=== PATIENT | female | born 1960 | race Caucasian/White ===

== ENCOUNTER 2017-09-30 02:30 | Inpatient (IN) | payer OTHER ==
[2017-09-30] MEDS ORDERED: FAMOTIDINE IV 20 MG/12 ML VIAL IVPUSH ONE (03:05)
--- NOTE | 2017-09-30 03:05 | PDOC ---
History of Present Illness - General Chief Complaint: Chest Pain Stated Complaint: CHEST DISCOMFORT Time Seen by Provider: 09/30/17 02:47 History Source: Patient, Family Exam Limitations: Language Barrier - History of Present Illness Initial Comments: 09/30/17 02:59 57 y/o F with no significant PMH who presents to the ED c/o worsening chest pain over the past 10 hrs. As per pt, at 5PM she started to develop dull chest pressure in her mid-sternal area. Pt tried to sleep this evening and was woken up, as the pain became a 10/10, with sternal pressure at rest, radiating to the back. Her pain is worsened by movement, particularly by leaning forward, and is a/w SOB. Pain has no alleviating factors. She also endorses cold fingertips and nausea. Pt denies ORTIZ, fever, diaphoresis, cough, chills, V/D, recent illnesses, or changes in urinary or bowel function. She had the same pain a week ago, however it subsided on its own. 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 denies cigarette, alcohol, or recreational drug use. 09/30/17 05:45 Past History - Past Medical History Allergies/Adverse Reactions: Allergies Allergy/AdvReac Type Severity Reaction Status Date / Time No Known Allergies Allergy Verified 09/30/17 02:48 Home Medications: Ambulatory Orders NK [No Known Home Medication] 09/30/17 - Suicide/Smoking/Psychosocial Hx Smoking History: Smoker current status UNK Have you smoked in the past 12 months: No Information on smoking cessation initiated: No Hx Alcohol Use: No Drug/Substance Use Hx: No Review of Systems - Review of Systems Able to Perform ROS?: Yes Is the patient limited Romanian proficient: Yes Respiratory: Yes: Shortness of Breath, SOB at Rest Cardiac (ROS): Yes: Chest Pain All Other Systems: Reviewed and Negative *Physical Exam - Vital Signs Last Vital Signs Temp Pulse Resp BP Pulse Ox 98.1 F 78 22 134/79 99 09/30/17 02:46 09/30/17 02:46 09/30/17 02:46 09/30/17 02:46 09/30/17 02:46 - Physical Exam General Appearance: Yes: Nourished, Mild Distress HEENT: positive: EOMI, SULEIMAN Neck: positive: Supple Respiratory/Chest: positive: Chest Tender, Lungs Clear, Normal Breath Sounds Cardiovascular: positive: Regular Rhythm, Regular Rate, S1, S2 Vascular Pulses: Dorsalis-Pedis (R): 2+, Doralis-Pedis (L): 2+ Gastrointestinal/Abdominal: positive: Normal Bowel Sounds, Soft Musculoskeletal: positive: Normal Inspection Extremity: positive: Normal Range of Motion Neurologic: positive: fish smoker II-XII NML intact Heart Score/ECG Review - History History: Moderately suspicious - Electrocardiogram EKG: Normal - Age Age: 45-65 - Risk Factors Risk Factors Heart Score: Yes Hx Obesity Based on the list above the patient has:: 1-2 risk factors - Troponin Troponin: 1-3x normal limit - Score Heart Score - Total: 4 ED Treatment Course - LABORATORY CBC & Chemistry Diagram: 09/30/17 04:29 09/30/17 04:29 Medical Decision Making - Medical Decision Making 09/30/17 03:16 57 y/o F with no significant PMH who presents to the ED c/o worsening chest pain over the past 10 hrs. Current differentials include: gastritis, r/o ACS, prinzmetal's angina, PE (less likely), costochondritis. Pt with reproducible, pleuritic chest pain. Will order the following -Trops -CXR -EKG -20 mg pepcid, maalox -650mg Tylenol 09/30/17 03:57 Pt still c/o abdominal discomfort bedside US - with possible gallstones, will need RUQ sono to check CBD. r/o choledocholithiasis Will give morphine 2mg for pain, protonix 40mg IVP x 1 09/30/17 04:01 initial trop 0.11 will trend - next trop at 9:30AM will give aspirin 324 mg x 1 r/o ACS 09/30/17 04:23 EKG - WNL. normal sinus, normal axis, vent rate 75bpm, LA 152 ms, QRS 86ms, Qtc 433ms 09/30/17 04:52 14.7 leukocytosis -?GI source infection however afebrile , CMP pending ALP mildly elevated K 3.3 will supplement. 09/30/17 05:48 Microblog sent 09/30/17 06:10 Case discussed, will go to AM team- for now will put in for tele as pt with HEART 4, elevated trop Consult- Dr. Tabor 09/30/17 06:11 *DC/Admit/Observation/Transfer Diagnosis at time of Disposition: Chest pain Qualifiers: Chest pain type: unspecified Qualified Code(s): R07.9 - Chest pain, unspecified - Discharge Dispostion Condition at time of disposition: Fair Admit: Yes - Referrals Referrals: ON STAFF,NOT [Primary Care Provider] - - Patient Instructions - Post Discharge Activity
[2017-09-30] MEDS ORDERED: MAG HYDROX/AL HYDROX/SIMETH 355 ML ORAL.SUSP PO ONE (03:06)
[2017-09-30] MEDS ORDERED: ACETAMINOPHEN 325 MG TABLET (FP) PO ONE (03:07)
[2017-09-30] MEDS ORDERED: ONDANSETRON 4 MG/2 ML VIAL IVPUSH ONE (03:22)
[2017-09-30] MEDS ORDERED: MAG HYDROX/AL HYDROX/SIMETH 30 ML UNIT-DOSE CUP ONE (03:23)
[2017-09-30] MEDS ORDERED: ONDANSETRON 4 MG/2 ML VIAL ONE (03:24)
[2017-09-30] MEDS ORDERED: FAMOTIDINE 20 MG/50 ML IVPB 20 MG/50 ML MG IVPB ONE (03:24)
--- NOTE | 2017-09-30 03:48 | PDOC ---
Attending Attestation - Resident Resident Name: Anjali Cabrera - ED Attending Attestation I have performed the following: I have examined & evaluated the patient, The case was reviewed & discussed with the resident, I agree w/resident's findings & plan, Exceptions are as noted - HPI HPI: 09/30/17 03:47 57-year-old female no medical history presents with chest discomfort. The patient was fine yesterday, went to bed and then woke up with reproducible midsternal chest pain and epigastric discomfort. States radiating to her throat and makes her feel short of breath. Reports that the pain radiates to the back. Reports nausea but denies vomiting. Denies fevers or chills. Does not think any particular foods were causing the symptoms. - Physicial Exam PE: 09/30/17 03:47 GENERAL: Awake, alert, and fully oriented. Uncomfortable appearing HEAD: No signs of trauma EYES: PERRLA, EOMI, sclera anicteric, conjunctiva clear ENT: Auricles normal inspection, hearing grossly normal, nares patent NECK: Normal ROM, supple LUNGS: Breath sounds equal, clear to auscultation bilaterally. No wheezes, and no crackles HEART: Regular rate and rhythm, normal S1 and S2, no murmurs, rubs or gallops ABDOMEN: TTP epigastric. Briggs sign negative. Soft, No guarding, no rebound. No masses EXTREMITIES: Normal range of motion, no edema. No clubbing or cyanosis. No cords, erythema, or tenderness NEUROLOGICAL: Cranial nerves II through XII grossly intact. Normal speech, normal gait SKIN: Warm, Dry, normal turgor, no rashes or lesions noted. - Medical Decision Making 09/30/17 03:48 Vital Signs Temp Pulse Resp BP Pulse Ox 98.1 F 78 22 134/79 99 09/30/17 02:46 09/30/17 02:46 09/30/17 02:46 09/30/17 02:46 09/30/17 02:46 57-year-old female with no past medical history presents with atypical chest pain. We'll rule out acute coronary syndrome. I suspect this may be GI as well. such as gastritis. We'll do a bedside ultrasound to evaluate for RUQ. Treat symptoms and reassess. 09/30/17 04:05 09/30/17 04:22 09/30/17 05:26 CBC, BMP 09/30/17 04:29 09/30/17 04:29 CMP Sodium 139 mmol/L (136-145) 09/30/17 04:29 Potassium 3.3 mmol/L (3.5-5.1) L 09/30/17 04:29 Chloride 104 mmol/L (98-107) 09/30/17 04:29 Carbon Dioxide 23 mmol/L (21-32) 09/30/17 04:29 Anion Gap 12 (8-16) 09/30/17 04:29 BUN 12 mg/dL (7-18) 09/30/17 04:29 Creatinine 0.5 mg/dL (0.55-1.02) L 09/30/17 04:29 Creat Clearance w eGFR > 60 (>60) 09/30/17 04:29 Random Glucose 150 mg/dL (74-106) H 09/30/17 04:29 Calcium 8.3 mg/dL (8.5-10.1) L 09/30/17 04:29 Total Bilirubin 0.4 mg/dL (0.2-1.0) 09/30/17 04:29 AST 31 U/L (15-37) 09/30/17 04:29 ALT 51 U/L (12-78) 09/30/17 04:29 Alkaline Phosphatase 139 U/L (45-117) H 09/30/17 04:29 Creatine Kinase 93 IU/L (26-192) 09/30/17 03:23 Troponin I 0.11 ng/ml (0.00-0.05) H 09/30/17 03:23 Total Protein 7.5 g/dl (6.4-8.2) 09/30/17 04:29 Albumin 3.8 g/dl (3.4-5.0) 09/30/17 04:29 Labs reviewed. Ultrasound is still pending and needed to r/o acute wilver. However, with trop of 0.11, will need to consider as ACS. Aspirin and admit to the hospital on telemetry. Heart Score/ECG Review - History History: Moderately suspicious - Electrocardiogram EKG: Normal - Age Age: 45-65 - Risk Factors Risk Factors Heart Score: Yes Hx Obesity Based on the list above the patient has:: 1-2 risk factors - Troponin Troponin: 1-3x normal limit - Score Heart Score - Total: 4 #1 ECG reviewed & interpreted by me at: 04:20 09/30/17 04:22 NSR 75, no std/regulo, normal axis, normal intervals, QTC 433 msec
[2017-09-30] MEDS ORDERED: morphine CARPU-JECT 2 MG/1 ML DISP.SYRIN IVPUSH ONE (03:57)
[2017-09-30] MEDS ORDERED: PANTOPRAZOLE SODIUM 40 MG VIAL IVPUSH ONE (03:57)
[2017-09-30] MEDS ORDERED: ASPIRIN 81 MG CHEWABLE TABLETS PO ONE (04:05)
[2017-09-30] MEDS ORDERED: MORPHINE SULFATE 10 MG/1 ML *VIAL ONE (04:15)
[2017-09-30] MEDS ORDERED: PANTOPRAZOLE SODIUM 40 MG VIAL ONE (04:15)
[2017-09-30 04:39] LABS: BASO % 0.3 % (0-2.0); HEMATOCRIT 37.2 % (32.4-45.2); HEMOGLOBIN 12.5 GM/dL (10.7-15.3); LYMPH % 3.5 % (8-40); MCH 31.3 pg (25.7-33.7); MCHC 33.7 g/dl (32.0-36.0); MEAN CELL VOLUME 92.9 fl (80-96); MEAN PLT VOLUME 8.8 fl (7.5-11.1); NEUT % 92.2 % (42.8-82.8); PLATELET COUNT 264 K/MM3 (134-434); RDW 13.5 % (11.6-15.6); WHITE BLOOD COUNT 14.7 K/mm3 (4.0-10.0)
[2017-09-30 04:52] LABS: INR 1.1 (0.82-1.09); PROTHROMBIN TIME (PATIENT) 12.4 SEC (9.98-11.88)
[2017-09-30 04:55] LABS: ACTIVATED PTT 32.6 SECONDS (26.9-34.4)
[2017-09-30] MEDS ORDERED: ASPIRIN 81 MG CHEWABLE TABLETS ONE (04:57)
[2017-09-30 05:02] LABS: ALBUMIN 3.8 g/dl (3.4-5.0); ALK PHOS 139 U/L (45-117); ANION GAP 12 (8-16); BILIRUBIN,TOTAL 0.4 mg/dL (0.2-1.0); BLOOD UREA NITROGEN 12 mg/dL (7-18); CALCIUM 8.3 mg/dL (8.5-10.1); CHLORIDE 104 mmol/L (98-107); CO2 23 mmol/L (21-32); CREATININE 0.5 mg/dL (0.55-1.02); GLUCOSE,RANDOM 150 mg/dL (74-106); POTASSIUM 3.3 mmol/L (3.5-5.1); SGOT/AST 31 U/L (15-37); SGPT/ALT 51 U/L (12-78); SODIUM 139 mmol/L (136-145); TOT PROT 7.5 g/dl (6.4-8.2)
[2017-09-30] MEDS ORDERED: POTASSIUM CHLORIDE ORAL LIQUID 20 MEQ/15 ML PO ONE (05:05)
[2017-09-30] MEDS ORDERED: POTASSIUM CHLORIDE ORAL LIQUID 20 MEQ/15 ML ONE (05:53)
--- NOTE | 2017-09-30 08:57 | HP ---
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 Pain increases with breathing, and when she touch her lower part of sternum, pain also increases when she leans forward. Non radiating. No increase of pain with eating. Pain was not associated with diaphoresis, palpitations, dizziness, lightheadedness. Denies othopnea, paroxysmal dyspnea, denies swelling in legs, Denies trauma to chest, Denies heart burn, denies recent travel. Denies fever, cough, chills. Patient reports one episode of vomiting in hospital after her blood work was done. Pain got better after getting morphine in ED ER course was notable for: (1)cbc, cmp, ekg (2)cxr Recent Travel:no PAST MEDICAL HISTORY: no PAST SURGICAL HISTORY: no Social History: Smoking: no Alcohol: no Drugs: no Family History: No family h/o CAD Allergies No Known Allergies Allergy (Verified 09/30/17 02:48) HOME MEDICATIONS: Home Medications Medication Instructions Recorded NK [No Known Home Medication] 09/30/17 REVIEW OF SYSTEMS CONSTITUTIONAL: Absent: fever, chills, diaphoresis, generalized weakness, malaise, loss of appetite, weight change HEENT: Absent: rhinorrhea, nasal congestion, throat pain, throat swelling, difficulty swallowing, mouth swelling, ear pain, eye pain, visual changes CARDIOVASCULAR: Absent: , syncope, palpitations, irregular heart rate, lightheadedness, peripheral edema RESPIRATORY: Absent: cough, shortness of breath, dyspnea with exertion, orthopnea, wheezing, stridor, hemoptysis GASTROINTESTINAL: Absent: abdominal pain, abdominal distension, nausea, vomiting, diarrhea, constipation, melena, hematochezia GENITOURINARY: Absent: dysuria, frequency, urgency, hesitancy, hematuria, flank pain, genital pain MUSCULOSKELETAL: Absent: myalgia, arthralgia, joint swelling, back pain, neck pain NEUROLOGIC: Absent: headache, focal weakness or paresthesias, dizziness, PSYCHIATRIC: Absent: anxiety, depression, PHYSICAL EXAMINATION Vital Signs - 24 hr 09/30/17 09/30/17 02:46 08:10 Temperature 98.1 F 98 F Pulse Rate 78 Pulse Rate [ 69 Right Radial] Respiratory 22 16 Rate Blood Pressure 134/79 Blood Pressure 127/63 [Left Arm] O2 Sat by Pulse 99 100 Oximetry (%) GENERAL: Awake, alert, and fully oriented, in no acute distress. HEAD: Normal with no signs of trauma. EYES: Pupils equal, round and reactive to light, extraocular movements intact, sclera anicteric, conjunctiva clear. No lid lag. EARS, NOSE, THROAT: Ears normal, nares patent, oropharynx clear without exudates. Moist mucous membranes. NECK: Normal range of motion, supple without lymphadenopathy, JVD, or masses. LUNGS: Breath sounds equal, clear to auscultation bilaterally. No wheezes, and no crackles. No accessory muscle use. HEART: Regular rate and rhythm, normal S1 and S2 without murmur, rub or gallop. ABDOMEN: Soft, nontender, not distended, normoactive bowel sounds, no guarding, no rebound, no masses. No hepatomegaly or splenomegaly. MUSCULOSKELETAL: mild tenderness on lower costochondral juntions. UPPER EXTREMITIES: 2+ pulses, warm, well-perfused. LOWER EXTREMITIES: 2+ pulses, warm, well-perfused. No calf tenderness. No peripheral edema. NEUROLOGICAL: Cranial nerves II-XII intact. Normal speech. Normal gait. PSYCHIATRIC: Cooperative. Good eye contact. Appropriate mood and affect. SKIN: Warm, dry, normal turgor, no rashes or lesions noted, normal capillary refill. Laboratory Results - last 24 hr 09/30/17 09/30/17 09/30/17 03:23 04:29 04:29 WBC 14.7 H RBC 4.00 Hgb 12.5 Hct 37.2 MCV 92.9 MCH 31.3 MCHC 33.7 RDW 13.5 Plt Count 264 MPV 8.8 Neutrophils % 92.2 H Lymphocytes % 3.5 L Monocytes % 4.0 Eosinophils % 0.0 Basophils % 0.3 PT with INR INR PTT (Actin FS) Sodium 139 Potassium 3.3 L Chloride 104 Carbon Dioxide 23 Anion Gap 12 BUN 12 Creatinine 0.5 L Creat Clearance w eGFR > 60 Random Glucose 150 H Calcium 8.3 L Total Bilirubin 0.4 AST 31 ALT 51 Alkaline Phosphatase 139 H Creatine Kinase 93 Troponin I 0.11 H Total Protein 7.5 Albumin 3.8 09/30/17 04:29 WBC RBC Hgb Hct MCV MCH MCHC RDW Plt Count MPV Neutrophils % Lymphocytes % Monocytes % Eosinophils % Basophils % PT with INR 12.40 H INR 1.10 PTT (Actin FS) 32.6 Sodium Potassium Chloride Carbon Dioxide Anion Gap BUN Creatinine Creat Clearance w eGFR Random Glucose Calcium Total Bilirubin AST ALT Alkaline Phosphatase Creatine Kinase Troponin I Total Protein Albumin ASSESSMENT/PLAN: 57 y/o female with no significant past medical history came to hospital with complain of chest pain Chest pain: d/d costochondritis, symptomatic gall stone ds, CAD, cardiac exercise specialist Trend trop i: initial trop 0.11 monitor vitals Repeat ekg, cmp, mg, phos cardiology consult: DR curran ECHO lipid profile Ultrasound reviewed. surgery consult: for symptomatic gall stone ds. Leucocytosis: could be from gall stone ds or stress induced repeat cbc tomorrow. Fluid: NS 75ml/hr electrolyte: repeat sr k, got 20meq k in ed nutrition: NPO for now DVT pro: heparin Gi pro: pepcid dispo: admit tele Visit type - Emergency Visit Emergency Visit: Yes ED Registration Date: 09/30/17 Care time: The patient presented to the Emergency Department on the above date and was hospitalized for further evaluation of their emergent condition. - New Patient This patient is new to me today: Yes Date on this admission: 09/30/17 - Critical Care Critical Care patient: No Hospitalist Screening - Colonoscopy Questionnaire Colonoscopy Questionnaire: Colonoscopy Questionnaire - Patient: 50 - 75 years old and never had a screening colonoscopy: Unknown History of colon or rectal polyps, or CA: Unknown History of IBD, Crohn's disease or UC: Unknown History of abdominal radiation therapy as a child: Unknown - Relative: 1 with colon or rectal CA, or polyps at age 60 or younger: Unknown Colon or rectal CA diagnosed at age 45 or younger: Unknown Multiple relatives with colon or rectal CA: Unknown - Outcome: Screening Result: Negative Screen
[2017-09-30] MEDS ORDERED: MORPHINE SULFATE 10 MG/1 ML *VIAL IM PRN (09:14)
[2017-09-30] MEDS ORDERED: SODIUM CHLORIDE 1,000 ML IV SCH (09:15)
[2017-09-30 09:51] LABS: ALBUMIN 3.4 g/dl (3.4-5.0); ANION GAP 6 (8-16); BLOOD UREA NITROGEN 11 mg/dL (7-18); CALCIUM 8.1 mg/dL (8.5-10.1); CHLORIDE 108 mmol/L (98-107); CHOLESTEROL 155 mg/dL (50-200); CO2 26 mmol/L (21-32); CREATININE 0.6 mg/dL (0.55-1.02); GLUCOSE,RANDOM 109 mg/dL (74-106); MAGNESIUM 2.1 mg/dL (1.8-2.4); PHOSPHOROUS 3.5 mg/dL (2.5-4.9); POTASSIUM 4.3 mmol/L (3.5-5.1); SGOT/AST 27 U/L (15-37); SGPT/ALT 49 U/L (12-78); SODIUM 140 mmol/L (136-145)
[2017-09-30 09:54] LABS: ALK PHOS 126 U/L (45-117); BILIRUBIN,TOTAL 0.6 mg/dL (0.2-1.0); HDL CHOLESTEROL 62 mg/dL (40-60); LDL CHOLESTEROL (ONLY SJRH) 87 mg/dL (5-100); TOT PROT 6.8 g/dl (6.4-8.2); TRIGLYCERIDES 51 mg/dL (35-160)
[2017-09-30] MEDS ORDERED: FAMOTIDINE IV 20 MG/12 ML VIAL IVPUSH SCH (10:00)
[2017-09-30 10:26] LABS: URINE APPEARANCE CLEAR; URINE BILIRUBIN NEGATIVE (NEGATIVE); URINE BLOOD 2+ (NEGATIVE); URINE COLOR YELLOW; URINE GLUCOSE (UA) NEGATIVE (NEGATIVE); URINE KETONE NEGATIVE (NEGATIVE); URINE LEUK ESTERASE NEGATIVE (NEGATIVE); URINE NITRITE NEGATIVE (NEGATIVE); URINE PROTEIN NEGATIVE (NEGATIVE); URINE UROBILINOGEN NEGATIVE mg/dL (0.2-1.0)
[2017-09-30] MEDS: HEPARIN NA (PORCINE) 5,000 UNITS/ML 1ML VIAL SQ SCH ×3 (10:30→22:13)
[2017-09-30] MEDS: FAMOTIDINE 20 MG/50 ML IVPB 20 MG/50 ML MG IVPB SCH ×2 (10:30→22:13)
--- NOTE | 2017-09-30 10:30 | CONSULT ---
- Consultation REQUESTING PROVIDER: Jamar EL CONSULT REQUEST: We have been asked to surgically evaluate this patient for possible symptomatic gallbladder disease PCP:Taurus Alan MD HISTORY OF PRESENT ILLNESS: 57 y/o female presented to the ED w/ SSCP and SOB which is recurrent over the last 10 days; she denies n/v/ fatty food intoelerance; pain occurred w/o relation to eating and was originally described as "heartburn"; she denies abdominal pain per se and points to her sternum as to where the pressure like/burning pain is at this time; a dx. w/u is in progress PMHx: none PSHx: none Home Medications Medication Instructions Recorded NK [No Known Home Medication] 09/30/17 Allergies Allergy/AdvReac Type Severity Reaction Status Date / Time No Known Allergies Allergy Verified 09/30/17 02:48 PHYSICAL EXAM: GENERAL: Awake, alert, and fully oriented, in no acute distress. HEAD: Normal with no signs of trauma. EYES: PERRL, sclera anicteric, conjunctiva clear. NECK: Normal ROM, supple without lymphadenopathy, JVD, or masses. ABDOMEN: Soft, nontender, not distended, normoactive bowel sounds, no guarding, no rebound, no masses. No organomegaly. No scars; no hernias MUSCULOSKELETAL: Normal ROM at all joints. No bony deformities or tenderness. No CVA tenderness. UPPER EXTREMITIES: 2+ pulses, warm, well-perfused. No cyanosis. Cap refill <2 seconds. No peripheral edema. LOWER EXTREMITIES: 2+ pulses, warm, well-perfused. No calf tenderness. No peripheral edema. NEUROLOGICAL: Normal speech, gait not observed. PSYCH: Cooperative. Good eye contact. Appropriate mood and affect. SKIN: Warm, dry, normal turgor, no rashes or lesions noted. Vital Signs Temperature 98 F 09/30/17 08:10 Pulse Rate 69 09/30/17 08:10 Respiratory Rate 16 09/30/17 08:10 Blood Pressure 127/63 09/30/17 08:10 O2 Sat by Pulse Oximetry (%) 100 09/30/17 08:10 Lab Results WBC 14.7 K/mm3 (4.0-10.0) H 09/30/17 04:29 RBC 4.00 M/mm3 (3.60-5.2) 09/30/17 04:29 Hgb 12.5 GM/dL (10.7-15.3) 09/30/17 04:29 Hct 37.2 % (32.4-45.2) 09/30/17 04:29 MCV 92.9 fl (80-96) 09/30/17 04:29 MCHC 33.7 g/dl (32.0-36.0) 09/30/17 04:29 RDW 13.5 % (11.6-15.6) 09/30/17 04:29 Plt Count 264 K/MM3 (134-434) 09/30/17 04:29 Sodium 140 mmol/L (136-145) 09/30/17 09:05 Potassium 4.3 mmol/L (3.5-5.1) 09/30/17 09:05 Chloride 108 mmol/L (98-107) H 09/30/17 09:05 Carbon Dioxide 26 mmol/L (21-32) 09/30/17 09:05 Anion Gap 6 (8-16) L 09/30/17 09:05 BUN 11 mg/dL (7-18) 09/30/17 09:05 Creatinine 0.6 mg/dL (0.55-1.02) 09/30/17 09:05 Random Glucose 109 mg/dL (74-106) H 09/30/17 09:05 Calcium 8.1 mg/dL (8.5-10.1) L 09/30/17 09:05 INR 1.10 (0.82-1.09) 09/30/17 04:29 US reviewed/labs reviewed. IMP:doubt symptomatic gallbladder disease given hx. and physical fndings; would continuw w/u for other causes including cardiac and if neg GI eval to r/o GERD / PUD PLAN: Would keep NPO/IVF/PPI's; will f/u. Anish Conte MD FACS Visit type - Case Type Case Type: ED Admission - Emergency Emergency Visit: Yes ED Registration Date: 09/30/17 Care time: The patient presented to the Emergency Department on the above date and was hospitalized for further evaluation of their emergent condition. - New patient This patient is new to me today: Yes Date on this admission: 09/30/17 - Critical Care Critical Care patient: No
--- NOTE | 2017-09-30 10:31 | PN ---
Teaching Attending Note Name of Resident: Silviano Monte ATTENDING PHYSICIAN STATEMENT Time of evaluation: 8:30 Am I saw and evaluated the patient. I reviewed the resident's note and discussed the case with the resident. I agree with the resident's findings and plan as documented. SUBJECTIVE: 57 yof with no significant pMHX comes with chest pain starting last night, reports substernal/epigastric dull, worsened with movements and sitting up, inability to catch full breath, initially radiation to back that markedly improved with morphine in the ED. Had an episode of vomiting in the ED, denies any fevers chills, otherwise abdominal pain, or changes in bowels. Similar milder episode sometime back with spontaneous resolution. Currently with minimal discomfort in lower sternal/epigastric region thats worse with touch, movements and deep breath sounds with focal tenderness in the area. 12 point ROS done, neg except above. OBJECTIVE: Vital Signs Period Temp Pulse Resp BP Sys/Rao Pulse Ox Last 24 Hr 98 F-98.1 F 69-78 16-22 127-134/63-79 99-100 Intake & Output 09/27/17 09/28/17 09/29/17 09/30/17 23:59 23:59 23:59 23:59 Intake Total 400 Balance 400 Weight 140 lb GENERAL: Awake, alert, and fully oriented, in no acute distress. HEAD: Normal with no signs of trauma. EYES: Pupils equal, round and reactive to light, extraocular movements intact, sclera anicteric, conjunctiva clear. No lid lag. EARS, NOSE, THROAT: Ears normal, nares patent, oropharynx clear without exudates. Moist mucous membranes. NECK: Normal range of motion, supple without lymphadenopathy, JVD, or masses. LUNGS: Breath sounds equal, clear to auscultation bilaterally. No wheezes, and no crackles. No accessory muscle use. tenderness in lower sternal region HEART: Regular rate and rhythm, normal S1 and S2 without murmur, rub or gallop. ABDOMEN: Soft, mild tenderness in epigastric region, neg Cecil sign(examined at bedside), not distended, normoactive bowel sounds, no guarding, no rebound, no masses. No hepatomegaly or splenomegaly. MUSCULOSKELETAL: Normal range of motion at all joints. No bony deformities or tenderness. No CVA tenderness. UPPER EXTREMITIES: 2+ pulses, warm, well-perfused. No cyanosis. No clubbing. No peripheral edema. LOWER EXTREMITIES: 2+ pulses, warm, well-perfused. No calf tenderness. No peripheral edema. NEUROLOGICAL: Cranial nerves II-XII intact. Normal speech. PSYCHIATRIC: Cooperative. Good eye contact. Appropriate mood and affect. SKIN: Warm, dry, normal turgor, no rashes or lesions noted, normal capillary refill. Home Medication List Medication Instructions Recorded Confirmed Type NK [No Known Home Medication] 09/30/17 09/30/17 History Active Medications Generic Name Dose Route Start Last Admin Trade Name Freq PRN Reason Stop Dose Admin Acetaminophen 650 mg 09/30/17 09:16 Tylenol - PO Q6H PRN PAIN LEVEL 1-5 Heparin Sodium (Porcine) 5,000 unit 09/30/17 10:00 09/30/17 10:30 Heparin - SQ 5,000 unit TID GWYN Administration Famotidine/Sodium Chloride 20 mg in 50 mls @ 100 mls/hr 09/30/17 10:00 10:30 Pepcid 20 Mg Premixed Ivpb - IVPB 100 mls/hr BID GWYN Administration CEFTRIAXONE 1 G/50 ML PREMIX 50 mls @ 100 mls/hr 09/30/17 11:00 Ceftriaxone 1 Gm-D5w Bag IVPB DAILY GWYN Metronidazole 500 mg in 100 mls @ 100 mls/hr 09/30/17 11:00 Flagyl 500mg Premixed Ivpb - IVPB Q8H-IV GWYN Dextrose/Sodium Chloride 1,000 mls @ 75 mls/hr 09/30/17 10:45 D5-Ns - IV ASDIR GWYN Morphine Sulfate 1 mg 09/30/17 09:14 Morphine Injection - IM Q6H PRN PAIN LEVEL 6-10 Promethazine HCl 12.5 mg 09/30/17 09:12 Phenergan Injection - IVPB Q6H PRN NAUSEA AND/OR VOMITING Laboratory Results - last 24 hr 09/30/17 09/30/17 09/30/17 03:23 04:29 04:29 WBC 14.7 H RBC 4.00 Hgb 12.5 Hct 37.2 MCV 92.9 MCH 31.3 MCHC 33.7 RDW 13.5 Plt Count 264 MPV 8.8 Neutrophils % 92.2 H Lymphocytes % 3.5 L Monocytes % 4.0 Eosinophils % 0.0 Basophils % 0.3 PT with INR INR PTT (Actin FS) D-Dimer Sodium 139 Potassium 3.3 L Chloride 104 Carbon Dioxide 23 Anion Gap 12 BUN 12 Creatinine 0.5 L Creat Clearance w eGFR > 60 Random Glucose 150 H Calcium 8.3 L Phosphorus Magnesium Total Bilirubin 0.4 AST 31 ALT 51 Alkaline Phosphatase 139 H Creatine Kinase 93 Troponin I 0.11 H Total Protein 7.5 Albumin 3.8 Triglycerides Cholesterol Total LDL Cholesterol HDL Cholesterol 09/30/17 09/30/17 09/30/17 04:29 09:05 09:05 WBC RBC Hgb Hct MCV MCH MCHC RDW Plt Count MPV Neutrophils % Lymphocytes % Monocytes % Eosinophils % Basophils % PT with INR 12.40 H INR 1.10 PTT (Actin FS) 32.6 D-Dimer 602 H Sodium 140 Potassium 4.3 Chloride 108 H Carbon Dioxide 26 Anion Gap 6 L BUN 11 Creatinine 0.6 Creat Clearance w eGFR > 60 Random Glucose 109 H Calcium 8.1 L Phosphorus 3.5 Magnesium 2.1 Total Bilirubin 0.6 D AST 27 ALT 49 Alkaline Phosphatase 126 H Creatine Kinase Troponin I Total Protein 6.8 Albumin 3.4 Triglycerides 51 Cholesterol 155 Total LDL Cholesterol 87 HDL Cholesterol 62 H 09/30/17 09:05 WBC RBC Hgb Hct MCV MCH MCHC RDW Plt Count MPV Neutrophils % Lymphocytes % Monocytes % Eosinophils % Basophils % PT with INR INR PTT (Actin FS) D-Dimer Sodium Potassium Chloride Carbon Dioxide Anion Gap BUN Creatinine Creat Clearance w eGFR Random Glucose Calcium Phosphorus Magnesium Total Bilirubin AST ALT Alkaline Phosphatase Creatine Kinase Troponin I 0.06 H Total Protein Albumin Triglycerides Cholesterol Total LDL Cholesterol HDL Cholesterol ASSESSMENT AND PLAN: 57 yof with no significant PMHX admitted with lower chest/epigastric pain, found with symptomatic gall bladder disease and cholelithiasis -Chest/Epigastric pain, earlier radiation to back, Symptomatic gall bladder disease +/- Mild acute gall stone pancreatitis -Atypical chest pain, low suspicion for ACS given presentation and above findings,unlikely PE given absence of tachycardia, hypoxia, risk factors, strong alternative explanation and tenderness on exam Plan: NPO, surgery consult with Dr. Conte. Check lipase/amylase. Ceftriaxone/flagyl, D5NS IVF. MRCP, GI input accordingly. Tn noted. Telemetry, check 2 D echo. Cardiology consulted in ED,low suspicion currently. Repeat EKG GI/DVTPPX dispo pending resolution of medical issues. Plan discussed with patient in detail, all questions answered.
[2017-09-30 10:39] LABS: EPI CELLS RARE /HPF (FEW); URINE MUCUS MANY
[2017-09-30] MEDS ORDERED: DEXTROSE 5%-NORMAL SALINE 1,000 ML IV SCH (10:45)
--- NOTE | 2017-09-30 11:38 | EKG ---
Test Reason : Blood Pressure : / mmHG Vent. Rate : 076 BPM Atrial Rate : 076 BPM P-R Int : 156 ms QRS Dur : 090 ms QT Int : 396 ms P-R-T Axes : 061 036 030 degrees QTc Int : 445 ms NORMAL SINUS RHYTHM WHEN COMPARED WITH ECG OF 30-SEP-2017 04:17, NO SIGNIFICANT CHANGE WAS FOUND Confirmed by MD KATELYN, PILAR ([id number]) on 09/30/2017 11:37:37 AM Referred By: Subha CHACON Confirmed By:PILAR ZEPEDA MD
--- NOTE | 2017-09-30 11:38 | EKG ---
Test Reason : Blood Pressure : / mmHG Vent. Rate : 075 BPM Atrial Rate : 075 BPM P-R Int : 152 ms QRS Dur : 086 ms QT Int : 388 ms P-R-T Axes : 048 032 024 degrees QTc Int : 433 ms POOR DATA QUALITY, INTERPRETATION MAY BE ADVERSELY AFFECTED NORMAL SINUS RHYTHM NORMAL ECG NO PREVIOUS ECGS AVAILABLE Confirmed by MD KATELYN, PILAR ([id number]) on 09/30/2017 11:38:17 AM Referred By: Confirmed By:PILAR ZEPEDA MD
[2017-09-30 13:04] VITALS: BMI 26.6
[2017-09-30] MEDS: CEFTRIAXONE 1 G/50 ML PREMIX 50 ML IVPB SCH (13:17)
--- NOTE | 2017-09-30 14:59 | CON.CARD ---
Consult Consult Specialty:: Cardiology Reason for Consultation:: chest pain - History of Present Illness History of Present Illness: 57 y/o female with no significant past medical history admitted with constant chest pain which started yesterday, constant, pressure type, with radiation to the shoulders. Pain increases with breathing, and when she touch her lower part of sternum, pain also increases when she leans forward. No diaphoresis, palpitations, dizziness, lightheadedness. Denies othopnea, paroxysmal dyspnea. ECG was normal. Pain got better after getting morphine in ED She has minimally elevated TP-I and elevated DDimer - History Source History Provided By: Patient, Medical Record Limitations to Obtaining History: No Limitations - Alcohol/Substance Use Hx Alcohol Use: No - Smoking History Smoking history: Never smoked Have you smoked in the past 12 months: No Home Medications - Allergies Allergies/Adverse Reactions: Allergies Allergy/AdvReac Type Severity Reaction Status Date / Time No Known Allergies Allergy Verified 09/30/17 02:48 - Home Medications Home Medications: Ambulatory Orders NK [No Known Home Medication] 09/30/17 Review of Systems - Review of Systems Constitutional: reports: No Symptoms Eyes: reports: No Symptoms HENT: reports: No Symptoms Neck: reports: No Symptoms Cardiovascular: reports: Chest Pain. denies: Edema, Palpitations, Shortness of Breath Respiratory: denies: Cough, Exercise Intolerance, Hemoptysis, Orthopnea, SOB Gastrointestinal: reports: Abdominal Pain Endocrine: reports: No Symptoms. denies: Excessive Sweating, Flushing, Increased Hunger, Increased Thirst, Intolerance to Cold Vital Signs: Vital Signs Temperature 99.0 F 09/30/17 14:11 Pulse Rate 80 09/30/17 14:11 Respiratory Rate 16 09/30/17 14:11 Blood Pressure 122/78 09/30/17 14:11 O2 Sat by Pulse Oximetry (%) 100 09/30/17 08:10 Constitutional: Yes: Well Nourished, No Distress, Calm Eyes: Yes: Conjunctiva Clear, EOM Intact HENT: Yes: Atraumatic, Normocephalic Neck: Yes: Supple, Trachea Midline Respiratory: Yes: Regular, CTA Bilaterally Gastrointestinal: Yes: Normal Bowel Sounds, Soft Cardiovascular: Yes: Regular Rate and Rhythm, Other (Moderate reproducible chest pain.). No: Pulse Irregular, Gallop, Rub, Varicosities JVD: No Carotid Bruit: No PMI: Non-Displaced Heart Sounds: Yes: S1, S2 Murmur: No: Systolic Murmur, Diastolic Murmur Edema: No - Other Data Labs, Other Data: CBC, BMP 09/30/17 04:29 09/30/17 09:05 INR, PTT INR 1.10 (0.82-1.09) 09/30/17 04:29 Troponin, BNP 09/30/17 09/30/17 03:23 09:05 Troponin I 0.11 H 0.06 H Troponin, BNP 09/30/17 09/30/17 03:23 09:05 Troponin I 0.11 H 0.06 H NSR no STT changes Imaging - Results Chest X-ray: Report Reviewed Problem List - Problems (1) Chest pain Code(s): R07.9 - CHEST PAIN, UNSPECIFIED Qualifiers: Chest pain type: unspecified Qualified Code(s): R07.9 - Chest pain, unspecified Assessment/Plan 57 F with reporducible CP now relieved with mildly elevated TP-I and Ddimer level, leukocytosis and normal ECG. Doubt acute ischemic injury. TP-i less sensitive adn CP atypical. Suggest nuclear stress test to exclude CAD and assess LV function.
[2017-09-30] MEDS ORDERED: FLU VACCINE QUAD 60 MCG/0.5 ML (MDV 17-18) IM ONE (15:00)
[2017-09-30] MEDS: DEXTROSE 5%-NORMAL SALINE 1,000 ML IV SCH (15:15)
[2017-09-30] MEDS: ACETAMINOPHEN 325 MG TABLET (FP) PO PRN (17:11)
[2017-09-30] MEDS: PROMETHAZINE HCL 25 MG/1 ML VIAL IVPB PRN (17:34)
[2017-10-01] MEDS: DEXTROSE 5%-NORMAL SALINE 1,000 ML IV SCH ×2 (01:10→15:17)
[2017-10-01] MEDS: HEPARIN NA (PORCINE) 5,000 UNITS/ML 1ML VIAL SQ SCH (06:08)
[2017-10-01] MEDS ORDERED: METOPROLOL TARTRATE 5 MG/5 ML VIAL IVPUSH ONE (07:26)
[2017-10-01] MEDS ORDERED: METOPROLOL TARTRATE 5 MG/5 ML VIAL ONE (07:29)
[2017-10-01 07:39] LABS: BASO % 0.1 % (0-2.0); EOS % 0.1 % (0-4.5); HEMOGLOBIN 11.4 GM/dL (10.7-15.3); MCH 31.9 pg (25.7-33.7); MCHC 34.4 g/dl (32.0-36.0); MEAN CELL VOLUME 92.6 fl (80-96); MEAN PLT VOLUME 9.1 fl (7.5-11.1); MONO % 9.6 % (3.8-10.2); NEUT % 77.2 % (42.8-82.8); PLATELET COUNT 223 K/MM3 (134-434); RBC 3.56 M/mm3 (3.60-5.2); RDW 13.8 % (11.6-15.6); WHITE BLOOD COUNT 9.8 K/mm3 (4.0-10.0)
[2017-10-01] MEDS ORDERED: dilTIAZem HCL 50 MG/10 ML - 10 ML VIAL IVPUSH ONE ×2 (07:57→09:14)
--- NOTE | 2017-10-01 07:57 | PN ---
Teaching Attending Note Name of Resident: Shani Roldan ATTENDING PHYSICIAN STATEMENT I saw and evaluated the patient. I reviewed the resident's note and discussed the case with the resident. I agree with the resident's findings and plan as documented. SUBJECTIVE: Called as patient tachycardic, rapid afib 150s-170s, patient seen , reports palpitations and dizziness. Also still with lower sternal epigastric pain, intermittent but better and worse with deep breaths. no nausea, vomiting, chest pressure or new complaints otherwise. OBJECTIVE: Vital Signs Period Temp Pulse Resp BP Sys/Rao Pulse Ox Last 24 Hr 98 F-100.8 F 64-158 16-18 122-154/63-99 94-100 Intake & Output 09/28/17 09/29/17 09/30/17 10/01/17 23:59 23:59 23:59 23:59 Intake Total 1070 Balance 1070 Weight 146 lb General: lying in bed in no acute distress Chest: CTAB, no rales or wheezing Abdomen: soft, minimal lower sternal/epigastric tenderness, no voluntary or involuntary guarding or rigidity, positive bowel sounds CVS;S1s2 irregular rapid extremities: no edema Home Medication List Medication Instructions Recorded Confirmed Type NK [No Known Home Medication] 09/30/17 09/30/17 History Active Medications Generic Name Dose Route Start Last Admin Trade Name Melissa PRN Reason Stop Dose Admin Acetaminophen 650 mg 09/30/17 09:16 09/30/17 17:11 Tylenol - PO 650 mg Q6H PRN Administration PAIN LEVEL 1-5 Diltiazem HCl 10 mg 10/01/17 07:57 Cardizem Injection - IVPUSH 10/01/17 07:58 ONCE ONE Diltiazem HCl 30 mg 10/01/17 12:00 Cardizem - PO Q6HPO GWYN Diltiazem HCl 30 mg 10/01/17 07:58 Cardizem - PO 10/01/17 07:59 ONCE ONE Heparin Sodium (Porcine) 5,000 unit 09/30/17 10:00 10/01/17 06:08 Heparin - SQ 5,000 unit TID GWYN Administration Famotidine/Sodium Chloride 20 mg in 50 mls @ 100 mls/hr 09/30/17 10:00 22:13 Pepcid 20 Mg Premixed Ivpb - IVPB 100 mls/hr BID GWYN Administration CEFTRIAXONE 1 G/50 ML PREMIX 50 mls @ 100 mls/hr 09/30/17 11:00 09/30/17 13: 17 Ceftriaxone 1 Gm-D5w Bag IVPB 100 mls/hr DAILY GWYN Administration Metronidazole 500 mg in 100 mls @ 100 mls/hr 09/30/17 11:00 10/01/17 01:09 Flagyl 500mg Premixed Ivpb - IVPB 100 mls/hr Q8H-IV WGYN Administration Dextrose/Sodium Chloride 1,000 mls @ 100 mls/hr 09/30/17 13:40 10/01/17 01:10 D5-Ns - IV 100 mls/hr ASDIR GWYN Administration Diltiazem HCl 125 mg/ Dextrose 125 mls @ 5 mls/hr 10/01/17 08:00 IVPB TITR GWYN Protocol 5 MG/HR Morphine Sulfate 1 mg 09/30/17 09:14 09/30/17 11:37 Morphine Injection - IM 1 mg Q6H PRN Administration PAIN LEVEL 6-10 Promethazine HCl 12.5 mg 09/30/17 09:12 09/30/17 17:34 Phenergan Injection - IVPB 12.5 mg Q6H PRN Administration NAUSEA AND/OR VOMITING Laboratory Results - last 24 hr 09/30/17 09/30/17 09/30/17 09:05 09:05 09:05 WBC RBC Hgb Hct MCV MCH MCHC RDW Plt Count MPV Neutrophils % Lymphocytes % Monocytes % Eosinophils % Basophils % D-Dimer 602 H Sodium 140 Potassium 4.3 Chloride 108 H Carbon Dioxide 26 Anion Gap 6 L BUN 11 Creatinine 0.6 Creat Clearance w eGFR > 60 Random Glucose 109 H Calcium 8.1 L Phosphorus 3.5 Magnesium 2.1 Total Bilirubin 0.6 D AST 27 ALT 49 Alkaline Phosphatase 126 H Troponin I 0.06 H Total Protein 6.8 Albumin 3.4 Triglycerides 51 Cholesterol 155 Total LDL Cholesterol 87 HDL Cholesterol 62 H Total Amylase 57 Lipase 72 L Urine Color Urine Appearance Urine pH Ur Specific [place] Urine Protein Urine Glucose (UA) Urine Ketones Urine Blood Urine Nitrite Urine Bilirubin Urine Urobilinogen Ur Leukocyte Esterase Urine WBC (Auto) Urine RBC (Auto) Ur Epithelial Cells Urine Mucus 09/30/17 10/01/17 09:30 06:20 WBC 9.8 D RBC 3.56 L Hgb 11.4 Hct 33.0 MCV 92.6 MCH 31.9 MCHC 34.4 RDW 13.8 Plt Count 223 MPV 9.1 Neutrophils % 77.2 Lymphocytes % 13.0 D Monocytes % 9.6 D Eosinophils % 0.1 D Basophils % 0.1 D-Dimer Sodium Potassium Chloride Carbon Dioxide Anion Gap BUN Creatinine Creat Clearance w eGFR Random Glucose Calcium Phosphorus Magnesium Total Bilirubin AST ALT Alkaline Phosphatase Troponin I Total Protein Albumin Triglycerides Cholesterol Total LDL Cholesterol HDL Cholesterol Total Amylase Lipase Urine Color Yellow Urine Appearance Clear Urine pH 6.0 Ur Specific [place] 1.017 Urine Protein Negative Urine Glucose (UA) Negative Urine Ketones Negative Urine Blood 2+ H Urine Nitrite Negative Urine Bilirubin Negative Urine Urobilinogen Negative Ur Leukocyte Esterase Negative Urine WBC (Auto) 8 Urine RBC (Auto) 12 Ur Epithelial Cells Rare Urine Mucus Many MRCP done, report pending (radiology called) EKG: afib with RVR 150s, T inversions in with < [address] depressions in V3-V6, T inversion in II repeat EKG (after metoprolol 5 mg IV and cardizem 10 mg IV) Afib 80s, otherwise unchanged ASSESSMENT AND PLAN: 57 yof admitted with chest/abdominal pain, now with rapid Afib with RVR. -New onset rapid Afib with RVR -Epigastric/Lower sternal pain, ?symptomatic gall bladder disease, vs atypical cardiac symptoms, r/o PE -SIRS (fevers, tachycardia and elevated WBC on admission) Plan: Rate improved with lopressor 5 mg IV and cardizem 10 mg IV, still Afib. Cardizem drip if recurrent tachycardia. Start cardizem PO 30 mg q6h. Check TSH, Troponin. Given tachycardia, with ?pleuritic chest pain and borderline d-dimer, CTA chest. Called placed out cardiology, Dr. Jhaveri covering, await call back. Start anti-coagulation pending above and FOBT. Radiology called to retrive MRI results, will follow up. COntinue NPO, ceftriaxone/flagyl day 2. Surgery input noted, continue to monitor. IV PPI, supportive treatment. [facility] as needs cardizem drip and closer monitoring. Plan discussed with patient and nursing. Total critical care time spent at bedside 35 min.
[2017-10-01] MEDS ORDERED: dilTIAZem HCL 30 MG TABLET (FP) PO ONE (07:58)
[2017-10-01] MEDS ORDERED: DILTIAZEM INJECTION 125 MG in DEXTROSE 5%-WATER - 100 ML IVPB SCH (08:00)
[2017-10-01 08:04] LABS: ANION GAP 9 (8-16); BLOOD UREA NITROGEN 8 mg/dL (7-18); CALCIUM 7.6 mg/dL (8.5-10.1); CHLORIDE 111 mmol/L (98-107); CO2 23 mmol/L (21-32); GLUCOSE,RANDOM 121 mg/dL (74-106); POTASSIUM 3.3 mmol/L (3.5-5.1); SGPT/ALT 38 U/L (12-78); SODIUM 143 mmol/L (136-145)
[2017-10-01 08:07] LABS: ALK PHOS 98 U/L (45-117); BILIRUBIN,TOTAL 0.5 mg/dL (0.2-1.0); CREATININE 0.5 mg/dL (0.55-1.02); SGOT/AST 16 U/L (15-37); TOT PROT 6.3 g/dl (6.4-8.2)
[2017-10-01] MEDS: CEFTRIAXONE 1 G/50 ML PREMIX 50 ML IVPB SCH (09:36)
[2017-10-01] MEDS: FAMOTIDINE 20 MG/50 ML IVPB 20 MG/50 ML MG IVPB SCH ×2 (09:36→21:20)
[2017-10-01] MEDS ORDERED: dilTIAZem HCL 30 MG TABLET (FP) PO SCH (12:00)
[2017-10-01] MEDS ORDERED: ATROPINE SO4 0.4 MG/1 ML VIAL IVPUSH PRN (12:09)
[2017-10-01] MEDS ORDERED: ENOXAPARIN NA (PORCINE) 80 MG/0.8 ML DISP.SYRIN SQ SCH (12:30)
--- NOTE | 2017-10-01 14:21 | EKG ---
Test Reason : Blood Pressure : / mmHG Vent. Rate : 156 BPM Atrial Rate : 081 BPM P-R Int : 000 ms QRS Dur : 080 ms QT Int : 272 ms P-R-T Axes : 052 027 -02 degrees QTc Int : 438 ms POOR DATA QUALITY, INTERPRETATION MAY BE ADVERSELY AFFECTED ATRIAL FIBRILLATION WITH RAPID VENTRICULAR RESPONSE NONSPECIFIC ST AND T WAVE ABNORMALITY ABNORMAL ECG Confirmed by MD KATELYN, PILAR ([id number]) on 10/01/2017 2:20:31 PM Referred By: Confirmed By:PILAR ZEPEDA MD
--- NOTE | 2017-10-01 14:44 | PN ---
Progress Note, Physician Chief Complaint: Rapid Afib-fairly asymptomatic with mild dyspnea and dizziness. On diltiazem drip had pauses of 4 sec. She converted to NSR. Still has epigastric pain which improves when sitting up. History of Present Illness: 57 y/o female with no significant past medical history admitted with constant chest pain which started yesterday, constant, pressure type, with radiation to the shoulders. Pain increases with breathing, and when she touch her lower part of sternum, pain also increases when she leans forward. No diaphoresis, palpitations, dizziness, lightheadedness. Denies othopnea, paroxysmal dyspnea. ECG was normal. Pain got better after getting morphine in ED She has minimally elevated TP-I and elevated DDimer - Current Medication List Current Medications: Active Medications Acetaminophen (Tylenol -) 650 mg PO Q6H PRN PRN Reason: PAIN LEVEL 1-5 Last Admin: 09/30/17 17:11 Dose: 650 mg Atropine Sulfate (Atropine Injection -) 0.4 mg IVPUSH ONCE PRN PRN Reason: ASTHMA Enoxaparin Sodium (Lovenox -) 67 mg SQ ONCE [facility] Last Admin: 10/01/17 14:26 Dose: Not Given Famotidine/Sodium Chloride (Pepcid 20 Mg Premixed Ivpb -) 20 mg in 50 mls @ 100 mls/hr IVPB BID [facility] Last Admin: 10/01/17 09:36 Dose: 100 mls/hr CEFTRIAXONE 1 G/50 ML PREMIX (Ceftriaxone 1 Gm-D5w Bag) 50 mls @ 100 mls/hr IVPB DAILY [facility] Last Admin: 10/01/17 09:36 Dose: 100 mls/hr Metronidazole (Flagyl 500mg Premixed Ivpb -) 500 mg in 100 mls @ 100 mls/hr IVPB Q8H-IV GWYN Last Admin: 10/01/17 09:36 Dose: 100 mls/hr Dextrose/Sodium Chloride (D5-Ns -) 1,000 mls @ 100 mls/hr IV ASDIR [facility] Last Admin: 10/01/17 01:10 Dose: 100 mls/hr Diltiazem HCl 125 mg/ Dextrose 125 mls @ 5 mls/hr IVPB TITR GWYN; 5 MG/HR PRN Reason: Protocol Last Titration: 10/01/17 11:00 Dose: 15 mg/hr, 15 mls/hr Morphine Sulfate (Morphine Injection -) 1 mg IM Q6H PRN PRN Reason: PAIN LEVEL 6-10 Last Admin: 09/30/17 11:37 Dose: 1 mg Promethazine HCl (Phenergan Injection -) 12.5 mg IVPB Q6H PRN PRN Reason: NAUSEA AND/OR VOMITING Last Admin: 09/30/17 17:34 Dose: 12.5 mg - Objective Vital Signs: Vital Signs Temperature 98.9 F 10/01/17 06:00 Pulse Rate 170 H 10/01/17 11:00 Respiratory Rate 10/01/17 08:26 Blood Pressure 106/74 10/01/17 11:00 O2 Sat by Pulse Oximetry (%) 94 L 09/30/17 20:16 Constitutional: Yes: Well Nourished, No Distress, Calm Eyes: Yes: Conjunctiva Clear, EOM Intact HENT: Yes: Atraumatic, Normocephalic Neck: Yes: Supple, Trachea Midline Cardiovascular: Yes: Regular Rate and Rhythm Respiratory: Yes: Regular, CTA Bilaterally Gastrointestinal: Yes: Normal Bowel Sounds, Soft Edema: No Peripheral Pulses WNL: Yes Labs: CBC, BMP 10/01/17 06:20 10/01/17 06:20 INR, PTT INR 1.10 (0.82-1.09) 09/30/17 04:29 - ....Imaging Cat Scan: Report Reviewed Problem List - Problems (1) Chest pain Code(s): R07.9 - CHEST PAIN, UNSPECIFIED Qualifiers: Chest pain type: unspecified Qualified Code(s): R07.9 - Chest pain, unspecified (2) Afib Code(s): I48.91 - UNSPECIFIED ATRIAL FIBRILLATION Assessment/Plan 57 F with reporducible CP improved when sitting with mildly elevated TP-I and Ddimer level, leukocytosis. SHe had transient rapid afib with tachybrady and converted to NSR. CT chest shows pericardial effusion, possible PNA 1. Clinical picture consistent with pericarditis. -Check CRP and ESR -Correct hypokalemia -Add Colchecine 0.6 bid -Add Ibuprofen 600mg TID -Echocardiogram to better assess LV function and effusion -No need for stress test. Minimal TP-i elevation seen with pericardial inflammation. 2. Transient Afib with tachy-bethany now converted to NSR likely from infection/pericarditis -systemic AC is not needed and possibly contraindicated. Low CHADS-VAsc score and brief duration of AF also. -If AF recurs can consider Amiodarone -DVT prophylaxis with LMWH or UFH is OK
[2017-10-01] MEDS: IBUPROFEN 600 MG TABLET (FP) PO SCH ×2 (15:17→21:19)
[2017-10-01] MEDS: COLCHICINE 0.6 MG TABLET (FP) PO SCH (21:19)
[2017-10-02] MEDS: IBUPROFEN 600 MG TABLET (FP) PO SCH ×3 (05:48→22:59)
[2017-10-02] MEDS: ACETAMINOPHEN 325 MG TABLET (FP) PO PRN ×2 (06:54→20:43)
[2017-10-02 07:13] LABS: BASO % 0.4 % (0-2.0); EOS % 0.9 % (0-4.5); HEMATOCRIT 31.6 % (32.4-45.2); HEMOGLOBIN 10.7 GM/dL (10.7-15.3); LYMPH % 12.5 % (8-40); MCH 31.6 pg (25.7-33.7); MCHC 33.9 g/dl (32.0-36.0); MEAN PLT VOLUME 9.1 fl (7.5-11.1); MONO % 8.1 % (3.8-10.2); NEUT % 78.1 % (42.8-82.8); PLATELET COUNT 225 K/MM3 (134-434); RBC 3.39 M/mm3 (3.60-5.2); RDW 13.7 % (11.6-15.6); WHITE BLOOD COUNT 8.6 K/mm3 (4.0-10.0)
[2017-10-02 07:40] LABS: ALBUMIN 2.7 g/dl (3.4-5.0); ANION GAP 7 (8-16); BLOOD UREA NITROGEN 11 mg/dL (7-18); CALCIUM 7.6 mg/dL (8.5-10.1); CHLORIDE 111 mmol/L (98-107); CO2 24 mmol/L (21-32); GLUCOSE,RANDOM 124 mg/dL (74-106); MAGNESIUM 2.1 mg/dL (1.8-2.4); POTASSIUM 3.2 mmol/L (3.5-5.1); SODIUM 142 mmol/L (136-145)
[2017-10-02 07:45] LABS: ALK PHOS 88 U/L (45-117); BILIRUBIN,TOTAL 0.5 mg/dL (0.2-1.0); CREATININE 0.5 mg/dL (0.55-1.02); PHOSPHOROUS 1.7 mg/dL (2.5-4.9); SGOT/AST 11 U/L (15-37); SGPT/ALT 26 U/L (12-78); TOT PROT 5.8 g/dl (6.4-8.2)
--- NOTE | 2017-10-02 08:15 | PN ---
Teaching Attending Note Name of Resident: Brionna Hdz ATTENDING PHYSICIAN STATEMENT Time of evaluation: 10:05 AM I saw and evaluated the patient. I reviewed the resident's note and discussed the case with the resident. I agree with the resident's findings and plan as documented with exceptions below. SUBJECTIVE: Patient seen and examined. reported some nausea and headache earlier, no chest or abdominal pain, palpitations or dizziness. OBJECTIVE: Vital Signs Period Temp Pulse Resp BP Sys/Rao Pulse Ox Last 24 Hr 98.5 F-100.2 F 53-170 18-20 104-128/44-93 95-98 Intake & Output 09/29/17 09/30/17 10/01/17 10/02/17 23:59 23:59 23:59 23:59 Intake Total 1070 1290 1450 Balance 1070 1290 1450 Weight 146 lb 146 lb 3.2 oz general: sitting in bed in no acute distress CVS: S1S2 regular Chest: CTAB, no rales or wheezing, no sternal or epigastric tenderness today Abdomen: soft, NT, ND, positive bowel sounds, neg Briggs's sign, no voluntary or involuntary guarding or rigidity extremities: no edema Home Medication List Medication Instructions Recorded Confirmed Type NK [No Known Home Medication] 09/30/17 09/30/17 History Active Medications Generic Name Dose Route Start Last Admin Trade Name [id number] PRN Reason Stop Dose Admin Acetaminophen 650 mg 09/30/17 09:16 10/02/17 06:54 Tylenol - PO 650 mg Q6H PRN Administration PAIN LEVEL 1-5 Atropine Sulfate 0.4 mg 10/01/17 12:09 Atropine Injection - IVPUSH ONCE PRN ASTHMA Colchicine 0.6 mg 10/01/17 22:00 10/01/17 21:19 Colcrys - PO 0.6 mg BID GWYN Administration Enoxaparin Sodium 40 mg 10/02/17 10:00 Lovenox - SQ DAILY GWYN Famotidine/Sodium Chloride 20 mg in 50 mls @ 100 mls/hr 09/30/17 10:00 21:20 Pepcid 20 Mg Premixed Ivpb - IVPB 100 mls/hr BID GWYN Administration CEFTRIAXONE 1 G/50 ML PREMIX 50 mls @ 100 mls/hr 09/30/17 11:00 10/01/17 09: 36 Ceftriaxone 1 Gm-D5w Bag IVPB 100 mls/hr DAILY GWYN Administration Metronidazole 500 mg in 100 mls @ 100 mls/hr 09/30/17 11:00 10/02/17 02:55 Flagyl 500mg Premixed Ivpb - IVPB 100 mls/hr Q8H-IV GWYN Administration Dextrose/Sodium Chloride 1,000 mls @ 100 mls/hr 09/30/17 13:40 10/01/17 15:17 D5-Ns - IV 100 mls/hr ASDIR GWYN Administration Potassium Chloride 10 meq/ 105 mls @ 100 mls/hr 10/02/17 09:00 Sodium Chloride IVPB 10/02/17 10:59 Q60M GWYN Sodium Phosphate 30 mm/ Sodium 260 mls @ 62.5 mls/hr 10/02/17 08:13 Chloride IVPB 10/02/17 12:22 ONCE ONE Ibuprofen 600 mg 10/01/17 14:45 10/02/17 05:48 Motrin - PO 600 mg TID GWYN Administration Promethazine HCl 12.5 mg 09/30/17 09:12 09/30/17 17:34 Phenergan Injection - IVPB 12.5 mg Q6H PRN Administration NAUSEA AND/OR VOMITING Laboratory Results - last 24 hr 10/01/17 10/01/17 10/01/17 06:20 08:25 15:21 Sodium 143 Potassium 3.3 L Chloride 111 H Carbon Dioxide 23 Anion Gap 9 BUN 8 Creatinine 0.5 L Creat Clearance w eGFR > 60 Random Glucose 121 H Calcium 7.6 L Phosphorus Magnesium Total Bilirubin 0.5 AST 16 ALT 38 Alkaline Phosphatase 98 Troponin I 0.02 Cancelled C-Reactive Protein 12.8 H Total Protein 6.3 L Albumin 3.0 L TSH 0.67 Cancelled 10/02/17 06:45 Sodium 142 Potassium 3.2 L Chloride 111 H Carbon Dioxide 24 Anion Gap 7 L BUN 11 Creatinine 0.5 L Creat Clearance w eGFR > 60 Random Glucose 124 H Calcium 7.6 L Phosphorus 1.7 L Magnesium 2.1 Total Bilirubin 0.5 AST 11 L ALT 26 Alkaline Phosphatase 88 Troponin I C-Reactive Protein Total Protein 5.8 L Albumin 2.7 L TSH Microbiology 09/30/17 21:00 Blood - Peripheral Venous Blood Culture - Preliminary NO GROWTH OBTAINED AFTER 24 HOURS, INCUBATION TO CONTINUE FOR 4 DAYS. 09/30/17 20:40 Blood - Peripheral Venous Blood Culture - Preliminary NO GROWTH OBTAINED AFTER 24 HOURS, INCUBATION TO CONTINUE FOR 4 DAYS. ASSESSMENT AND PLAN: 57 yof admitted with chest/abdominal pain, now with rapid Afib with RVR. -New onset rapid Afib with RVR with pauses -Epigastric/Lower sternal pain, ?acute pericarditis/Pericardial effusion, vs symptomatic GB disease (less likely), PE ruled out -SIRS (fevers, tachycardia and elevated WBC on admission), resolved. Plan: reverted to NSR on 10/01. Cardiology input appreciated. Follow up 2D echo, hold off on anti-coagulation for now. ACS ruled out, TSH normal. CT PE neg. Showing Pericardial effusion, ?presenting symptoms from Acute pericarditis. Started on colchicine/Indomethacin, will monitor. Abdominal US noted, Surgery input appreciated. MRCP results noted, patient with nausea and vague abdominal symptoms.GI consult with Dr. Butler. D/c IV antibiotics and fluids. PO as tolerated. IV PPI, supportive treatment. Dispo planning pending 2D echo, GI and cardiology input. PLan discussed with patient and all questions answered.
[2017-10-02] MEDS ORDERED: REGADENOSON 0.4 MG/5 ML PRE-FILLED SYRINGE IVPUSH ONE (09:15)
[2017-10-02] MEDS ORDERED: SODIUM PHOSPHATE - 30 MM in SODIUM CHLORIDE 500 ML IVPB ONE (09:30)
[2017-10-02] MEDS: FAMOTIDINE 20 MG/50 ML IVPB 20 MG/50 ML MG IVPB SCH ×2 (10:09→21:59)
[2017-10-02] MEDS: CEFTRIAXONE 1 G/50 ML PREMIX 50 ML IVPB SCH (10:09)
[2017-10-02] MEDS: ENOXAPARIN NA (PORCINE) 40 MG/0.4 ML DISP.SYRIN SQ SCH (10:09)
[2017-10-02] MEDS: COLCHICINE 0.6 MG TABLET (FP) PO SCH ×2 (10:10→11:07)
[2017-10-02] MEDS ORDERED: NAPH,MB-DB/K PH,MBDB POWDER PACKET PO SCH (10:15)
[2017-10-02] MEDS ORDERED: DEXTROSE 5%-NORMAL SALINE 1,000 ML IV SCH (10:25)
--- NOTE | 2017-10-02 10:46 | EKG ---
Test Reason : Blood Pressure : / mmHG Vent. Rate : 072 BPM Atrial Rate : 227 BPM P-R Int : 000 ms QRS Dur : 084 ms QT Int : 346 ms P-R-T Axes : 000 033 000 degrees QTc Int : 378 ms ATRIAL FIBRILLATION NONSPECIFIC ST AND T WAVE ABNORMALITY ABNORMAL ECG WHEN COMPARED WITH ECG OF 01-OCT-2017 07:54, VENT. RATE HAS DECREASED BY 52 BPM Confirmed by JEISON ANN MD ([id number]) on 10/02/2017 10:46:46 AM Referred By: Confirmed By:JEISON ANN MD
--- NOTE | 2017-10-02 10:47 | EKG ---
Test Reason : Blood Pressure : / mmHG Vent. Rate : 124 BPM Atrial Rate : 097 BPM P-R Int : 000 ms QRS Dur : 084 ms QT Int : 314 ms P-R-T Axes : 000 021 -15 degrees QTc Int : 451 ms ATRIAL FIBRILLATION WITH RAPID VENTRICULAR RESPONSE WITH PREMATURE VENTRICULAR OR ABERRANTLY CONDUCTED COMPLEXES ABNORMAL ECG WHEN COMPARED WITH ECG OF 01-OCT-2017 07:47, NO SIGNIFICANT CHANGE WAS FOUND Confirmed by JEISON ANN MD ([id number]) on 10/02/2017 10:46:54 AM Referred By: Confirmed By:JEISON ANN MD
--- NOTE | 2017-10-02 10:48 | EKG ---
Test Reason : Blood Pressure : / mmHG Vent. Rate : 138 BPM Atrial Rate : 077 BPM P-R Int : 000 ms QRS Dur : 086 ms QT Int : 322 ms P-R-T Axes : 000 032 003 degrees QTc Int : 487 ms ATRIAL FIBRILLATION WITH RAPID VENTRICULAR RESPONSE WITH PREMATURE VENTRICULAR OR ABERRANTLY CONDUCTED COMPLEXES NONSPECIFIC ST ABNORMALITY ABNORMAL ECG WHEN COMPARED WITH ECG OF 01-OCT-2017 07:47, ATRIAL FIBRILLATION HAS REPLACED SINUS RHYTHM VENT. RATE HAS INCREASED Confirmed by JEISON ANN MD ([id number]) on 10/02/2017 10:47:21 AM Referred By: Confirmed By:JEISON ANN MD
--- NOTE | 2017-10-02 10:48 | EKG ---
Test Reason : Blood Pressure : / mmHG Vent. Rate : 093 BPM Atrial Rate : 093 BPM P-R Int : 150 ms QRS Dur : 094 ms QT Int : 296 ms P-R-T Axes : 048 025 017 degrees QTc Int : 368 ms SINUS RHYTHM WITH FREQUENT PREMATURE VENTRICULAR COMPLEXES IN A PATTERN OF BIGEMINY NONSPECIFIC T WAVE ABNORMALITY ABNORMAL ECG WHEN COMPARED WITH ECG OF 01-OCT-2017 07:37, SINUS RHYTHM HAS REPLACED ATRIAL FIBRILLATION VENT. RATE HAS DECREASED BY 63 BPM PREMATURE VENTRICULAR COMPLEXES ARE SEEN Confirmed by JEISON ANN MD ([id number]) on 10/02/2017 10:47:59 AM Referred By: Confirmed By:JEISON ANN MD
[2017-10-02] MEDS ORDERED: POTASSIUM PHOSPHATE 30 MM in SODIUM CHLORIDE 500 ML IVPB ONE (11:00)
--- NOTE | 2017-10-02 12:33 | CON.GI ---
Consult Consult Specialty:: GI Reason for Consultation:: Abnrmal imaging of the liver, epigastric pain - History of Present Illness History of Present Illness: Chart reviewed. Events noted. The patient's significant other and her nurse were interpreting. Per ED intake: 57-year-old female no medical history presents with chest discomfort. The patient was fine yesterday, went to bed and then woke up with reproducible midsternal chest pain and epigastric discomfort. States radiating to her throat and makes her feel short of breath. Reports that the pain radiates to the back. Reports nausea but denies vomiting. Denies fevers or chills. Does not think any particular foods were causing the symptoms. Subsequently, the patient was found to have small pericardial effusion and cholelithiasis with normal transaminases, ALP and bili. She developed atrial fibrillation with RVR and long poses while on diltiazem. The patient reports no prior history of GI/liver issues s/a hepatitis, jaundice , ulcers, gastritis, reflux, melena, hematochezia, hematemesis. Reports no significant weight loss in the past 12 months. Has non-contributory family history at the time of this encounter pt reports feeling nauseous - History Source History Provided By: Patient, Significant Other, Medical Record, Caregiver Limitations to Obtaining History: No Limitations - Alcohol/Substance Use Hx Alcohol Use: No - Smoking History Smoking history: Never smoked Have you smoked in the past 12 months: No Home Medications - Allergies Allergies/Adverse Reactions: Allergies Allergy/AdvReac Type Severity Reaction Status Date / Time No Known Allergies Allergy Verified 09/30/17 02:48 - Home Medications Home Medications: Ambulatory Orders NK [No Known Home Medication] 09/30/17 Family Disease History - Family Disease History Family History: Unremarkable Review of Systems Findings/Remarks: as per PPI, H&P Physical Exam-GI Vital Signs: Vital Signs Temperature 98.9 F 10/02/17 06:00 Pulse Rate 58 L 10/02/17 06:00 Respiratory Rate 20 10/02/17 06:00 Blood Pressure 104/58 10/02/17 06:00 O2 Sat by Pulse Oximetry (%) 98 10/01/17 21:00 Constitutional: Yes: Well Nourished Cardiovascular: Yes: Tachycardia, Pulse Irregular Respiratory: Yes: Regular Gastrointestinal Inspection: No: Distention ...Palpate: Yes: Soft, Other (nausea). No: Firm/Rigid, Guarding Edema: No Neurological: Yes: Alert, Oriented Labs: CBC, BMP 10/02/17 06:45 10/02/17 06:45 INR, PTT INR 1.10 (0.82-1.09) 09/30/17 04:29 Laboratory Tests 09/30/17 09/30/17 09/30/17 03:23 04:29 04:29 WBC 14.7 H RBC 4.00 Hgb 12.5 Hct 37.2 MCV 92.9 MCH 31.3 MCHC 33.7 RDW 13.5 Plt Count 264 MPV 8.8 Neutrophils % 92.2 H Lymphocytes % 3.5 L Monocytes % 4.0 Eosinophils % 0.0 Basophils % 0.3 ESR PT with INR INR PTT (Actin FS) D-Dimer Sodium 139 Potassium 3.3 L Chloride 104 Carbon Dioxide 23 Anion Gap 12 BUN 12 Creatinine 0.5 L Creat Clearance w eGFR > 60 Random Glucose 150 H Calcium 8.3 L Phosphorus Magnesium Total Bilirubin 0.4 AST 31 ALT 51 Alkaline Phosphatase 139 H Creatine Kinase 93 Troponin I 0.11 H C-Reactive Protein Total Protein 7.5 Albumin 3.8 Triglycerides Cholesterol Total LDL Cholesterol HDL Cholesterol Total Amylase Lipase TSH Urine Color Urine Appearance Urine pH Ur Specific [place] Urine Protein Urine Glucose (UA) Urine Ketones Urine Blood Urine Nitrite Urine Bilirubin Urine Urobilinogen Ur Leukocyte Esterase Urine WBC (Auto) Urine RBC (Auto) Ur Epithelial Cells Urine Mucus 09/30/17 09/30/17 09/30/17 04:29 09:05 09:05 WBC RBC Hgb Hct MCV MCH MCHC RDW Plt Count MPV Neutrophils % Lymphocytes % Monocytes % Eosinophils % Basophils % ESR PT with INR 12.40 H INR 1.10 PTT (Actin FS) 32.6 D-Dimer 602 H Sodium 140 Potassium 4.3 Chloride 108 H Carbon Dioxide 26 Anion Gap 6 L BUN 11 Creatinine 0.6 Creat Clearance w eGFR > 60 Random Glucose 109 H Calcium 8.1 L Phosphorus 3.5 Magnesium 2.1 Total Bilirubin 0.6 D AST 27 ALT 49 Alkaline Phosphatase 126 H Creatine Kinase Troponin I C-Reactive Protein Total Protein 6.8 Albumin 3.4 Triglycerides 51 Cholesterol 155 Total LDL Cholesterol 87 HDL Cholesterol 62 H Total Amylase Lipase TSH Urine Color Urine Appearance Urine pH Ur Specific [place] Urine Protein Urine Glucose (UA) Urine Ketones Urine Blood Urine Nitrite Urine Bilirubin Urine Urobilinogen Ur Leukocyte Esterase Urine WBC (Auto) Urine RBC (Auto) Ur Epithelial Cells Urine Mucus 09/30/17 09/30/17 10/01/17 09:05 09:30 06:20 WBC 9.8 D RBC 3.56 L Hgb 11.4 Hct 33.0 MCV 92.6 MCH 31.9 MCHC 34.4 RDW 13.8 Plt Count 223 MPV 9.1 Neutrophils % 77.2 Lymphocytes % 13.0 D Monocytes % 9.6 D Eosinophils % 0.1 D Basophils % 0.1 ESR PT with INR INR PTT (Actin FS) D-Dimer Sodium Potassium Chloride Carbon Dioxide Anion Gap BUN Creatinine Creat Clearance w eGFR Random Glucose Calcium Phosphorus Magnesium Total Bilirubin AST ALT Alkaline Phosphatase Creatine Kinase Troponin I 0.06 H C-Reactive Protein Total Protein Albumin Triglycerides Cholesterol Total LDL Cholesterol HDL Cholesterol Total Amylase 57 Lipase 72 L TSH Urine Color Yellow Urine Appearance Clear Urine pH 6.0 Ur Specific [place] 1.017 Urine Protein Negative Urine Glucose (UA) Negative Urine Ketones Negative Urine Blood 2+ H Urine Nitrite Negative Urine Bilirubin Negative Urine Urobilinogen Negative Ur Leukocyte Esterase Negative Urine WBC (Auto) 8 Urine RBC (Auto) 12 Ur Epithelial Cells Rare Urine Mucus Many 10/01/17 10/01/17 10/01/17 06:20 08:25 15:21 WBC RBC Hgb Hct MCV MCH MCHC RDW Plt Count MPV Neutrophils % Lymphocytes % Monocytes % Eosinophils % Basophils % ESR PT with INR INR PTT (Actin FS) D-Dimer Sodium 143 Potassium 3.3 L Chloride 111 H Carbon Dioxide 23 Anion Gap 9 BUN 8 Creatinine 0.5 L Creat Clearance w eGFR > 60 Random Glucose 121 H Calcium 7.6 L Phosphorus Magnesium Total Bilirubin 0.5 AST 16 ALT 38 Alkaline Phosphatase 98 Creatine Kinase Troponin I 0.02 Cancelled C-Reactive Protein 12.8 H Total Protein 6.3 L Albumin 3.0 L Triglycerides Cholesterol Total LDL Cholesterol HDL Cholesterol Total Amylase Lipase TSH 0.67 Cancelled Urine Color Urine Appearance Urine pH Ur Specific [place] Urine Protein Urine Glucose (UA) Urine Ketones Urine Blood Urine Nitrite Urine Bilirubin Urine Urobilinogen Ur Leukocyte Esterase Urine WBC (Auto) Urine RBC (Auto) Ur Epithelial Cells Urine Mucus 10/02/17 10/02/17 10/02/17 06:45 06:45 06:45 WBC 8.6 RBC 3.39 L Hgb 10.7 Hct 31.6 L MCV 93.0 MCH 31.6 MCHC 33.9 RDW 13.7 Plt Count 225 MPV 9.1 Neutrophils % 78.1 Lymphocytes % 12.5 Monocytes % 8.1 Eosinophils % 0.9 D Basophils % 0.4 D ESR 51 H PT with INR INR PTT (Actin FS) D-Dimer Sodium 142 Potassium 3.2 L Chloride 111 H Carbon Dioxide 24 Anion Gap 7 L BUN 11 Creatinine 0.5 L Creat Clearance w eGFR > 60 Random Glucose 124 H Calcium 7.6 L Phosphorus 1.7 L Magnesium 2.1 Total Bilirubin 0.5 AST 11 L ALT 26 Alkaline Phosphatase 88 Creatine Kinase Troponin I C-Reactive Protein Total Protein 5.8 L Albumin 2.7 L Triglycerides Cholesterol Total LDL Cholesterol HDL Cholesterol Total Amylase Lipase TSH Urine Color Urine Appearance Urine pH Ur Specific [place] Urine Protein Urine Glucose (UA) Urine Ketones Urine Blood Urine Nitrite Urine Bilirubin Urine Urobilinogen Ur Leukocyte Esterase Urine WBC (Auto) Urine RBC (Auto) Ur Epithelial Cells Urine Mucus Imaging - Results Chest X-ray: Report Reviewed Cat Scan: Report Reviewed Ultrasound: Report Reviewed MRI: Report Reviewed Problem List - Problems (1) Pericardial effusion Code(s): I31.3 - PERICARDIAL EFFUSION (NONINFLAMMATORY) (2) Cholelithiasis Code(s): K80.20 - CALCULUS OF GALLBLADDER W/O CHOLECYSTITIS W/O OBSTRUCTION (3) Afib Code(s): I48.91 - UNSPECIFIED ATRIAL FIBRILLATION (4) Chest pain Code(s): R07.9 - CHEST PAIN, UNSPECIFIED Qualifiers: Chest pain type: unspecified Qualified Code(s): R07.9 - Chest pain, unspecified Assessment/Plan symptomatic A. fib with RVR and long pauses. Pericardial effusion ? etiology viral, autoimmune Sternal/epigastric pain is likely related to pericardial effusion/a. fib. Doubt GI/biliary etiology at this time. Cholelithiasis (seen by sx). Negative Briggs's/abdominal exam and normal CBD with normal transaminases, bili, ALP CRP, ESR, DANGELO, viral ab will follow
[2017-10-02] MEDS: PROMETHAZINE HCL 25 MG/1 ML VIAL IVPB PRN (12:50)
[2017-10-02] MEDS ORDERED: morphine SULFATE 4 MG/ML VIAL IVPUSH PRN (13:25)
[2017-10-02] MEDS: POTASSIUM CHLORIDE 10 MEQ in SODIUM CHLORIDE 100 ML IVPB SCH ×2 (13:44→18:28)
[2017-10-02] MEDS: DILTIAZEM INJECTION 125 MG in DEXTROSE 5%-WATER - 100 ML IVPB SCH ×2 (14:36→22:37)
--- NOTE | 2017-10-02 15:22 | PN ---
Progress Note, Physician Chief Complaint: Chest pain History of Present Illness: 57-year-old female, admitted with chest pains, rapid atrial fibrillation, likely pericarditis. - Current Medication List Current Medications: Active Medications Acetaminophen (Tylenol -) 650 mg PO Q6H PRN PRN Reason: PAIN LEVEL 1-5 Last Admin: 10/02/17 06:54 Dose: 650 mg Atropine Sulfate (Atropine Injection -) 0.4 mg IVPUSH ONCE PRN PRN Reason: ASTHMA Colchicine (Colcrys -) 0.[address] [facility] Last Admin: 10/02/17 11:07 Dose: Not Given Enoxaparin Sodium (Lovenox -) [address] [facility] Last Admin: 10/02/17 10:09 Dose: 40 mg Famotidine/Sodium Chloride (Pepcid 20 Mg Premixed Ivpb -) 20 mg in 50 mls @ 100 mls/hr IVPB BID [facility] Last Admin: 10/02/17 10:09 Dose: 100 mls/hr Sodium Phosphate 30 mm/ Sodium (Chloride) 510 mls @ 85 mls/hr IVPB ONCE ONE Stop: 10/02/17 15:29 Last Admin: 10/02/17 12:54 Dose: 85 mls/hr Diltiazem HCl 125 mg/ Dextrose 125 mls @ 5 mls/hr IVPB TITR [facility]; 5 MG/HR PRN Reason: Protocol Last Titration: 10/02/17 14:43 Dose: 10 mg/hr, 10 mls/hr Ibuprofen (Motrin -) [address] [facility] Last Admin: 10/02/17 13:54 Dose: 600 mg Morphine Sulfate (Morphine Sulfate) 1 mg IVPUSH Q4H PRN PRN Reason: PAIN LEVEL 6-10 Promethazine HCl (Phenergan Injection -) 12.5 mg IVPB Q6H PRN PRN Reason: NAUSEA AND/OR VOMITING Last Admin: 10/02/17 12:50 Dose: 12.5 mg - Objective Vital Signs: Vital Signs Temperature 98.9 F 10/02/17 06:00 Pulse Rate 163 H 10/02/17 14:43 Respiratory Rate 20 10/02/17 06:00 Blood Pressure 133/61 10/02/17 14:43 O2 Sat by Pulse Oximetry (%) 98 10/01/17 21:00 Constitutional: Yes: Well Nourished, No Distress, Calm Eyes: Yes: WNL, Conjunctiva Clear, EOM Intact HENT: Yes: WNL, Atraumatic, Normocephalic Neck: Yes: WNL, Supple, Trachea Midline Cardiovascular: Yes: Tachycardia, Pulse Irregular, S1, S2 Respiratory: Yes: WNL, Regular, CTA Bilaterally Gastrointestinal: Yes: WNL, Normal Bowel Sounds, Soft ...Rectal Exam: Yes: Deferred Musculoskeletal: Yes: WNL Extremities: Yes: WNL Edema: No Peripheral Pulses WNL: Yes Neurological: Yes: WNL, Alert, Oriented Labs: CBC, BMP 10/02/17 06:45 10/02/17 06:45 INR, PTT INR 1.10 (0.82-1.09) 09/30/17 04:29 Assessment/Plan 57-year-old female presenting with chest pains, noted to be in rapid atrial fibrillation. Most likely has pericarditis. Had a 5 second pause prior to converted to sinus rhythm. She is back in rapid atrial fibrillation. The echocardiogram showed that both ventricles are functioning normally. There is moderate mitral and tricuspid regurgitation and small pericardial effusion. Would not anticoagulate in the setting of acute pericarditis. Restart Cardizem drip. Up titrate the rate control. Acceptable ventricular rates up to 115, in this setting. Continue colchicine and current regimen. The patient is stable, and minimally symptomatic.
--- NOTE | 2017-10-02 16:45 | PN ---
Physical Exam: SUBJECTIVE: Patient seen and examined. Pt c/o headache and nausea. Pt denies abdominal pain, chest pain, sob, fever, chills. Pt went back into rapid afib this afternoon, was placed on Cardizem drip, and converted back to NSR. Pt asymptomatic during episode. Pt had some pauses in heartrate overnight on surveillance system monitor. OBJECTIVE: Vital Signs Period Temp Pulse Resp BP Sys/Rao Pulse Ox Last 24 Hr 98.6 F-99.0 F 53-175 20-20 104-133/44-84 96-98 GENERAL: The patient is awake, alert, and fully oriented, in no acute distress. LUNGS: Breath sounds equal, clear to auscultation bilaterally, no wheezes, no crackles, no accessory muscle use. HEART: irregularly irregular, +S1/S2, no murmur appreciated. ABDOMEN: Soft, nontender, nondistended, normoactive bowel sounds, no guarding. (-) Briggs's sign. EXTREMITIES: Warm, well-perfused, no edema. PSYCH: Normal mood, normal affect. SKIN: Warm, dry, normal turgor, no rashes or lesions noted Laboratory Results - last 24 hr 10/02/17 10/02/17 10/02/17 06:45 06:45 06:45 WBC 8.6 RBC 3.39 L Hgb 10.7 Hct 31.6 L MCV 93.0 MCH 31.6 MCHC 33.9 RDW 13.7 Plt Count 225 MPV 9.1 Neutrophils % 78.1 Lymphocytes % 12.5 Monocytes % 8.1 Eosinophils % 0.9 D Basophils % 0.4 D ESR 51 H Sodium 142 Potassium 3.2 L Chloride 111 H Carbon Dioxide 24 Anion Gap 7 L BUN 11 Creatinine 0.5 L Creat Clearance w eGFR > 60 Random Glucose 124 H Calcium 7.6 L Phosphorus 1.7 L Magnesium 2.1 Total Bilirubin 0.5 AST 11 L ALT 26 Alkaline Phosphatase 88 Total Protein 5.8 L Albumin 2.7 L Active Medications Generic Name Dose Route Start Last Admin Trade Name Freq PRN Reason Stop Dose Admin Acetaminophen 650 mg 09/30/17 09:16 10/02/17 06:54 Tylenol - PO 650 mg Q6H PRN Administration PAIN LEVEL 1-5 Atropine Sulfate 0.4 mg 10/01/17 12:09 Atropine Injection - IVPUSH ONCE PRN ASTHMA Colchicine 0.6 mg 10/02/17 10:30 10/02/17 11:07 Colcrys - PO Not Given DAILY [facility] Enoxaparin Sodium 40 mg 10/02/17 10:00 10/02/17 10:09 Lovenox - SQ 40 mg DAILY [facility] Administration Famotidine/Sodium Chloride 20 mg in 50 mls @ 100 mls/hr 09/30/17 10:00 10:09 Pepcid 20 Mg Premixed Ivpb - IVPB 100 mls/hr BID [facility] Administration Diltiazem HCl 125 mg/ Dextrose 125 mls @ 5 mls/hr 10/02/17 13:30 10/02/17 14: 43 IVPB 10 mg/hr TITR [facility] 10 mls/hr Protocol Titration 5 MG/HR Ibuprofen 600 mg 10/01/17 14:45 10/02/17 13:54 Motrin - PO 600 mg TID [facility] Administration Morphine Sulfate 1 mg 10/02/17 13:25 Morphine Sulfate IVPUSH Q4H PRN PAIN LEVEL 6-10 Promethazine HCl 12.5 mg 09/30/17 09:12 10/02/17 12:50 Phenergan Injection - IVPB 12.5 mg Q6H PRN Administration NAUSEA AND/OR VOMITING IMAGIN09/30/17 MRCP -> cholelithiasis sans evidence of cholecystitis. Nonspecific mild periportal edema 2/2 overhydration or early inflammatory process (likely cholecystitis or hepatitis). Significant bhavani basilar atelectatic changes, underlying infiltrate cannot be ruled out. Nonspecific area of subcutaneous edema in anterolateral Left abdomen, could be post-traumatic vs 2/2 underlying infection. 09/30/17 CXR -> basilar infiltrate may be present on Left. Some increased central markings. 09/30/17 Ab US -> mild fatty infiltrate of liver. Small gallstones in neck of gallbladder, with largest measuring 1.1cm, borderline thickening of gallbladder wall sans evidence of pericholecystic free fluid. (+) sono Briggs's sign. 09/30/17 CXR 8pm -> may be some mild atelectatic changes at bases. 10/01/17 CTA -> no PE. Mild bibasilar atelectatic changes and probably infiltrates with minimal bhavani pleural effusion. Pericardial effusion of 1.5cm width noted along Left inferior margin. 10/02/17 Echo -> LVEF 65-70%. Left ventricle normal in size and systolic function. Right ventricle systolic function normal. No regional wall motion abnormalities. Moderate MR/TR. Small pericardial effusion, < 1cm. ASSESSMENT/PLAN: 57F with no significant PMH, presents with chest pain, found to have new onset afib. # new onset afib with RVR - CHADSVASc Score = 1 (for gender), anticoagulation not necessary - Cardizem being tapered down as pt is now converted to NSR - Lopressor 25mg BID added # chest pain - likely 2/2 pericarditis - Cardiology (Dr. Ray) recs appreciated: continue Colchicine and Ibuprofen # ?epigastric/RUQ pain - GI (Dr. Butler) recs appreciated: f/u bloodwork - antibiotics D/Sesar as cholecystitis unlikely based on MRCP read # electrolyte abnormalities - hypokalemia and hypophosphatemia repleted with potassium phosphate IVPB # FEN - Fluids: po - Electrolytes: continue to monitor - Nutrition: clear liquids # Prophylaxis - DVT ppx with Lovenox SQ - GI ppx with Famotidine Visit type - Emergency Visit Emergency Visit: Yes ED Registration Date: 09/30/17 Care time: The patient presented to the Emergency Department on the above date and was hospitalized for further evaluation of their emergent condition. - New Patient This patient is new to me today: Yes Date on this admission: 10/02/17 - Critical Care Critical Care patient: No
[2017-10-02] MEDS ORDERED: PT OWN MED DRAWER 7, Y5N ONE (17:12)
[2017-10-02] MEDS: NAPH,MB-DB/K PH,MBDB POWDER PACKET PO SCH (18:28)
[2017-10-02] MEDS: METOPROLOL TARTRATE 25 MG TABLET (FP) PO SCH (21:59)
[2017-10-03] MEDS: DILTIAZEM INJECTION 125 MG in DEXTROSE 5%-WATER - 100 ML IVPB SCH (04:00)
[2017-10-03] MEDS: NAPH,MB-DB/K PH,MBDB POWDER PACKET PO SCH (05:30)
[2017-10-03] MEDS: IBUPROFEN 600 MG TABLET (FP) PO SCH ×2 (05:31→14:02)
[2017-10-03 07:03] LABS: HEMATOCRIT 35.5 % (32.4-45.2); HEMOGLOBIN 12.3 GM/dL (10.7-15.3); MCH 32.1 pg (25.7-33.7); MCHC 34.7 g/dl (32.0-36.0); MEAN CELL VOLUME 92.3 fl (80-96); MEAN PLT VOLUME 9.1 fl (7.5-11.1); PLATELET COUNT 295 K/MM3 (134-434); RBC 3.84 M/mm3 (3.60-5.2); RDW 13.7 % (11.6-15.6); WHITE BLOOD COUNT 7.3 K/mm3 (4.0-10.0)
[2017-10-03 07:36] LABS: ALBUMIN 2.9 g/dl (3.4-5.0); ANION GAP 11 (8-16); BLOOD UREA NITROGEN 11 mg/dL (7-18); CALCIUM 8.6 mg/dL (8.5-10.1); CHLORIDE 111 mmol/L (98-107); CO2 22 mmol/L (21-32); MAGNESIUM 2.2 mg/dL (1.8-2.4); POTASSIUM 3.4 mmol/L (3.5-5.1); SODIUM 144 mmol/L (136-145)
[2017-10-03 07:42] LABS: ALK PHOS 93 U/L (45-117); BILIRUBIN,DIRECT < 0.2 mg/dL (0.0-0.2); BILIRUBIN,TOTAL 0.4 mg/dL (0.2-1.0); CREATININE 0.6 mg/dL (0.55-1.02); GLUCOSE,RANDOM 100 mg/dL (74-106); PHOSPHOROUS 3.2 mg/dL (2.5-4.9); SGOT/AST 13 U/L (15-37); SGPT/ALT 27 U/L (12-78); TOT PROT 6.7 g/dl (6.4-8.2)
[2017-10-03] MEDS ORDERED: POTASSIUM CHLORIDE ORAL LIQUID 20 MEQ/15 ML PO ONE (08:45)
--- NOTE | 2017-10-03 08:49 | PN ---
Physical Exam: SUBJECTIVE: Patient seen and examined. Pt back in afib last night ~9:30pm after walking to the bathroom, than broke ~10:40pm. Pt remained in sinus rhythm for the rest of the night. Pt had a couple 3 second pauses between 8pm and 11pm. Though pt endorses mild tenderness to palpation in epigastric region , pt reports feeling better. Pt tolerating clear liquid diet. Pt denies nausea , headache, chest pain, sob, fever, chills. OBJECTIVE: Vital Signs Period Temp Pulse Resp BP Sys/Rao Pulse Ox Last 24 Hr 98.1 F-99.5 F 56-179 18-20 98-133/54-91 96-96 GENERAL: The patient is awake, alert, and fully oriented, in no acute distress. LUNGS: Breath sounds equal, clear to auscultation bilaterally, no wheezes, no crackles, no accessory muscle use. HEART: RRR, +S1/S2, no murmur appreciated. ABDOMEN: mild tenderness to epigastric region. Soft, nondistended, normoactive bowel sounds, no guarding. EXTREMITIES: Warm, well-perfused, no edema. PSYCH: Normal mood, normal affect. SKIN: Warm, dry, normal turgor, no rashes or lesions noted Laboratory Results - last 24 hr 10/02/17 10/02/17 10/03/17 06:45 06:45 06:30 WBC 8.6 RBC 3.39 L Hgb 10.7 Hct 31.6 L MCV 93.0 MCH 31.6 MCHC 33.9 RDW 13.7 Plt Count 225 MPV 9.1 Neutrophils % 78.1 Lymphocytes % 12.5 Monocytes % 8.1 Eosinophils % 0.9 D Basophils % 0.4 D ESR 51 H Sodium 144 Potassium 3.4 L Chloride 111 H Carbon Dioxide 22 Anion Gap 11 BUN 11 Creatinine 0.6 Creat Clearance w eGFR > 60 Random Glucose 100 Calcium 8.6 Phosphorus 3.2 Magnesium 2.2 Total Bilirubin 0.4 Direct Bilirubin < 0.2 AST 13 L ALT 27 Alkaline Phosphatase 93 C-Reactive Protein 9.5 H Total Protein 6.7 Albumin 2.9 L 10/03/17 06:30 WBC 7.3 RBC 3.84 Hgb 12.3 D Hct 35.5 MCV 92.3 MCH 32.1 MCHC 34.7 RDW 13.7 Plt Count 295 D MPV 9.1 Neutrophils % Lymphocytes % Monocytes % Eosinophils % Basophils % ESR Sodium Potassium Chloride Carbon Dioxide Anion Gap BUN Creatinine Creat Clearance w eGFR Random Glucose Calcium Phosphorus Magnesium Total Bilirubin Direct Bilirubin AST ALT Alkaline Phosphatase C-Reactive Protein Total Protein Albumin Active Medications Generic Name Dose Route Start Last Admin Trade Name Freq PRN Reason Stop Dose Admin Acetaminophen 650 mg 09/30/17 09:16 10/02/17 20:43 Tylenol - PO 650 mg Q6H PRN Administration PAIN LEVEL 1-5 Atropine Sulfate 0.4 mg 10/01/17 12:09 Atropine Injection - IVPUSH ONCE PRN ASTHMA Colchicine 0.6 mg 10/02/17 10:30 10/02/17 11:07 Colcrys - PO Not Given DAILY COUNTS INCLUDE 234 BEDS AT THE [facility] Docusate Sodium 300 mg 10/03/17 08:34 Colace - PO 10/03/17 08:35 ONCE ONE Enoxaparin Sodium 40 mg 10/02/17 10:00 10/02/17 10:09 Lovenox - SQ 40 mg DAILY [facility] Administration Famotidine/Sodium Chloride 20 mg in 50 mls @ 100 mls/hr 09/30/17 10:00 21:59 Pepcid 20 Mg Premixed Ivpb - IVPB 100 mls/hr BID [facility] Administration Diltiazem HCl 125 mg/ Dextrose 125 mls @ 5 mls/hr 10/02/17 13:30 10/03/17 04: 00 IVPB 10 mg/hr TITR [facility] 10 mls/hr Protocol Administration 5 MG/HR Ibuprofen 600 mg 10/01/17 14:45 10/03/17 05:31 Motrin - PO 600 mg TID [facility] Administration Metoprolol Tartrate 25 mg 10/02/17 22:00 10/02/17 21:59 Lopressor - PO 25 mg BID [facility] Administration Morphine Sulfate 1 mg 10/02/17 13:25 Morphine Sulfate IVPUSH Q4H PRN PAIN LEVEL 6-10 Potassium Chloride 40 meq 10/03/17 08:45 Potassium Chloride Oral Liquid PO 10/03/17 08:46 ONCE ONE Promethazine HCl 12.5 mg 09/30/17 09:12 10/02/17 12:50 Phenergan Injection - IVPB 12.5 mg Q6H PRN Administration NAUSEA AND/OR VOMITING ASSESSMENT/PLAN: 57F with no significant PMH, presents with chest pain, found to have new onset afib. # new onset afib with RVR - CHADSVASc Score = 1 (for gender), anticoagulation not necessary - Cardizem being tapered down as pt is now converted to NSR - continue Lopressor - continue cardiac monitoring # chest pain - likely 2/2 pericarditis - Cardiology (Dr. Ray) recs appreciated: continue Colchicine and Ibuprofen # ?epigastric/RUQ pain - GI (Dr. Butler) recs appreciated: f/u bloodwork - CRP elevated - no other s/s of infection, pt afebrile, no leukocytosis - antibiotics D/Sesar yesterday as cholecystitis unlikely based on MRCP read # hypokalemia - repleted with K-dur 40meq liquid # FEN - Fluids: po - Electrolytes: continue to monitor - Nutrition: clear liquids # Prophylaxis - DVT ppx with Lovenox SQ - GI ppx with Famotidine Visit type - Emergency Visit Emergency Visit: Yes ED Registration Date: 09/30/17 Care time: The patient presented to the Emergency Department on the above date and was hospitalized for further evaluation of their emergent condition. - New Patient This patient is new to me today: No - Critical Care Critical Care patient: No
[2017-10-03] MEDS ORDERED: DOCUSATE SODIUM 100 MG CAPSULE (FP) PO ONE (09:00)
[2017-10-03] MEDS: ENOXAPARIN NA (PORCINE) 40 MG/0.4 ML DISP.SYRIN SQ SCH (09:25)
[2017-10-03] MEDS: FAMOTIDINE 20 MG/50 ML IVPB 20 MG/50 ML MG IVPB SCH (09:25)
[2017-10-03] MEDS: METOPROLOL TARTRATE 25 MG TABLET (FP) PO SCH (09:26)
[2017-10-03] MEDS: COLCHICINE 0.6 MG TABLET (FP) PO SCH (09:26)
--- NOTE | 2017-10-03 11:43 | PN ---
Progress Note, Physician Chief Complaint: Feeling better No sob or chest pain Tele: sinus rhythm 50-60s with no significant pauses. No afib since prior to midnight History of Present Illness: 57 y/o female with no significant past medical history admitted with constant chest pain which started yesterday, constant, pressure type, with radiation to the shoulders. Pain increases with breathing, and when she touch her lower part of sternum, pain also increases when she leans forward. No diaphoresis, palpitations, dizziness, lightheadedness. Denies othopnea, paroxysmal dyspnea. ECG was normal. Pain got better after getting morphine in ED She has minimally elevated TP-I and elevated DDimer Echocardiogram normal lv systolic function, mod MR/TR, small pericardial effusion - Current Medication List Current Medications: Active Medications Acetaminophen (Tylenol -) 650 mg PO Q6H PRN PRN Reason: PAIN LEVEL 1-5 Last Admin: 10/02/17 20:43 Dose: 650 mg Atropine Sulfate (Atropine Injection -) 0.4 mg IVPUSH ONCE PRN PRN Reason: ASTHMA Colchicine (Colcrys -) 0.6 mg PO DAILY [facility] Last Admin: 10/03/17 09:26 Dose: 0.6 mg Enoxaparin Sodium (Lovenox -) 40 mg SQ DAILY [facility] Last Admin: 10/03/17 09:25 Dose: 40 mg Famotidine/Sodium Chloride (Pepcid 20 Mg Premixed Ivpb -) 20 mg in 50 mls @ 100 mls/hr IVPB BID [facility] Last Admin: 10/03/17 09:25 Dose: 100 mls/hr Diltiazem HCl 125 mg/ Dextrose 125 mls @ 5 mls/hr IVPB TITR [facility]; 5 MG/HR PRN Reason: Protocol Last Admin: 10/03/17 04:00 Dose: 10 mg/hr, 10 mls/hr Ibuprofen (Motrin -) 600 mg PO TID [facility] Last Admin: 10/03/17 05:31 Dose: 600 mg Metoprolol Tartrate (Lopressor -) 25 mg PO BID [facility] Last Admin: 10/03/17 09:26 Dose: 25 mg Morphine Sulfate (Morphine Sulfate) 1 mg IVPUSH Q4H PRN PRN Reason: PAIN LEVEL 6-10 Promethazine HCl (Phenergan Injection -) 12.5 mg IVPB Q6H PRN PRN Reason: NAUSEA AND/OR VOMITING Last Admin: 10/02/17 12:50 Dose: 12.5 mg - Objective Vital Signs: Vital Signs Temperature 99.0 F 10/03/17 07:40 Pulse Rate 64 10/03/17 07:40 Respiratory Rate 18 10/03/17 07:46 Blood Pressure 100/55 10/03/17 07:40 O2 Sat by Pulse Oximetry (%) 96 10/03/17 07:46 Constitutional: Yes: No Distress Neck: Yes: WNL Cardiovascular: Yes: Regular Rate and Rhythm, S1, S2. No: JVD, Murmur Respiratory: Yes: CTA Bilaterally Gastrointestinal: Yes: Normal Bowel Sounds, Soft Edema: No Labs: CBC, BMP 10/03/17 06:30 10/03/17 06:30 INR, PTT INR 1.10 (0.82-1.09) 09/30/17 04:29 Problem List - Problems (1) Afib Code(s): I48.91 - UNSPECIFIED ATRIAL FIBRILLATION (2) Pericardial effusion Code(s): I31.3 - PERICARDIAL EFFUSION (NONINFLAMMATORY) Assessment/Plan 57 y/o female with no significant past medical history admitted with constant chest pain has minimally elevated TP-I and elevated DDimer Elevated CRP Small pericardial effusion Transient afib 1) Pericarditis Symptoms improved Would continue NSAIDs and colchicine regimen 2) Afib In sinus since last night Continue low dose metoprolol and hold diltiazem drip. No AC given transient afib likely in setting of pericarditis and with low CHADS VASC score and pericardial effusion present Replete K as needed
[2017-10-03] MEDS ORDERED: POLYETHYLENE GLYCOL 3350 119 GM BTL PO ONE (12:54)
[2017-10-03 14:30] VITALS: PULSE 55
--- NOTE | 2017-10-03 15:05 | PN ---
Teaching Attending Note Name of Resident: Brionna Hdz ATTENDING PHYSICIAN STATEMENT I saw and evaluated the patient. I reviewed the resident's note and discussed the case with the resident. I agree with the resident's findings and plan as documented. SUBJECTIVE:c/o epigastric pain. not related to eating or position. denies CP, SOB, fever, chills, N/V/C/D was being discharged in the evening and developed afib with RVR at 180 OBJECTIVE: Last Vital Signs Temp Pulse Resp BP Pulse Ox 97.4 F L 55 L 18 139/79 96 10/03/17 14:29 10/03/17 14:29 10/03/17 14:29 10/03/17 14:29 10/03/17 07:46 General NAD CV S1 S2 RRR no murmur/rub/gallop Lungs CTA B/L No wheezing/rales/rhonchi ASSESSMENT AND PLAN: 57F with no significant PMH, presents with chest pain, found to have new onset afib and have pericarditis with effusion 1. AFib with RVR- liekly induced from pericarditis. was converted to NSR last evening but then developed RVR and placed back on cardizem ggt. rate is now back in NSR. will turn off cardizem ggt and monitor. if needed will increase lopressor. [id number] 1. would benefit from ASA therapy however would hold in the setting of acute pericardiits 2. Acute pericarditis with pericardial effusion- symptoms improved. does not have any chest pain. no rub appreciated on exam. on IBU and colchicine. would continue for now. will need to repeat echo in the future to evaluate if effusion resolved. cardio on board 3. Epigastric pain- possible referred pain from pericarditis. u/s and MRCP done showing some gallstones but normal CBD. no transminitis suggestive of cholestasis. watchful waiting at this tie 4. hypophosphatemia- resolved 5. SIRS-liekly due to percarditis. no indication for abx at this time 6. DVT ppx- lovenox 7. d/c planning in the next 24H if HR remains controlled.
--- NOTE | 2017-10-03 16:53 | DS ---
Physical Exam: SUBJECTIVE: Patient seen and examined. Pt remained in sinus rhythm for the rest of the day. Cardizem drip D/Sesar at 1:30pm. Pt denies epigastric pain this afternoon. Pt feels ready to go home. Pt denies nausea, headache, chest pain, sob, fever, chills. OBJECTIVE: Vital Signs Period Temp Pulse Resp BP Sys/Rao Pulse Ox Last 24 Hr 97.4 F-99.5 F 55-179 18-20 98-139/54-80 96-96 PHYSICAL EXAM GENERAL: The patient is awake, alert, and fully oriented, in no acute distress. LUNGS: Breath sounds equal, clear to auscultation bilaterally, no wheezes, no crackles, no accessory muscle use. HEART: RRR, +S1/S2, no murmur appreciated. ABDOMEN: mild tenderness to epigastric region. Soft, nondistended, normoactive bowel sounds, no guarding. EXTREMITIES: Warm, well-perfused, no edema. PSYCH: Normal mood, normal affect. SKIN: Warm, dry, normal turgor, no rashes or lesions noted LABS Laboratory Results - last 24 hr 10/01/17 10/03/17 10/03/17 11:52 06:30 06:30 WBC RBC Hgb Hct MCV MCH MCHC RDW Plt Count MPV ESR 59 H Sodium 144 Potassium 3.4 L Chloride 111 H Carbon Dioxide 22 Anion Gap 11 BUN 11 Creatinine 0.6 Creat Clearance w eGFR > 60 Random Glucose 100 Calcium 8.6 Phosphorus 3.2 Magnesium 2.2 Total Bilirubin 0.4 Direct Bilirubin < 0.2 AST 13 L ALT 27 Alkaline Phosphatase 93 C-Reactive Protein 9.5 H Total Protein 6.7 Albumin 2.9 L Stool Occult Blood Negative 10/03/17 06:30 WBC 7.3 RBC 3.84 Hgb 12.3 D Hct 35.5 MCV 92.3 MCH 32.1 MCHC 34.7 RDW 13.7 Plt Count 295 D MPV 9.1 ESR Sodium Potassium Chloride Carbon Dioxide Anion Gap BUN Creatinine Creat Clearance w eGFR Random Glucose Calcium Phosphorus Magnesium Total Bilirubin Direct Bilirubin AST ALT Alkaline Phosphatase C-Reactive Protein Total Protein Albumin Stool Occult Blood HOSPITAL COURSE: Date of Admission:09/30/17 Date of Discharge: 10/03/17 57F with no significant PMH, presents with chest pain, found to have new onset afib. Pt went in and out of rapid afib during this hospitalization. Pt was placed on Cardizem drip which was titrated as needed. Low dose Lopressor added to assist with rate control. Cardizem drip was D/Sesar at 1:30pm this afternoon and pt has remained in sinus rhythm since 10:40pm last night. CHADSVASc Score = 1 (for gender), anticoagulation is not indicated at this time. Chest pain likely 2/2 pericarditis related to small pericardial effusion and positional nature of original pain. Pt to continue Colchicine and Ibuprofen, taper per Cardiology (Dr. Grimes). Future repeat echo recommended to assess for resolution of pericardial effusion. Epigastric pain possibly 2/2 referred pericarditis pain, as MRCP revealed some gallstones but normal CBD. 09/30/17 MRCP -> cholelithiasis sans evidence of cholecystitis. Nonspecific mild periportal edema 2/2 overhydration or early inflammatory process (likely cholecystitis or hepatitis). Significant bhavani basilar atelectatic changes, underlying infiltrate cannot be ruled out. Nonspecific area of subcutaneous edema in anterolateral Left abdomen, could be post-traumatic vs 2/2 underlying infection. 09/30/17 CXR -> basilar infiltrate may be present on Left. Some increased central markings. 09/30/17 Ab US -> mild fatty infiltrate of liver. Small gallstones in neck of gallbladder, with largest measuring 1.1cm, borderline thickening of gallbladder wall sans evidence of pericholecystic free fluid. (+) sono Briggs's sign. 09/30/17 CXR 8pm -> may be some mild atelectatic changes at bases. 10/01/17 CTA -> no PE. Mild bibasilar atelectatic changes and probably infiltrates with minimal bhavani pleural effusion. Pericardial effusion of 1.5cm width noted along Left inferior margin. 10/02/17 Echo -> LVEF 65-70%. Left ventricle normal in size and systolic function. Right ventricle systolic function normal. No regional wall motion abnormalities. Moderate MR/TR. Small pericardial effusion, < 1cm. Microbiology 09/30/17 21:00 Blood - Peripheral Venous Blood Culture - Preliminary NO GROWTH OBTAINED AFTER 48 HOURS, INCUBATION TO CONTINUE FOR 3 DAYS. 09/30/17 20:40 Blood - Peripheral Venous Blood Culture - Preliminary NO GROWTH OBTAINED AFTER 48 HOURS, INCUBATION TO CONTINUE FOR 3 DAYS. Pt independent for ADLs. Pt stable for discharge home. Minutes to complete discharge: 40 Discharge Summary Reason For Visit: CHEST PAIN Current Active Problems Afib (Acute) Chest pain (Acute) Cholelithiasis (Acute) Pericardial effusion (Acute) Condition: Improved - Instructions Diet, Activity, Other Instructions: You were treated for chest pain (likely pericarditis related to a small amount of fluid around your heart) and you were found to have an arrhythmia of the heart called atrial fibrillation (afib). New Medications: - Take Colchicine daily for the pericarditis - Take Ibuprofen 3 times a day (every 8 hours) for the pericarditis. Taper down the Colchicine and Ibuprofen with your Account Developer. - Take Lopressor twice daily for your heart arrhythmia Increase physical activity as tolerated. Follow-ups: - schedule an appointment with a Primary Care Physician (contact information for our [facility]ident [facility] is attached under Dr. Moreland's name) in 1 week - schedule an appointment with your Account Developer (Dr. Jhaveri) in 1 week to taper pericarditis medications, and to schedule a follow-up Echocardiography test (to check that the small amount of fluid around your heart has resolved). Please return to the hospital immediately if you experience persistent or increased palpitations, dizziness, lightheadedness, chest pain, abdominal pain, difficulty breathing, or for any medical emergency. Referrals: Robinson Moreland MD [Staff Physician] - 1 Week William Jhaveri MD [Staff Physician] - 1 Week Disposition: HOME - Home Medications Comprehensive Discharge Medication List: Ambulatory Orders NK [No Known Home Medication] 09/30/17 This patient is new to me today: No Emergency Visit: Yes ED Registration Date: 09/30/17 Care time: The patient presented to the Emergency Department on the above date and was hospitalized for further evaluation of their emergent condition. Critical Care patient: No - Discharge Referral Referred to [facility] Med P.C.: No
[2017-10-03 19:00] VITALS: BP 130/83; TEMP 97.9
[2017-10-05 17:32] LABS: COXSACKIE A16 IGM Negative titer (Neg:<1:10); COXSACKIE A24 IGM Negative titer (Neg:<1:10); COXSACKIE A7 IGM Negative titer (Neg:<1:10); COXSACKIE A9 IGM Negative titer (Neg:<1:10)
== END 2017-10-03 20:20 | disposition home or self-care (01) | DRG 207 ==
LOC: SUPCPDRO 02:30 → JER 02:30 → JERBED 06:14 → UNDOADMIN 06:18 → J4S 08:18 → J4W 10-01 09:07
PROVIDERS: ADMIT Internal Medicine; ATTEND Internal Medicine
DX: I31.9 Disease of pericardium, unspecified (principal); I48.91 Unspecified atrial fibrillation; K80.50 Calculus of bile duct without cholangitis or cholecystitis without obstruction; R07.89 Other chest pain; D72.828 Other elevated white blood cell count; R50.9 Fever, unspecified; R00.0 Tachycardia, unspecified; I31.3 Pericardial effusion (noninflammatory); E87.6 Hypokalemia; E83.39 Other disorders of phosphorus metabolism; I08.1 Rheumatic disorders of both mitral and tricuspid valves; R65.10 Systemic inflammatory response syndrome (SIRS) of non-infectious origin without acute organ dysfunction
CPT/HCPCS: 36415; 71045-TC-FY; 71275-TC; 74181-TC; 76705-TC; 80048; 80053; 80061; 81003; 81015; 82150; 82248; 82272; 82550; 83690; 83721; 83735; 84100; 84443; 84484; 85025; 85027; 85379; 85610; 85651; 85730; 86038; 86140; 86658; 87040; 90688; 93005; 93010; 93306-TC; 99284-25; J1644

== ENCOUNTER 2017-10-12 09:40 | Inpatient (IN) | payer OTHER ==
--- NOTE | 2017-10-12 10:04 | PDOC ---
History of Present Illness - History of Present Illness Initial Comments: 10/12/17 10:03 57 yo F with h/o A-fib w/RvR ( not on anticoagulation) who reports epigastria abdominal pain. Pt. reports severe, sharp, unremitting, abdominal pain, with no identifiable triggers or alleviators, beginning 10/10/17. Asx. with multiple episodes of non bloody, biliary emesis. Denies back pain, or postprandial pain. Normal appetite and last bowel movement yesterday, with normal stools. Denies F/ C, CP,cough, diaphoresis, jaw/neck/shoulder pain, SOB, diarrhea, constipation, urinary complaints, sensory disturbance, weakness, lightheadedness. Pain not improved with omeprazole 40 mg PO QD. Denies NSAID use. Denies h/o endoscopy, GI pathology, or follow with GI. Denies h/o CAD/ND, abnormal stress test, stent placement, or CABG. Denies alcohol, tobacco, or illicit drug use. Recent [facility] admission ( 09/30-10/03/17) for pericarditis/A-fib <Alexander Simpson - Last Filed: 10/12/17 14:09> <Virgil Thorpe - Last Filed: 10/12/17 14:29> - General Chief Complaint: Pain Stated Complaint: REVISIT/ ABD PAIN Time Seen by Provider: 10/12/17 09:56 Past History - Past Medical History Anemia: No Cardiac Disorders: No COPD: No HTN: No Hypercholesterolemia: No - Suicide/Smoking/Psychosocial Hx Smoking History: Never smoked Have you smoked in the past 12 months: No Information on smoking cessation initiated: No Hx Alcohol Use: No Drug/Substance Use Hx: No Substance Use Type: None <Alexander Simpson - Last Filed: 10/12/17 14:09> <Virgil Thorpe - Last Filed: 10/12/17 14:29> - Past Medical History Allergies/Adverse Reactions: Allergies Allergy/AdvReac Type Severity Reaction Status Date / Time No Known Allergies Allergy Verified 10/12/17 09:45 Home Medications: Ambulatory Orders Colchicine [Colcrys -] 0.6 mg PO DAILY #30 tablet 10/03/17 Ibuprofen [Motrin -] 600 mg PO TID #60 tablet 10/03/17 Metoprolol Tartrate [Lopressor -] 25 mg PO BID #60 tablet 10/03/17 Omeprazole 40 mg PO DAILY 10/12/17 Review of Systems - Review of Systems Comments:: 10/12/17 10:04 GENERAL/CONSTITUTIONAL: No fever or chills. No weakness. HEAD, EYES, EARS, NOSE AND THROAT: No change in vision. No ear pain or discharge. No sore throat. CARDIOVASCULAR: No chest pain or shortness of breath RESPIRATORY: No cough, wheezing, or hemoptysis. GASTROINTESTINAL: + Abdominal pain and nausea and vomiting. No diarrhea or constipation. GENITOURINARY: No dysuria, frequency, or change in urination. MUSCULOSKELETAL: No joint or muscle swelling or pain. No neck or back pain. SKIN: No rash NEUROLOGIC: No headache, vertigo, loss of consciousness, or change in strength/ sensation. ENDOCRINE: No increased thirst. No abnormal weight change HEMATOLOGIC/LYMPHATIC: No anemia, easy bleeding, or history of blood clots. ALLERGIC/IMMUNOLOGIC: No hives or skin allergy. <Alexander Simposn - Last Filed: 10/12/17 14:09> *Physical Exam - Vital Signs Last Vital Signs Temp Pulse Resp BP Pulse Ox 97.9 F 79 19 119/70 100 10/12/17 09:42 10/12/17 09:42 10/12/17 09:42 10/12/17 09:42 10/12/17 09:42 - Physical Exam Comments: 10/12/17 10:04 GENERAL: Awake, alert, and fully oriented, in no acute distress HEAD: No signs of trauma, normocephalic, atraumatic EYES: PERRLA, EOMI, sclera anicteric, conjunctiva clear ENT: Hearing grossly normal, nares patent, oropharynx clear without exudates. Moist mucosa NECK: Normal ROM, supple, no lymphadenopathy, JVD, or masses LUNGS: No distress, speaks full sentences, clear to auscultation bilaterally HEART: Regular rate and rhythm, normal S1 and S2, no murmurs, rubs or gallops, peripheral pulses normal and equal bilaterally. ABDOMEN: RUQ ttp. Neg noriega sign. Neg [place] ttp. NBS, NDS. No guarding, no rigidity, no rebound. No masses. Neg suprapubic. Neg CVA ttp. EXTREMITIES : Normal inspection, Normal range of motion, no edema. No clubbing or cyanosis. SKIN: Warm, Dry, normal turgor, no rashes or lesions noted <Alexander Simpson - Last Filed: 10/12/17 14:09> - Vital Signs Last Vital Signs Temp Pulse Resp BP Pulse Ox 97.9 F 79 19 119/70 100 10/12/17 09:42 10/12/17 09:42 10/12/17 09:42 10/12/17 09:42 10/12/17 09:42 <Virgil Thorpe - Last Filed: 10/12/17 14:29> ED Treatment Course - LABORATORY CBC & Chemistry Diagram: 10/12/17 10:53 10/12/17 10:53 <Alexander Simpson - Last Filed: 10/12/17 14:09> - LABORATORY CBC & Chemistry Diagram: 10/12/17 10:53 10/12/17 10:53 - ADDITIONAL ORDERS Additional order review: Laboratory Results 10/12/17 10:53 Sodium 140 Potassium 4.4 Chloride 105 Carbon Dioxide 25 Anion Gap 10 BUN 12 Creatinine 0.7 Creat Clearance w eGFR > 60 Random Glucose 107 H Calcium 8.1 L Total Bilirubin 0.2 D AST 26 ALT 77 Alkaline Phosphatase 233 H Troponin I < 0.02 Total Protein 7.1 Albumin 3.2 L Lipase 51 L 10/12/17 10:53 RBC 3.46 L MCV 93.0 MCHC 34.1 RDW 14.0 MPV 8.5 Neutrophils % 80.9 Lymphocytes % 11.6 Monocytes % 6.8 Eosinophils % 0.3 Basophils % 0.4 - RADIOLOGY Radiology Studies Ordered: Category Date Time Status CXRPORT [CHEST X-RAY PORTABLE*] [RAD] Stat Radiology 10/12/17 10:07 Completed ABDOMEN US -LIMITED [US] Stat Ultrasound 10/12/17 10:44 Completed - Medications Given in the ED: ED Medications Discontinued Medications Generic Name Dose Route Start Last Admin Trade Name Freq PRN Reason Stop Dose Admin Al Hydroxide/Mg Hydroxide 30 ml 10/12/17 10:19 10/12/17 10:57 Mylanta Oral Suspension - PO 10/12/17 10:20 30 ml ONCE ONE Administration Sodium Chloride 1,000 mls @ 1,000 mls/hr 10/12/17 10:19 10/12/17 10:57 Normal Saline - IV 03/15/18 11:18 1,000 mls/hr ASDIR STA Administration Ranitidine HCl 150 mg 10/12/17 10:19 10/12/17 11:00 Zantac - PO 10/12/17 10:20 150 mg ONCE ONE Administration Sucralfate 2 gm 10/12/17 10:19 10/12/17 10:57 Carafate - PO 10/12/17 10:20 2 gm ONCE ONE Administration <Virgil Thorpe - Last Filed: 10/12/17 14:29> Medical Decision Making - Medical Decision Making 10/12/17 10:27 57 yo F with h/o A-fib w/RvR ( not on anticoagulation) who r reports severe, sharp, unremitting, abdominal pain, with no identifiable triggers or alleviators , beginning 10/10/17. Asx. with multiple episodes of non bloody, biliary emesis. No identifiable triggers or alleviators. Denies F/C, CP,cough, diaphoresis, jaw/neck/shoulder pain, SOB, diarrhea, constipation, urinary complaints, sensory disturbance, weakness, lightheadedness. Pain not improved with omeprazole 40 mg PO QD. Denies NSAID use. Denies GI or cardiac history. HDS. Physical exam with epigastria and RUQ ttp. Pain and N/V most likely 2/2 gastritis vs esophagitis. Will also consider cholelithiasis, choleycsytitis, pancreatitiis, colitis. ED Course: CBC, CMP, Lipase, Cardiac Pr EKG, CXR, RUQ U/S UA Maloox, Carafate, Pepcid, NS 10/12/17 12:28 Bedside Echo with moderate sized pleural effusion, and no evidence of tamponade. 10/12/17 12:29 Will consult cardiology. 10/12/17 12:54 top: Neg EKG: Low voltage QRS waves with absent NSR, absent GRACIE, or STD. Frequent PVC's and normal interval , and axis. 10/12/17 14:09 Pt. admitted to med/surg tele. 10/12/17 14:10 trop: neg Labs unremarkable <Alexander Simpson - Last Filed: 10/12/17 14:09> *DC/Admit/Observation/Transfer - Discharge Dispostion Admit: Yes - Attestations Physician Attestion: 10/12/17 10:04 I attest to the information provided in this note. <CalvinAlexander - Last Filed: 10/12/17 14:09> - Discharge Dispostion Admit: Yes <Virgil Thorpe - Last Filed: 10/12/17 14:29> Diagnosis at time of Disposition: Epigastric abdominal pain, Pericardial effusion - Referrals Referrals: Marito Caruso MD [Staff Physician] - - Patient Instructions Printed Discharge Instructions: DI for Epigastric Pain Additional Instructions: Please return to the emergency department with any new or worsening symptoms or concerns. Please return to ED if you experience crushing sternal chest pain, blood in stools, blood in vomit, or other alarming symptoms. Please follow up with your primary care physician within 72 hours. Please follow up with gastroenterology within one week, but preferably within 72 hours.
[2017-10-12] MEDS ORDERED: SUCRALFATE 1 GM TABLET (FP) PO ONE (10:19)
[2017-10-12] MEDS ORDERED: RANITIDINE HCL 150 MG TABLET (FP) PO ONE (10:19)
[2017-10-12] MEDS ORDERED: SODIUM CHLORIDE 1,000 ML IV STA (10:19)
[2017-10-12] MEDS ORDERED: MAG HYDROX/AL HYDROX/SIMETH 30 ML UNIT-DOSE CUP PO ONE (10:19)
--- NOTE | 2017-10-12 10:37 | PDOC ---
Attending Attestation - HPI HPI: 10/12/17 10:40 The patient is a 57 year old female with a significant PMH of A-fib with RvR ( not on anticoagulants), pericarditis, and pericardial effusion who presents to the emergency department with epigastric pain that began approximately 2 days ago. The patient describes the pain as severe, sharp, not associated with food intake, and no alleviating factors. The patient states the epigastric pain has not improved with omeprazole 40mg. The patient endorses mild SOB at night and multiple episodes of non-bloody, non-bilious emesis. The patient reports last bowel movement was yesterday. Denies any history of GI pathologies in the past. The patient denies changes in appetite, chest pain, back pain, headache and dizziness. Denies fever, chills, nausea, diarrhea and constipation. Denies dysuria, frequency, urgency and hematuria. Allergies: NKA Past surgical history: None reported. Social history: No reported alcohol, drug, or cigarette use. - Physicial Exam PE: 10/12/17 10:40 Vitals: Triage vital signs reviewed General Appearance: No acute distress, well nourished, well developed Head: Atraumatic Eyes: Pupils equal reactive round, extraocular movement intact Cardiac: Regular rate and rhythm, no murmurs, no rubs, no gallops Lungs: Clear to auscultation bilateral, good air movement bilaterally Abdomen: (+) Reproducible epigastric pain. Soft, nondistended, normal bowel sounds. Extremities: Full range of motion to all extremities, no cyanosis, clubbing, or edema Skin: Warm and dry, no rashes or lesions, no rash, no petechiae Neuro: AOX3; Cranial Nerves 2-12 grossly intact, Strength intact to all extremities, Sensation intact to all extremities, gait normal Psych: Normal mood, normal affect <Rina Hernandez - Last Filed: 10/12/17 11:00> - Resident Resident Name: Alexander Simpson - ED Attending Attestation I have performed the following: I have examined & evaluated the patient, The case was reviewed & discussed with the resident, I agree w/resident's findings & plan, Exceptions are as noted - Medical Decision Making 10/12/17 16:58 57 years old past medical history significant for recently diagnosed A. fib with RVR pericarditis with small pericardial effusion seen by cardiology in discharge patient presents with worsening epigastric pain. During her last admission they thought her epigastric discomfort was secondary to her pericarditis. Hemodynamically patient is stable her symptoms are persistent constant sharp there are no alleviating factors We'll perform a bedside echo labs EKG troponin observe and reassess Reevaluation moderate side pericardial effusion on bedside echo We'll observe overnight for cardiology consultation official echo and further management. <Virgil Thorpe - Last Filed: 10/12/17 17:41> Heart Score/ECG Review - ECG Impressions Comment:: 10/12/17 17:41 Low-voltage EKG no ST elevations or T-wave inversions. Sinus rhythm Interpreted by me. <Virgil Thorpe - Last Filed: 10/12/17 17:41>
[2017-10-12] MEDS ORDERED: SUCRALFATE 1 GM TABLET (FP) ONE (10:39)
[2017-10-12] MEDS ORDERED: FAMOTIDINE 20 MG/50 ML IVPB 20 MG/50 ML MG IVPB ONE (10:40)
[2017-10-12] MEDS ORDERED: MAG HYDROX/AL HYDROX/SIMETH 30 ML UNIT-DOSE CUP ONE (10:40)
[2017-10-12] MEDS ORDERED: RANITIDINE HCL 150 MG TABLET (FP) ONE (10:58)
[2017-10-12 11:06] LABS: BASO % 0.4 % (0-2.0); EOS % 0.3 % (0-4.5); HEMATOCRIT 32.2 % (32.4-45.2); LYMPH % 11.6 % (8-40); MCH 31.7 pg (25.7-33.7); MCHC 34.1 g/dl (32.0-36.0); MEAN PLT VOLUME 8.5 fl (7.5-11.1); MONO % 6.8 % (3.8-10.2); NEUT % 80.9 % (42.8-82.8); PLATELET COUNT 364 K/MM3 (134-434); RBC 3.46 M/mm3 (3.60-5.2); WHITE BLOOD COUNT 9.5 K/mm3 (4.0-10.0)
[2017-10-12 11:33] LABS: ALBUMIN 3.2 g/dl (3.4-5.0); ANION GAP 10 (8-16); BLOOD UREA NITROGEN 12 mg/dL (7-18); CALCIUM 8.1 mg/dL (8.5-10.1); CHLORIDE 105 mmol/L (98-107); CO2 25 mmol/L (21-32); GLUCOSE,RANDOM 107 mg/dL (74-106); POTASSIUM 4.4 mmol/L (3.5-5.1); SODIUM 140 mmol/L (136-145)
[2017-10-12 11:40] LABS: ALK PHOS 233 U/L (45-117); BILIRUBIN,TOTAL 0.2 mg/dL (0.2-1.0); CREATININE 0.7 mg/dL (0.55-1.02); LIPASE 51 U/L (73-393); SGOT/AST 26 U/L (15-37); SGPT/ALT 77 U/L (12-78); TOT PROT 7.1 g/dl (6.4-8.2)
--- NOTE | 2017-10-12 12:34 | EKG ---
Test Reason : Blood Pressure : / mmHG Vent. Rate : 072 BPM Atrial Rate : 072 BPM P-R Int : 146 ms QRS Dur : 080 ms QT Int : 342 ms P-R-T Axes : 033 024 031 degrees QTc Int : 374 ms SINUS RHYTHM WITH FREQUENT PREMATURE VENTRICULAR COMPLEXES LOW VOLTAGE QRS NONSPECIFIC T WAVE ABNORMALITY ABNORMAL ECG WHEN COMPARED WITH ECG OF 01-OCT-2017 07:55, SINUS RHYTHM HAS REPLACED ATRIAL FIBRILLATION ST NO LONGER ELEVATED IN LATERAL LEADS NONSPECIFIC T WAVE ABNORMALITY HAS REPLACED INVERTED T WAVES IN INFERIOR LEADS Confirmed by CARLOS ALBERTO CLARK MD ([id number]) on 10/12/2017 12:34:25 PM Referred By: Confirmed By:CARLOS ALBERTO CLARK MD
--- NOTE | 2017-10-12 16:17 | HP ---
CHIEF COMPLAINT: epigastric pain, nausea PCP: HISTORY OF PRESENT ILLNESS: Patient is a 57 year old woman with a significant past medical history of Atrial fib with RvR (not on anticoagulants), pericarditis, and pericardial effusion She presents to the ED today with epigastric pain and nausea. She states the epigastric pain is constant, pressure type with 10/10 in intensity. She is unable to eat, experiencing nausea. Epigastric pain does not radiate but worsens with eating and is not associated with diaphoresis, chest pain or palpitations. She denies lightheadedness. Denies fever, cough, chills. Patient reports one episode of vomiting in hospital after her blood work was done. Patient was recently here between 09/30/2017 and 10/03/2017 for chest pain and was found to have new onset afib. Patient was placed on a Cardizem drip and discharged on Lopressor for rate control She was not anticoagulated as her CHADSVASC score was low. Her chest pain was thought to be likely secondary to her pericarditis related to small pericardial effusion. Patient was discharged with colchicine and ibuprofen taper per cardiology. ER course was notable for: (1) abd u/s cholelithiasis with thick walled gallbladder, acute cholecystitis cannot be exclulded (2) ekg, NSR replaces afib on previous ekg (3) Recent Travel: PAST MEDICAL HISTORY: PAST SURGICAL HISTORY: Social History: Smoking: na Alcohol:na Drugs: na Family History: Allergies No Known Allergies Allergy (Verified 10/12/17 09:45) HOME MEDICATIONS: Home Medications Medication Instructions Recorded Colchicine [Colcrys -] 0.6 mg PO DAILY #30 tablet 10/03/17 Ibuprofen [Motrin -] 600 mg PO TID #60 tablet 10/03/17 Metoprolol Tartrate [Lopressor -] 25 mg PO BID #60 tablet 10/03/17 Omeprazole 40 mg PO DAILY 10/12/17 PHYSICAL EXAMINATION Vital Signs - 24 hr 10/12/17 10/12/17 09:42 16:09 Temperature 97.9 F 98.3 F Pulse Rate 79 Pulse Rate [ 69 Apical] Respiratory 19 20 Rate Blood Pressure 119/70 Blood Pressure 120/90 [Left Arm] O2 Sat by Pulse 100 98 Oximetry (%) GENERAL: Awake, alert, and fully oriented, in no acute distress. HEAD: Normal with no signs of trauma. EYES: Pupils equal, round and reactive to light, extraocular movements intact, sclera anicteric, conjunctiva clear. No lid lag. EARS, NOSE, THROAT: Ears normal, nares patent, oropharynx clear without exudates. Moist mucous membranes. NECK: Normal range of motion, supple without lymphadenopathy, JVD, or masses. LUNGS: Breath sounds equal, clear to auscultation bilaterally. No wheezes, and no crackles. No accessory muscle use. HEART: Regular rate and rhythm, normal S1 and S2 without murmur, rub or gallop. ABDOMEN: Soft, epigastric pain MUSCULOSKELETAL: Normal range of motion at all joints. No bony deformities or tenderness. No CVA tenderness. Laboratory Results - last 24 hr 10/12/17 10/12/17 10:53 10:53 WBC 9.5 D RBC 3.46 L Hgb 11.0 D Hct 32.2 L MCV 93.0 MCH 31.7 MCHC 34.1 RDW 14.0 Plt Count 364 D MPV 8.5 Neutrophils % 80.9 Lymphocytes % 11.6 Monocytes % 6.8 Eosinophils % 0.3 Basophils % 0.4 Sodium 140 Potassium 4.4 Chloride 105 Carbon Dioxide 25 Anion Gap 10 BUN 12 Creatinine 0.7 Creat Clearance w eGFR > 60 Random Glucose 107 H Calcium 8.1 L Total Bilirubin 0.2 D AST 26 ALT 77 Alkaline Phosphatase 233 H Troponin I < 0.02 Total Protein 7.1 Albumin 3.2 L Lipase 51 L ASSESSMENT/PLAN: Patient is a 57 year old woman with a significant past medical history of hypertension. She presents to the ED today with epigastric pain and nausea. She states the epigastric pain is constant, pressure type with 10/10 in intensity. She is unable to eat, experiencing nausea. Epigastric pain does not radiate but worsens with eating and is not associated with diaphoresis, chest pain or palpitations. She denies lightheadedness. Denies fever, cough, chills. Patient reports one episode of vomiting in hospital after her blood work was done. Patient was recently here between 09/30/2017 and 10/03/2017 for chest pain and was found to have new onset afib. Patient was placed on a Cardizem drip and discharged on Lopressor for rate control She was not anticoagulated as her CHADSVASC score was low. Her chest pain was thought to be likely secondary to her pericarditis related to small pericardial effusion. Patient was discharged with colchicine and ibuprofen taper per cardiology. Imagn09/30/17 MRCP - cholelithiasis, no evidence of cholecystitis. N 10/01/17 CTA - no PE. Mild bibasilar atelectatic changes and probably infiltrates with minimal bhavani pleural effusion. Pericardial effusion of 1.5cm width noted along Left inferior margin 10/02/17 Echo -LVEF 65-70%. Left ventricle normal in size and systolic function. Right ventricle systolic function normal. No regional wall motion abnormalities. Moderate MR/TR. Small pericardial effusion, < 1cm. 10/12/2017: abd u/s cholelithiasis with thick walled gallbladder, acute cholecystitis cannot be excluded 10/12/2017: Echo: larger pericardial effusion compared to last visit GI: Abdominal pain Ultrasound noted above NPO Hydration Protonix Monitor labs, vitals Cardiac monitoring Surgery and GI evaluation Cardiology: Chest pain/epigastric pain EKG show NSR Monitor on tele Metoprolol IV Trend trops Cardiology to see Prox. afib Not on any anticoags CTA on 10/01, negative for PE Pericardial effusion seen Echo as noted above Pericardial effusion Echo 10/12 shows increase in pericardial effusion F.E.N. Fluids: NS @ 100 Electrolytes: monitor Nutrition: NPO DVT: heparin GI: Protonix full code Hospitalist Screening - Colonoscopy Questionnaire Colonoscopy Questionnaire: Colonoscopy Questionnaire
[2017-10-12] MEDS ORDERED: PANTOPRAZOLE SODIUM 40 MG VIAL IVPUSH ONE (16:18)
[2017-10-12] MEDS ORDERED: SODIUM CHLORIDE 1,000 ML IV SCH (16:30)
[2017-10-12] MEDS ORDERED: PANTOPRAZOLE SODIUM 40 MG VIAL ONE (16:35)
[2017-10-12] MEDS ORDERED: METOPROLOL TARTRATE 5 MG/5 ML VIAL IVPUSH PRN (19:04)
[2017-10-12] MEDS ORDERED: PANTOPRAZOLE 40 MG TABLET (FP) PO SCH (19:15)
[2017-10-12 21:08] VITALS: BMI 27.9
[2017-10-12] MEDS ORDERED: METOPROLOL TARTRATE 25 MG TABLET (FP) PO SCH (22:00)
[2017-10-12] MEDS: MORPHINE SULFATE 10 MG/1 ML *VIAL IVPUSH PRN (22:59)
--- NOTE | 2017-10-13 08:11 | PN ---
Physical Exam: SUBJECTIVE: Patient seen and examined at the bedside. Still having epigastric pain and tenderness No nausea or vomiting overnight Pain relieved with Morphine OBJECTIVE: Patient sees Sofiya espinosa for cardiology, he has been consulted IVF decreased to NS @50cc/hr Incentive spirometer Vital Signs Period Temp Pulse Resp BP Sys/Rao Pulse Ox Last 24 Hr 97.9 F-99.8 F 69-79 19-20 119-140/70-90 96-100 GENERAL: Awake, alert, and fully oriented, in no acute distress. HEAD: Normal with no signs of trauma. EYES: Pupils equal, round and reactive to light, extraocular movements intact, sclera anicteric, conjunctiva clear. No lid lag. EARS, NOSE, THROAT: Ears normal, nares patent, oropharynx clear without exudates. Moist mucous membranes. NECK: Normal range of motion, supple without lymphadenopathy, JVD, or masses. LUNGS: Breath sounds equal, clear to auscultation bilaterally. No wheezes, and no crackles. No accessory muscle use. HEART: Regular rate and rhythm, normal S1 and S2 without murmur, rub or gallop. ABDOMEN: Soft, epigastric pain MUSCULOSKELETAL: Normal range of motion at all joints. No bony deformities or tenderness. No CVA tenderness. Laboratory Results - last 24 hr 10/12/17 10/12/17 10/12/17 10:53 10:53 22:00 WBC 9.5 D RBC 3.46 L Hgb 11.0 D Hct 32.2 L MCV 93.0 MCH 31.7 MCHC 34.1 RDW 14.0 Plt Count 364 D MPV 8.5 Neutrophils % 80.9 Lymphocytes % 11.6 Monocytes % 6.8 Eosinophils % 0.3 Basophils % 0.4 Sodium 140 Potassium 4.4 Chloride 105 Carbon Dioxide 25 Anion Gap 10 BUN 12 Creatinine 0.7 Creat Clearance w eGFR > 60 Random Glucose 107 H Calcium 8.1 L Total Bilirubin 0.2 D AST 26 ALT 77 Alkaline Phosphatase 233 H Troponin I < 0.02 < 0.02 Total Protein 7.1 Albumin 3.2 L Lipase 51 L Active Medications Generic Name Dose Route Start Last Admin Trade Name Freq PRN Reason Stop Dose Admin Heparin Sodium (Porcine) 5,000 unit 10/13/17 14:00 Heparin - SQ TID GWYN Sodium Chloride 1,000 mls @ 50 mls/hr 10/13/17 08:10 Normal Saline - IV ASDIR GWYN Metoprolol Tartrate 5 mg 10/12/17 19:04 Lopressor Injection - IVPUSH Q4H PRN HYPERTENSION Morphine Sulfate 2 mg 10/12/17 19:03 10/12/17 22:59 Morphine Injection - IVPUSH 2 mg Q4H PRN Administration PAIN LEVEL 7 - 10 Ondansetron HCl 4 mg 10/12/17 18:22 Zofran Injection IVPUSH Q6H PRN NAUSEA AND/OR VOMITING ASSESSMENT/PLAN: Patient is a 57 year old woman with a significant past medical history of hypertension. She presents to the ED today with epigastric pain and nausea. She states the epigastric pain is constant, pressure type with 10/10 in intensity. She is unable to eat, experiencing nausea. Epigastric pain does not radiate but worsens with eating and is not associated with diaphoresis, chest pain or palpitations. She denies lightheadedness. Denies fever, cough, chills. Patient reports one episode of vomiting in hospital after her blood work was done. Patient was recently here between 09/30/2017 and 10/03/2017 for chest pain and was found to have new onset afib. Patient was placed on a Cardizem drip and discharged on Lopressor for rate control She was not anticoagulated as her CHADSVASC score was low. Her chest pain was thought to be likely secondary to her pericarditis related to small pericardial effusion. Patient was discharged with colchicine and ibuprofen taper per cardiology. Imagin09/30/17 MRCP - cholelithiasis, no evidence of cholecystitis. 10/01/17 CTA - no PE. Mild bibasilar atelectatic changes and probably infiltrates with minimal bhavani pleural effusion. Pericardial effusion of 1.5cm width noted along Left inferior margin 10/02/17 Echo -LVEF 65-70%. Left ventricle normal in size and systolic function. Right ventricle systolic function normal. No regional wall motion abnormalities. Moderate MR/TR. Small pericardial effusion, < 1cm. 10/12/2017: abd u/s cholelithiasis with thick walled gallbladder, acute cholecystitis cannot be excluded 10/12/2017: Echo: larger pericardial effusion compared to last visit Chest xray 10/12: large heart, left base/costrophrenic angle changes Cardiology: Prox. afib with rapid RVR Rapid afib this morning, metoprolol IV was ordered as prn and pt did not receive any doses overnight This a.m. was given Cardizem pushes, cardizem drip and lopessor 4mg q8 as well as dose of digoxin 0.25, pt converted to NSR but then reverted back to afib/ aflutter rvr 160s Start on an Amiodorone drip with initial loading dose Started on a heparin drip CTA on 10/01, negative for PE Pericardial effusion, Echo 10/12 shows increase in pericardial effusion Discussed with strategic procurement manager this morning GI: Abdominal pain/epigastric pain Ultrasound noted above NPO Hydration Protonix Monitor labs, vitals Cardiac monitoring Surgery and GI evaluation Cardiology consulted for surgical clearance once more stable F.E.N. Fluids: NS @ 50 Electrolytes: monitor Nutrition: NPO DVT: heparin drip GI: Protonix IV Incentive spirometer full code Visit type - Emergency Visit Emergency Visit: Yes ED Registration Date: 10/12/17 Care time: The patient presented to the Emergency Department on the above date and was hospitalized for further evaluation of their emergent condition. - New Patient This patient is new to me today: No - Critical Care Critical Care patient: No - Discharge Referral Referred to [facility] Med [facility] No
[2017-10-13] MEDS ORDERED: dilTIAZem HCL 50 MG/10 ML - 10 ML VIAL IVPUSH ONE (08:52)
[2017-10-13] MEDS ORDERED: DILTIAZEM INJECTION 125 MG in DEXTROSE 5%-WATER - 100 ML IVPB SCH (09:00)
[2017-10-13 09:05] LABS: INR 1.34 (0.82-1.09); PROTHROMBIN TIME (PATIENT) 15.1 SEC (9.98-11.88)
[2017-10-13] MEDS ORDERED: METOPROLOL TARTRATE 5 MG/5 ML VIAL ONE (09:07)
[2017-10-13] MEDS ORDERED: DIGOXIN 0.5 MG/2 ML AMPUL IVPUSH ONE (09:25)
[2017-10-13] MEDS: SODIUM CHLORIDE 1,000 ML IV SCH (09:27)
[2017-10-13] MEDS ORDERED: COLCHICINE 0.6 MG TABLET (FP) PO SCH (10:00)
[2017-10-13] MEDS ORDERED: METOPROLOL TARTRATE 5 MG/5 ML VIAL IVPUSH SCH ×2 (10:00)
--- NOTE | 2017-10-13 10:21 | CON.GI ---
Consult Consult Specialty:: GI Reason for Consultation:: epigastric pain - History of Present Illness History of Present Illness: Chart reviewed. The patient is known to GI service from recent admission for the same complaint , which was attributed to newly-diagnosed pericardial effusion and new onset of a.fib with RVR. She was noted to have choelithiais w/o cholesystitis on US. She had normal hepatic/pancreatic profile as well as negative noriega's. Endoscopic work up to investigate epigastric pain was deemed unnecessary at that time. As per initial intake: Patient is a 57 year old woman with a significant past medical history of Atrial fib with RvR (not on anticoagulants), pericarditis, and pericardial effusion She presents to the ED today with epigastric pain and nausea. She states the epigastric pain is constant, pressure type with 10/ 10 in intensity. She is unable to eat, experiencing nausea. Epigastric pain does not radiate but worsens with eating and is not associated with diaphoresis , chest pain or palpitations. She denies lightheadedness. Denies fever, cough , chills. Patient reports one episode of vomiting in hospital after her blood work was done. Patient was recently here between 09/30/2017 and 10/03/2017 for chest pain and was found to have new onset afib. Patient was placed on a Cardizem drip and discharged on Lopressor for rate control She was not anticoagulated as her CHADSVASC score was low. Her chest pain was thought to be likely secondary to her pericarditis related to small pericardial effusion. Patient was discharged with colchicine and ibuprofen taper per cardiology. Abd u/s cholelithiasis with thick walled gallbladder, acute cholecystitis cannot be exclulded. ECG, NSR replaces afib on previous ekg At the time of this encounter, the patient is in mild distress, c/o epigastirc, non-radiating pain w/o nausea, or vomiting. No fever, chills, jaundice, diarrhea , melena, hematochezia, or hematemesis. ECG tracing this am shows she has A.FIB with RVR, which she didn't have yesterday. - Past Medical History ...: No - Alcohol/Substance Use Hx Alcohol Use: No - Smoking History Smoking history: Never smoked Have you smoked in the past 12 months: No Home Medications - Allergies Allergies/Adverse Reactions: Allergies Allergy/AdvReac Type Severity Reaction Status Date / Time No Known Allergies Allergy Verified 10/12/17 09:45 - Home Medications Home Medications: Ambulatory Orders Colchicine [Colcrys -] 0.6 mg PO DAILY #30 tablet 10/03/17 Ibuprofen [Motrin -] 600 mg PO TID #60 tablet 10/03/17 Metoprolol Tartrate [Lopressor -] 25 mg PO BID #60 tablet 10/03/17 Omeprazole 40 mg PO DAILY 10/12/17 Physical Exam-GI Vital Signs: Vital Signs Temperature 99.1 F 10/13/17 05:55 Pulse Rate 141 H 10/13/17 09:38 Respiratory Rate 20 10/13/17 05:55 Blood Pressure 108/83 10/13/17 09:26 O2 Sat by Pulse Oximetry (%) 96 10/12/17 21:10 Constitutional: Yes: Mild Distress Eyes: Yes: Conjunctiva Clear HENT: Yes: Atraumatic Neck: Yes: Supple Cardiovascular: Yes: Tachycardia, Pulse Irregular Respiratory: Yes: Regular Gastrointestinal Inspection: No: Ascites, Distention ...Palpate: Yes: Guarding (epig/RUQ), Other (pos noriega's) Neurological: Yes: Alert, Oriented Labs: CBC, BMP 10/12/17 10:53 10/12/17 10:53 INR, PTT INR 1.34 (0.82-1.09) H 10/13/17 08:00 CBCD WBC 9.5 K/mm3 (4.0-10.0) 10/13/17 11:19 RBC 3.17 M/mm3 (3.60-5.2) L 10/13/17 11:19 Hgb 10.0 GM/dL (10.7-15.3) L 10/13/17 11:19 Hct 29.6 % (32.4-45.2) L 10/13/17 11:19 MCV 93.4 fl (80-96) 10/13/17 11:19 MCHC 33.8 g/dl (32.0-36.0) 10/13/17 11:19 RDW 13.6 % (11.6-15.6) 10/13/17 11:19 Plt Count 315 K/MM3 (134-434) 10/13/17 11:19 MPV 8.5 fl (7.5-11.1) 10/13/17 11:19 CMP Sodium 140 mmol/L (136-145) 10/12/17 10:53 Potassium 4.4 mmol/L (3.5-5.1) 10/12/17 10:53 Chloride 105 mmol/L (98-107) 10/12/17 10:53 Carbon Dioxide 25 mmol/L (21-32) 10/12/17 10:53 Anion Gap 10 (8-16) 10/12/17 10:53 BUN 12 mg/dL (7-18) 10/12/17 10:53 Creatinine 0.7 mg/dL (0.55-1.02) 10/12/17 10:53 Creat Clearance w eGFR > 60 (>60) 10/12/17 10:53 Calcium 8.1 mg/dL (8.5-10.1) L 10/12/17 10:53 Total Bilirubin 0.2 mg/dL (0.2-1.0) D 10/12/17 10:53 AST 26 U/L (15-37) 10/12/17 10:53 ALT 77 U/L (12-78) 10/12/17 10:53 Alkaline Phosphatase 233 U/L (45-117) H 10/12/17 10:53 Total Protein 7.1 g/dl (6.4-8.2) 10/12/17 10:53 Albumin 3.2 g/dl (3.4-5.0) L 10/12/17 10:53 Imaging - Results Ultrasound: Report Reviewed Problem List - Problems (1) Cholecystitis Code(s): K81.9 - CHOLECYSTITIS, UNSPECIFIED (2) Atrial fibrillation with rapid ventricular response Code(s): I48.91 - UNSPECIFIED ATRIAL FIBRILLATION (3) Epigastric abdominal pain Code(s): R10.13 - EPIGASTRIC PAIN (4) Afib Code(s): I48.91 - UNSPECIFIED ATRIAL FIBRILLATION (5) Cholelithiasis Code(s): K80.20 - CALCULUS OF GALLBLADDER W/O CHOLECYSTITIS W/O OBSTRUCTION Assessment/Plan A 57F with epigastric and RUQ pain/tenderness, cholelithiasis, elevated ALP and US suggestive of cholecytitis. Developed afib with RVR this morning. The patient will need cardiology re-evaluation, suspect a.fib may be triggered by sympathetic response to pain. Will also need surgical evaluation for possible cholecystetomy. Plan EGD when a.fib is under control. Agree with PPI. NPO until seen by surgery. Daily CBC, CMP, direct bili
--- NOTE | 2017-10-13 10:27 | EKG ---
Test Reason : Blood Pressure : / mmHG Vent. Rate : 122 BPM Atrial Rate : 138 BPM P-R Int : 000 ms QRS Dur : 078 ms QT Int : 330 ms P-R-T Axes : 000 035 -78 degrees QTc Int : 470 ms ATRIAL FIBRILLATION WITH RAPID VENTRICULAR RESPONSE WITH PREMATURE VENTRICULAR OR ABERRANTLY CONDUCTED COMPLEXES NONSPECIFIC ST AND T WAVE ABNORMALITY ABNORMAL ECG WHEN COMPARED WITH ECG OF 12-OCT-2017 10:51, ATRIAL FIBRILLATION HAS REPLACED SINUS RHYTHM VENT. RATE HAS INCREASED BY [address] NOW DEPRESSED IN ANTEROLATERAL LEADS NONSPECIFIC T WAVE ABNORMALITY, WORSE IN INFERIOR LEADS T WAVE INVERSION NOW EVIDENT IN ANTERIOR LEADS Confirmed by BARRON WARD MD ([id number]) on 10/13/2017 10:27:45 AM Referred By: Confirmed By:BARRON WARD MD
--- NOTE | 2017-10-13 11:28 | CONSULT ---
- Consultation REQUESTING PROVIDER: STANISLAV Joy CONSULT REQUEST: We have been asked to surgically evaluate this patient for possible symptomatic GB disease PCP:Evangelina Joy NP HISTORY OF PRESENT ILLNESS: Patient originally seen 09/30/17 w/asymptomatic GB disease; w/u revealed her c/o's were of a cardiac nature; she was txed and released; she returns again w/ similar c/o's; w/u reveals no evidence of acute cholecystitis and again seems to point to a cradiac nature of her c/o's; she denies nausea and or vomiting bu tc/o epigastric pain and substernal chest discomfort. PMHx: none PSHx: none Home Medications Medication Instructions Recorded Colchicine [Colcrys -] 0.6 mg PO DAILY #30 tablet 10/03/17 Ibuprofen [Motrin -] 600 mg PO TID #60 tablet 10/03/17 Metoprolol Tartrate [Lopressor -] 25 mg PO BID #60 tablet 10/03/17 Omeprazole 40 mg PO DAILY 10/12/17 Allergies Allergy/AdvReac Type Severity Reaction Status Date / Time No Known Allergies Allergy Verified 10/12/17 09:45 PHYSICAL EXAM: GENERAL: Awake, alert, and fully oriented, in no acute distress. HEAD: Normal with no signs of trauma. EYES: PERRL, sclera anicteric, conjunctiva clear. NECK: Normal ROM, supple without lymphadenopathy, JVD, or masses. ABDOMEN: Soft, nontender, not distended, normoactive bowel sounds, no guarding, no rebound, no masses. No organomegaly. MUSCULOSKELETAL: Normal ROM at all joints. No bony deformities or tenderness. No CVA tenderness. UPPER EXTREMITIES: 2+ pulses, warm, well-perfused. No cyanosis. Cap refill <2 seconds. No peripheral edema. LOWER EXTREMITIES: 2+ pulses, warm, well-perfused. No calf tenderness. No peripheral edema. NEUROLOGICAL: Normal speech, gait not observed. PSYCH: Cooperative. Good eye contact. Appropriate mood and affect. SKIN: Warm, dry, normal turgor, no rashes or lesions noted. Vital Signs Temperature 98.2 F 10/13/17 08:00 Pulse Rate 151 H 10/13/17 11:07 Respiratory Rate 20 10/13/17 08:00 Blood Pressure 114/46 10/13/17 11:07 O2 Sat by Pulse Oximetry (%) 96 10/13/17 08:00 Lab Results WBC 9.5 K/mm3 (4.0-10.0) D 10/12/17 10:53 RBC 3.46 M/mm3 (3.60-5.2) L 10/12/17 10:53 Hgb 11.0 GM/dL (10.7-15.3) D 10/12/17 10:53 Hct 32.2 % (32.4-45.2) L 10/12/17 10:53 MCV 93.0 fl (80-96) 10/12/17 10:53 MCHC 34.1 g/dl (32.0-36.0) 10/12/17 10:53 RDW 14.0 % (11.6-15.6) 10/12/17 10:53 Plt Count 364 K/MM3 (134-434) D 10/12/17 10:53 Sodium 140 mmol/L (136-145) 10/12/17 10:53 Potassium 4.4 mmol/L (3.5-5.1) 10/12/17 10:53 Chloride 105 mmol/L (98-107) 10/12/17 10:53 Carbon Dioxide 25 mmol/L (21-32) 10/12/17 10:53 Anion Gap 10 (8-16) 10/12/17 10:53 BUN 12 mg/dL (7-18) 10/12/17 10:53 Creatinine 0.7 mg/dL (0.55-1.02) 10/12/17 10:53 Random Glucose 107 mg/dL (74-106) H 10/12/17 10:53 Calcium 8.1 mg/dL (8.5-10.1) L 10/12/17 10:53 Blood Type O POSITIVE 10/13/17 08:52 Antibody Screen Negative 10/13/17 08:00 INR 1.34 (0.82-1.09) H 10/13/17 08:00 US and w/u to date reviewed IMP: cholelithiasis w/o acute cholecystitis and pericarditis and possible PUD/ dyspepsia PLAN: As per primary care team and Cardiology and GI; there is no indication for possible lap wilver at this time pending resolution of her other concurrent issues. Anish Conte MD FACS Visit type - Case Type Case Type: ED Admission - Emergency Emergency Visit: Yes ED Registration Date: 10/12/17 Care time: The patient presented to the Emergency Department on the above date and was hospitalized for further evaluation of their emergent condition. - New patient This patient is new to me today: Yes Date on this admission: 10/14/17 - Critical Care Critical Care patient: No
[2017-10-13 11:41] LABS: BASO % 0.4 % (0-2.0); EOS % 0.7 % (0-4.5); HEMATOCRIT 29.6 % (32.4-45.2); LYMPH % 14.2 % (8-40); MCH 31.6 pg (25.7-33.7); MCHC 33.8 g/dl (32.0-36.0); MEAN CELL VOLUME 93.4 fl (80-96); MEAN PLT VOLUME 8.5 fl (7.5-11.1); MONO % 8.7 % (3.8-10.2); PLATELET COUNT 315 K/MM3 (134-434); RBC 3.17 M/mm3 (3.60-5.2); RDW 13.6 % (11.6-15.6); WHITE BLOOD COUNT 9.5 K/mm3 (4.0-10.0)
[2017-10-13] MEDS: MORPHINE SULFATE 10 MG/1 ML *VIAL IVPUSH PRN (12:05)
[2017-10-13 12:09] LABS: ALBUMIN 2.8 g/dl (3.4-5.0); ANION GAP 9 (8-16); BLOOD UREA NITROGEN 15 mg/dL (7-18); CALCIUM 8.2 mg/dL (8.5-10.1); CHLORIDE 110 mmol/L (98-107); CO2 23 mmol/L (21-32); CREATININE 0.6 mg/dL (0.55-1.02); GLUCOSE,RANDOM 74 mg/dL (74-106); MAGNESIUM 2.1 mg/dL (1.8-2.4); SGOT/AST 16 U/L (15-37); SGPT/ALT 51 U/L (12-78); SODIUM 142 mmol/L (136-145)
[2017-10-13 12:12] LABS: ALK PHOS 183 U/L (45-117); BILIRUBIN,TOTAL 0.3 mg/dL (0.2-1.0); CHOLESTEROL 114 mg/dL (50-200); HDL CHOLESTEROL 27 mg/dL (40-60); LDL CHOLESTEROL (ONLY SJRH) 76 mg/dL (5-100); TOT PROT 6.2 g/dl (6.4-8.2); TRIGLYCERIDES 113 mg/dL (35-160)
[2017-10-13] MEDS ORDERED: ONDANSETRON 4 MG/2 ML VIAL ONE (12:17)
[2017-10-13] MEDS ORDERED: HEPARIN NA (PORCINE) 5,000 UNITS/ML 1ML VIAL SQ SCH (14:00)
[2017-10-13] MEDS ORDERED: AMIODARONE HCL 150 MG/3 ML VIAL IVPUSH ONE (14:45)
[2017-10-13] MEDS: ONDANSETRON 4 MG/2 ML VIAL IVPUSH PRN (14:55)
[2017-10-13] MEDS ORDERED: AMIODARONE IN DEXTROSE,ISO-OSM 360 MG/200 ML BAG IVPB SCH ×2 (15:00→15:15)
[2017-10-13] MEDS ORDERED: HEPARIN NA (PORCINE) 5,000 UNITS/ML 1ML VIAL IVPUSH PRN ×2 (15:09)
--- NOTE | 2017-10-13 15:16 | CON.CARD ---
Consult Consult Specialty:: Cardiology Referred by:: Ms. Rufino NP Reason for Consultation:: Paroxysmal atrial fibrillation and flutter - History of Present Illness Chief Complaint: Epigastric pain and palpitation History of Present Illness: 57 year old woman with a PMHx of paroxysmal atrial fibrillation (not on anticoagulants), and pericarditis with small pericardial effusion admitted 2017 with epigastric pain that began approximately 2 days prior to the admission. The patient was seen by GI. EGD planned. The patient developed recurrent atrial fibrillation, spontaneously cardioverted to sinus and relapsed with initially atrial flutter and changed to atrial fibrillation with rapid VR while receiving IV diltiazem, metoprolol and digoxin. Repeat echocardiogram 10/12/2017 showed normal LV size, wall motion and systolic function. LVEF = 70%. Normal RV. Normal LA and RA. Small and moderate (1-2 cm) pericardial effusion. The patient has palpitation while in rapid atrial and flutter. She has persistent epigastric pain. She denies chest pain, SOB, dizziness, syncope or near syncope. - History Source History Provided By: Patient, Medical Record Limitations to Obtaining History: No Limitations - Past Medical History Cardio/Vascular: Yes: AFIB, Other (Pericardial effusion) Gastrointestinal: Yes: Other (Epigastric pain) ...: No - Alcohol/Substance Use Hx Alcohol Use: No - Smoking History Smoking history: Never smoked Have you smoked in the past 12 months: No Home Medications - Allergies Allergies/Adverse Reactions: Allergies Allergy/AdvReac Type Severity Reaction Status Date / Time No Known Allergies Allergy Verified 10/12/17 09:45 - Home Medications Home Medications: Ambulatory Orders Colchicine [Colcrys -] 0.6 mg PO DAILY #30 tablet 10/03/17 Ibuprofen [Motrin -] 600 mg PO TID #60 tablet 10/03/17 Metoprolol Tartrate [Lopressor -] 25 mg PO BID #60 tablet 10/03/17 Omeprazole 40 mg PO DAILY 10/12/17 Review of Systems - Review of Systems Constitutional: reports: No Symptoms Eyes: reports: No Symptoms HENT: reports: No Symptoms Neck: reports: No Symptoms Cardiovascular: reports: Palpitations Respiratory: reports: No Symptoms Gastrointestinal: reports: Abdominal Pain Genitourinary: reports: No Symptoms Breasts: reports: No Symptoms Reported Musculoskeletal: reports: No Symptoms Integumentary: reports: No Symptoms Neurological: reports: No Symptoms Endocrine: reports: No Symptoms Hematology/Lymphatic: reports: No Symptoms Psychiatric: reports: No Symptoms Vital Signs: Vital Signs Temperature 98.8 F 10/13/17 14:08 Pulse Rate 71 10/13/17 14:08 Respiratory Rate 18 10/13/17 14:08 Blood Pressure 109/71 10/13/17 14:08 O2 Sat by Pulse Oximetry (%) 96 10/13/17 08:00 General: Well developed. Acute ill. Head: Normocephalic. Atraumatic, Eyes: PERRLA, EOMI. Sclerae anicteric. Conjunctivae clear. Neck: Supple. No JVD. No bruits. Heart: Normal S1, S2: Regularly regular rhythm and rate at the time of exam. No murmur. No gallop or rub. Lungs: Symmetrical air entry. Clear to auscultation. No crackle. No wheezing or rhonchi. Abdomen: Soft. Bowel sound positive. Epigastric tenderness. Extremities: No edema. Venous stasis. No clubbing or cyanosis. PD 2+, equal bilaterally. - Other Data Labs, Other Data: CBC, BMP 10/13/17 11:19 10/13/17 11:19 INR, PTT INR 1.34 (0.82-1.09) H 10/13/17 08:00 Troponin, BNP 10/12/17 10/13/17 10/13/17 22:00 11:19 11:19 Troponin I < 0.02 < 0.02 Cancelled Troponin, BNP 10/12/17 10/13/17 10/13/17 22:00 11:19 11:19 Troponin I < 0.02 < 0.02 Cancelled 10/13/2017 atrial fibrillation with rapid VR and VPCs. Echo: Report Reviewed (Normal LV and RV. Small to moderate (1-2 cm) pericardial effusion.) Ejection Fraction %: LVEF > or = 40 % Assessment/Plan 57 year old woman with a PMHx of paroxysmal atrial fibrillation (not on anticoagulants), and pericarditis with small pericardial effusion admitted 2017 with epigastric pain that began approximately 2 days prior to the admission. The patient was seen by GI. EGD planned. The patient developed recurrent atrial fibrillation, spontaneously cardioverted to sinus and relapsed with initially atrial flutter and changed to atrial fibrillation with rapid VR while receiving IV diltiazem, metoprolol and digoxin. Repeat echocardiogram 10/12/2017 showed normal LV size, wall motion and systolic function. LVEF = 70%. Normal RV. Normal LA and RA. Small and moderate (1-2 cm) pericardial effusion. 1) Paroxysmal atrial fibrillation and flutter. Start IV Amiodarone with bolus for rate and rhythm control while NPO. Start IV heparin while in the hospital. Will consider AC with NOAC after GI workup. 2) Pericarditis with small to moderate pericardial effusion. The patient was on colchicine for pericardial effusion. Her epigastric pain might be caused by colchicine. Will monitor the pericardial effusion. Will consider prednisone for pericardial effusion after GI evaluation. We will follow with you.
[2017-10-13] MEDS: HEPARIN INFUSION - 25,000 UNITS/500 ML INFUS.BAG IVPB SCH (15:19)
[2017-10-13] MEDS: AMIODARONE HCL INJECTION 450 MG in DEXTROSE 5%-WATER - 241 ML IV SCH (16:21)
[2017-10-14] MEDS: MORPHINE SULFATE 10 MG/1 ML *VIAL IVPUSH PRN ×3 (03:06→19:45)
[2017-10-14 08:15] LABS: ALBUMIN 2.6 g/dl (3.4-5.0); ALK PHOS 169 U/L (45-117); ANION GAP 7 (8-16); BILIRUBIN,DIRECT < 0.2 mg/dL (0.0-0.2); BILIRUBIN,TOTAL 0.4 mg/dL (0.2-1.0); BLOOD UREA NITROGEN 19 mg/dL (7-18); CALCIUM 7.7 mg/dL (8.5-10.1); CHLORIDE 110 mmol/L (98-107); CO2 26 mmol/L (21-32); CREATININE 0.6 mg/dL (0.55-1.02); GLUCOSE,RANDOM 78 mg/dL (74-106); SGOT/AST 15 U/L (15-37); SGPT/ALT 43 U/L (12-78); SODIUM 143 mmol/L (136-145); TOT PROT 6.2 g/dl (6.4-8.2)
[2017-10-14 08:29] LABS: HEMATOCRIT 28.2 % (32.4-45.2); HEMOGLOBIN 9.4 GM/dL (10.7-15.3); MCH 31.5 pg (25.7-33.7); MCHC 33.4 g/dl (32.0-36.0); MEAN CELL VOLUME 94.4 fl (80-96); MEAN PLT VOLUME 8.7 fl (7.5-11.1); PLATELET COUNT 290 K/MM3 (134-434); RBC 2.99 M/mm3 (3.60-5.2); RDW 13.8 % (11.6-15.6); WHITE BLOOD COUNT 8.3 K/mm3 (4.0-10.0)
[2017-10-14] MEDS: SODIUM CHLORIDE 1,000 ML IV SCH (08:35)
--- NOTE | 2017-10-14 09:14 | PN ---
Progress Note (short form) - Note Progress Note: Subjective: The patient was seen and examined at the bedside, she has reports of epigastric pain this morning. Remains NPO No win sinus rhythm On Amio and heparin gtt Current Medications Generic Name Dose Route Start Last Admin Trade Name Freq PRN Reason Stop Dose Admin Heparin Sodium (Porcine) 1,000 unit 10/13/17 15:09 10/14/17 01:00 Heparin - IVPUSH 1,000 unit PRN PRN Administration Heparin Heparin Sodium (Porcine) 5,000 unit 10/13/17 15:09 Heparin - IVPUSH PRN PRN Heparin Heparin Sodium/Dextrose 25,000 units in 500 mls @ 20 mls/hr 10/13/17 15:15 01:00 Heparin Infusion - IVPB 1,100 units/hr TITR GWYN 22 mls/hr Protocol Titration 1,000 UNITS/HR Amiodarone HCl 450 mg/ 250 mls @ 16.66 mls/hr 10/13/17 16:00 10/13/17 16:21 Dextrose IV 0.5 mg/min TITR GWYN 16.66 mls/hr Protocol Administration 0.5 MG/MIN Dextrose/Sodium Chloride 1,000 mls @ 75 mls/hr 10/14/17 09:15 D5-Ns - IV ASDIR GWYN Morphine Sulfate 2 mg 10/12/17 19:03 10/14/17 08:17 Morphine Injection - IVPUSH 2 mg Q4H PRN Administration PAIN LEVEL 7 - 10 Ondansetron HCl 4 mg 10/12/17 18:22 10/13/17 14:55 Zofran Injection IVPUSH 4 mg Q6H PRN Administration NAUSEA AND/OR VOMITING Objective: Vital Signs Period Temp Pulse Resp BP Sys/Rao Pulse Ox Last 24 Hr 97.9 F-99.1 F 58-161 18-20 107-143/46-90 96 Physical Exam: General: NAD, A&Ox3 Lungs: CTA bilaterally Heart: RRR, S1S2 Abd: Soft, mild epigastric tenderness. Normoactive bowel sounds Ext: Warm, well-perfused. 2+ DP/PT bilaterally Neuro: CN 2-12 intact CBCD WBC 8.3 K/mm3 (4.0-10.0) 10/14/17 06:59 RBC 2.99 M/mm3 (3.60-5.2) L 10/14/17 06:59 Hgb 9.4 GM/dL (10.7-15.3) L 10/14/17 06:59 Hct 28.2 % (32.4-45.2) L 10/14/17 06:59 MCV 94.4 fl (80-96) 10/14/17 06:59 MCHC 33.4 g/dl (32.0-36.0) 10/14/17 06:59 RDW 13.8 % (11.6-15.6) 10/14/17 06:59 Plt Count 290 K/MM3 (134-434) 10/14/17 06:59 MPV 8.7 fl (7.5-11.1) 10/14/17 06:59 CMP Sodium 143 mmol/L (136-145) 10/14/17 06:59 Potassium 4.0 mmol/L (3.5-5.1) 10/14/17 06:59 Chloride 110 mmol/L (98-107) H 10/14/17 06:59 Carbon Dioxide 26 mmol/L (21-32) 10/14/17 06:59 Anion Gap 7 (8-16) L 10/14/17 06:59 BUN 19 mg/dL (7-18) H 10/14/17 06:59 Creatinine 0.6 mg/dL (0.55-1.02) 10/14/17 06:59 Creat Clearance w eGFR > 60 (>60) 10/14/17 06:59 Random Glucose 78 mg/dL (74-106) 10/14/17 06:59 Calcium 7.7 mg/dL (8.5-10.1) L 10/14/17 06:59 Total Bilirubin 0.4 mg/dL (0.2-1.0) D 10/14/17 06:59 AST 15 U/L (15-37) 10/14/17 06:59 ALT 43 U/L (12-78) 10/14/17 06:59 Alkaline Phosphatase 169 U/L (45-117) H 10/14/17 06:59 Total Protein 6.2 g/dl (6.4-8.2) L 10/14/17 06:59 Albumin 2.6 g/dl (3.4-5.0) L 10/14/17 06:59 CARDIAC ENZYMES Troponin I < 0.02 ng/ml (0.00-0.05) 10/13/17 11:19 Assessment: This is a 57 year old female with PMHx of paroxysmal a.fib ( diagnosed on prior admission 09/2017), pericarditis, who presented to the ED with epigastric pain and nausea. Plan: 1) Paroxysmal A.fib with RVR - Converted to sinus rhythm overnight - On amiodarone gtt, transition to po per cardiology - On Heparin gtt, consider NOAC upon discharge - Appreciate cardiology consult 2) Pericardial effusion - Treated on last admittion 09/30-10/03 for acute pericarditis and discharged on colchicine and ibuprofen - ECHO 10/12 with increase in pericardial effusion - No evidence of cardiac tamponade - Continue to monitor closely 3) Epigastric pain - Will need EGD once a.fib controlled - Keep NPO - Protonix - MRCP 09/30 with cholelithiasis and no evidence of cholecystitis - Abdominal ultrasound: thick walled gallbladder, acute cholecystitis cannot be excluded - Given symptoms, will treat for acute cholecystits. Start Flagyl. Check qtc on EKG and if wnl will start Levaquin - Appreciate GI consult: EGD when a.fib controlled - Appreciate surgery consult 4) F/E/N: - Monitor electrolytes - NPO - IV fluids: switch to D5NS 5) Prophylaxis: - On Heparin gtt 6) Dispo: - Requires continued inpatient care CODE STATUS: FULL CODE Visit type - Emergency Visit Emergency Visit: Yes ED Registration Date: 10/12/17 Care time: The patient presented to the Emergency Department on the above date and was hospitalized for further evaluation of their emergent condition. - New Patient This patient is new to me today: Yes Date on this admission: 10/14/17 - Critical Care Critical Care patient: No
[2017-10-14] MEDS: DEXTROSE 5%-NORMAL SALINE 1,000 ML IV SCH (10:15)
[2017-10-14] MEDS: PANTOPRAZOLE SODIUM 40 MG VIAL IVPUSH SCH (10:15)
[2017-10-14 12:22] LABS: INR 1.37 (0.82-1.09); PROTHROMBIN TIME (PATIENT) 15.5 SEC (9.98-11.88)
--- NOTE | 2017-10-14 12:41 | PN ---
Progress Note, Physician Chief Complaint: still with nausea and epigastric pain. tele nsr @ 55-60 bpm History of Present Illness: 57 year old woman with a PMHx of paroxysmal atrial fibrillation (not on anticoagulants), and pericarditis with small pericardial effusion admitted 2017 with epigastric pain that began approximately 2 days prior to the admission. The patient was seen by GI. EGD planned. The patient developed recurrent atrial fibrillation, spontaneously cardioverted to sinus and relapsed with initially atrial flutter and changed to atrial fibrillation with rapid VR while receiving IV diltiazem, metoprolol and digoxin. Repeat echocardiogram 10/12/2017 showed normal LV size, wall motion and systolic function. LVEF = 70%. Normal RV. Normal LA and RA. Small and moderate (1-2 cm) pericardial effusion. she is in nsr today with rates 55-60. - Current Medication List Current Medications: Active Medications Heparin Sodium (Porcine) (Heparin -) 1,000 unit IVPUSH PRN PRN PRN Reason: Heparin Last Admin: 10/14/17 01:00 Dose: 1,000 unit Heparin Sodium (Porcine) (Heparin -) 5,000 unit IVPUSH PRN PRN PRN Reason: Heparin Heparin Sodium/Dextrose (Heparin Infusion -) 25,000 units in 500 mls @ 20 mls/ hr IVPB TITR GWYN; 1,000 UNITS/HR PRN Reason: Protocol Last Titration: 10/14/17 01:00 Dose: 1,100 units/hr, 22 mls/hr Amiodarone HCl 450 mg/ (Dextrose) 250 mls @ 16.66 mls/hr IV TITR GWYN; 0.5 MG/ MIN PRN Reason: Protocol Last Admin: 10/13/17 16:21 Dose: 0.5 mg/min, 16.66 mls/hr Dextrose/Sodium Chloride (D5-Ns -) 1,000 mls @ 75 mls/hr IV ASDIR GWYN Last Admin: 10/14/17 10:15 Dose: 75 mls/hr Metronidazole (Flagyl 500mg Premixed Ivpb -) 500 mg in 100 mls @ 100 mls/hr IVPB Q8H-IV GWYN Last Admin: 10/14/17 10:16 Dose: 100 mls/hr Morphine Sulfate (Morphine Injection -) 2 mg IVPUSH Q4H PRN PRN Reason: PAIN LEVEL 7 - 10 Last Admin: 10/14/17 08:17 Dose: 2 mg Ondansetron HCl (Zofran Injection) 4 mg IVPUSH Q6H PRN PRN Reason: NAUSEA AND/OR VOMITING Last Admin: 10/13/17 14:55 Dose: 4 mg Pantoprazole Sodium (Protonix Iv) 40 mg IVPUSH DAILY GWYN Last Admin: 10/14/17 10:15 Dose: 40 mg - Objective Vital Signs: Vital Signs Temperature 98 F 10/14/17 10:00 Pulse Rate 68 10/14/17 10:00 Respiratory Rate 18 10/14/17 10:00 Blood Pressure 128/80 10/14/17 10:00 O2 Sat by Pulse Oximetry (%) 96 10/13/17 21:00 Constitutional: Yes: No Distress, Calm Eyes: Yes: Conjunctiva Clear, EOM Intact HENT: Yes: Atraumatic, Normocephalic Neck: Yes: Trachea Midline Cardiovascular: Yes: Regular Rate and Rhythm Respiratory: Yes: CTA Bilaterally Gastrointestinal: Yes: Normal Bowel Sounds, Soft Extremities: Yes: WNL Edema: No Peripheral Pulses WNL: Yes Labs: CBC, BMP 10/14/17 06:59 10/14/17 06:59 INR, PTT INR 1.37 (0.82-1.09) H 10/14/17 06:59 Problem List - Problems (1) Atrial fibrillation with rapid ventricular response Assessment/Plan: 1) Paroxysmal atrial fibrillation and flutter. Start IV Amiodarone with bolus for rate and rhythm control while NPO. Start IV heparin while in the hospital. Will consider AC with NOAC after GI workup. She is in nsr today. will change amio to PO when taking PO. Code(s): I48.91 - UNSPECIFIED ATRIAL FIBRILLATION (2) Pericardial effusion Assessment/Plan: 2) Pericarditis with small to moderate pericardial effusion. The patient was on colchicine for pericardial effusion. Her epigastric pain is probably not caused by colchicine given the persistent nature post DC of the drug. Will monitor the pericardial effusion. Will consider prednisone for pericardial effusion after GI evaluation, but would rather treat with colchicine and indomethacin. Will reassess regimen post EGD. will follow serial echoes as well as esr and crp. would also consider rheumatology evaluation for serologies and workup. Code(s): I31.3 - PERICARDIAL EFFUSION (NONINFLAMMATORY) Assessment/Plan 57 year old woman with a PMHx of paroxysmal atrial fibrillation (not on anticoagulants), and pericarditis with small pericardial effusion admitted 2017 with epigastric pain that began approximately 2 days prior to the admission. The patient was seen by GI. EGD planned. The patient developed recurrent atrial fibrillation, spontaneously cardioverted to sinus and relapsed with initially atrial flutter and changed to atrial fibrillation with rapid VR while receiving IV diltiazem, metoprolol and digoxin. Repeat echocardiogram 10/12/2017 showed normal LV size, wall motion and systolic function. LVEF = 70%. Normal RV. Normal LA and RA. Small and moderate (1-2 cm) pericardial effusion. 1) Paroxysmal atrial fibrillation and flutter. Start IV Amiodarone with bolus for rate and rhythm control while NPO. Start IV heparin while in the hospital. Will consider AC with NOAC after GI workup. 2) Pericarditis with small to moderate pericardial effusion. The patient was on colchicine for pericardial effusion. Her epigastric pain might be caused by colchicine. Will monitor the pericardial effusion. Will consider prednisone for pericardial effusion after GI evaluation.
[2017-10-14] MEDS ORDERED: ACETAMINOPHEN 1000 MG/100 ML VIAL (NON FORMULARY) IVPB ONE (13:52)
[2017-10-14] MEDS: HEPARIN INFUSION - 25,000 UNITS/500 ML INFUS.BAG IVPB SCH (15:01)
--- NOTE | 2017-10-14 18:39 | EKG ---
Test Reason : Blood Pressure : / mmHG Vent. Rate : 058 BPM Atrial Rate : 058 BPM P-R Int : 148 ms QRS Dur : 090 ms QT Int : 460 ms P-R-T Axes : 014 028 010 degrees QTc Int : 451 ms SINUS BRADYCARDIA NONSPECIFIC T WAVE ABNORMALITY ABNORMAL ECG WHEN COMPARED WITH ECG OF 13-OCT-2017 09:02, SINUS RHYTHM HAS REPLACED ATRIAL FIBRILLATION VENT. RATE HAS DECREASED BY [address] NO LONGER DEPRESSED IN ANTERIOR LEADS Confirmed by MICHAEL SANON MD ([id number]) on 10/14/2017 6:39:18 PM Referred By: Lidya AGUIRRE Confirmed By:MICHAEL SANON MD
[2017-10-14] MEDS: ONDANSETRON 4 MG/2 ML VIAL IVPUSH PRN (19:45)
[2017-10-15] MEDS: MORPHINE SULFATE 10 MG/1 ML *VIAL IVPUSH PRN (05:21)
[2017-10-15] MEDS: ONDANSETRON 4 MG/2 ML VIAL IVPUSH PRN ×2 (05:21→20:17)
[2017-10-15 07:22] LABS: HEMATOCRIT 28.7 % (32.4-45.2); HEMOGLOBIN 9.8 GM/dL (10.7-15.3); MCH 31.8 pg (25.7-33.7); MCHC 34.1 g/dl (32.0-36.0); MEAN CELL VOLUME 93.3 fl (80-96); MEAN PLT VOLUME 8.6 fl (7.5-11.1); PLATELET COUNT 301 K/MM3 (134-434); RBC 3.08 M/mm3 (3.60-5.2); WHITE BLOOD COUNT 7.2 K/mm3 (4.0-10.0)
[2017-10-15] MEDS ORDERED: DIGOXIN 0.5 MG/2 ML AMPUL IVPUSH ONE ×3 (09:30→21:30)
[2017-10-15] MEDS: PANTOPRAZOLE SODIUM 40 MG VIAL IVPUSH SCH (09:41)
[2017-10-15] MEDS: AMIODARONE HCL INJECTION 450 MG in DEXTROSE 5%-WATER - 241 ML IV SCH (12:43)
--- NOTE | 2017-10-15 13:24 | PN ---
Progress Note, Physician Chief Complaint: still with nausea and epigastric pain. tele af with RVR, now nsr @ 55-60 bpm History of Present Illness: 57 year old woman with a PMHx of paroxysmal atrial fibrillation (not on anticoagulants), and pericarditis with small pericardial effusion admitted 2017 with epigastric pain that began approximately 2 days prior to the admission. The patient was seen by GI. EGD planned. The patient developed recurrent atrial fibrillation, spontaneously cardioverted to sinus and relapsed with initially atrial flutter and changed to atrial fibrillation with rapid VR while receiving IV diltiazem, metoprolol and digoxin. Repeat echocardiogram 10/12/2017 showed normal LV size, wall motion and systolic function. LVEF = 70%. Normal RV. Normal LA and RA. Small and moderate (1-2 cm) pericardial effusion. 10/15/17: she had recurrent atrial fibrillation with rvr responded to dig load with amiodarone. she is in nsr now with rates 55-60. - Current Medication List Current Medications: Active Medications Digoxin (Lanoxin Injection -) 0.25 mg IVPUSH ONCE ONE Stop: 10/15/17 15:31 Digoxin (Lanoxin Injection -) 0.25 mg IVPUSH ONCE ONE Stop: 10/15/17 21:31 Heparin Sodium (Porcine) (Heparin -) 1,000 unit IVPUSH PRN PRN PRN Reason: Heparin Last Admin: 10/14/17 01:00 Dose: 1,000 unit Heparin Sodium (Porcine) (Heparin -) 5,000 unit IVPUSH PRN PRN PRN Reason: Heparin Heparin Sodium/Dextrose (Heparin Infusion -) 25,000 units in 500 mls @ 20 mls/ hr IVPB TITR GWYN; 1,000 UNITS/HR PRN Reason: Protocol Last Admin: 10/14/17 15:01 Dose: 1,100 units/hr, 22 mls/hr Amiodarone HCl 450 mg/ (Dextrose) 250 mls @ 16.66 mls/hr IV TITR GWYN; 0.5 MG/ MIN PRN Reason: Protocol Last Admin: 10/15/17 12:43 Dose: 0.5 mg/min, 16.66 mls/hr Dextrose/Sodium Chloride (D5-Ns -) 1,000 mls @ 75 mls/hr IV ASDIR GWYN Last Admin: 10/14/17 10:15 Dose: 75 mls/hr Metronidazole (Flagyl 500mg Premixed Ivpb -) 500 mg in 100 mls @ 100 mls/hr IVPB Q8H-IV GWYN Last Admin: 10/15/17 09:44 Dose: 100 mls/hr Morphine Sulfate (Morphine Injection -) 2 mg IVPUSH Q4H PRN PRN Reason: PAIN LEVEL 7 - 10 Last Admin: 10/15/17 05:21 Dose: 2 mg Ondansetron HCl (Zofran Injection) 4 mg IVPUSH Q6H PRN PRN Reason: NAUSEA AND/OR VOMITING Last Admin: 10/15/17 05:21 Dose: 4 mg Pantoprazole Sodium (Protonix Iv) 40 mg IVPUSH DAILY GWYN Last Admin: 10/15/17 09:41 Dose: 40 mg - Objective Vital Signs: Vital Signs Temperature 98 F 10/15/17 09:00 Pulse Rate 150 H 10/15/17 09:40 Respiratory Rate 18 10/15/17 09:00 Blood Pressure 133/88 10/15/17 09:00 O2 Sat by Pulse Oximetry (%) 96 10/15/17 09:00 Constitutional: Yes: No Distress, Calm Eyes: Yes: Conjunctiva Clear, EOM Intact HENT: Yes: Normocephalic Neck: Yes: Trachea Midline Cardiovascular: Yes: Regular Rate and Rhythm Respiratory: Yes: CTA Bilaterally Extremities: Yes: WNL Edema: No Peripheral Pulses WNL: Yes Labs: CBC, BMP 10/15/17 06:57 10/14/17 06:59 INR, PTT INR 1.37 (0.82-1.09) H 10/14/17 06:59 Problem List - Problems (1) Atrial fibrillation with rapid ventricular response Assessment/Plan: 1) Paroxysmal atrial fibrillation and flutter. Start IV Amiodarone with bolus for rate and rhythm control while NPO. Start IV heparin while in the hospital. Will consider AC with NOAC after GI workup. She is in nsr today. will change amio to PO when taking PO. She has no cardiac contraindications to EGD. This is a low risk procedure. Code(s): I48.91 - UNSPECIFIED ATRIAL FIBRILLATION (2) Pericardial effusion Assessment/Plan: 2) Pericarditis with small to moderate pericardial effusion. The patient was on colchicine for pericardial effusion. Her epigastric pain is probably not caused by colchicine given the persistent nature post DC of the drug. Will monitor the pericardial effusion. Will consider prednisone for pericardial effusion after GI evaluation, but would rather treat with colchicine and indomethacin. Will reassess regimen post EGD. will follow serial echoes as well as esr and crp. would also consider rheumatology evaluation for serologies and workup. Code(s): I31.3 - PERICARDIAL EFFUSION (NONINFLAMMATORY)
--- NOTE | 2017-10-15 16:23 | PN ---
Progress Note (short form) - Note Progress Note: Subjective: The patient was seen and examined at the bedside, she denies any symptoms at this time Remains on amiodarone gtt, given po digoxin today Current Medications Generic Name Dose Route Start Last Admin Trade Name Freq PRN Reason Stop Dose Admin Digoxin 0.25 mg 10/15/17 21:30 Lanoxin Injection - IVPUSH 10/15/17 21:31 ONCE ONE Heparin Sodium (Porcine) 1,000 unit 10/13/17 15:09 10/14/17 01:00 Heparin - IVPUSH 1,000 unit PRN PRN Administration Heparin Heparin Sodium (Porcine) 5,000 unit 10/13/17 15:09 Heparin - IVPUSH PRN PRN Heparin Heparin Sodium/Dextrose 25,000 units in 500 mls @ 20 mls/hr 10/13/17 15:15 15:01 Heparin Infusion - IVPB 1,100 units/hr TITR GWYN 22 mls/hr Protocol Administration 1,000 UNITS/HR Amiodarone HCl 450 mg/ 250 mls @ 16.66 mls/hr 10/13/17 16:00 10/15/17 12:43 Dextrose IV 0.5 mg/min TITR GWYN 16.66 mls/hr Protocol Administration 0.5 MG/MIN Dextrose/Sodium Chloride 1,000 mls @ 75 mls/hr 10/14/17 09:15 10/14/17 10:15 D5-Ns - IV 75 mls/hr ASDIR GWYN Administration Metronidazole 500 mg in 100 mls @ 100 mls/hr 10/14/17 10:00 10/15/17 09:44 Flagyl 500mg Premixed Ivpb - IVPB 100 mls/hr Q8H-IV GWYN Administration Morphine Sulfate 2 mg 10/12/17 19:03 10/15/17 05:21 Morphine Injection - IVPUSH 2 mg Q4H PRN Administration PAIN LEVEL 7 - 10 Ondansetron HCl 4 mg 10/12/17 18:22 10/15/17 05:21 Zofran Injection IVPUSH 4 mg Q6H PRN Administration NAUSEA AND/OR VOMITING Pantoprazole Sodium 40 mg 10/14/17 10:00 10/15/17 09:41 Protonix Iv IVPUSH 40 mg DAILY GWYN Administration Objective: Vital Signs Period Temp Pulse Resp BP Sys/Rao Pulse Ox Last 24 Hr 98 F-98.8 F 58-150 18-18 120-143/57-92 96-96 Physical Exam: General: NAD, A&Ox3 Lungs: CTA bilaterally Heart: RRR, S1S2 Abd: Soft, non-tender, non-distended. Normoactive bowel sounds Ext: Warm, well-perfused. 2+ DP/PT bilaterally Neuro: CN 2-12 intact CBCD WBC 7.2 K/mm3 (4.0-10.0) 10/15/17 06:57 RBC 3.08 M/mm3 (3.60-5.2) L 10/15/17 06:57 Hgb 9.8 GM/dL (10.7-15.3) L 10/15/17 06:57 Hct 28.7 % (32.4-45.2) L 10/15/17 06:57 MCV 93.3 fl (80-96) 10/15/17 06:57 MCHC 34.1 g/dl (32.0-36.0) 10/15/17 06:57 RDW 14.0 % (11.6-15.6) 10/15/17 06:57 Plt Count 301 K/MM3 (134-434) 10/15/17 06:57 MPV 8.6 fl (7.5-11.1) 10/15/17 06:57 CMP Sodium 143 mmol/L (136-145) 10/14/17 06:59 Potassium 4.0 mmol/L (3.5-5.1) 10/14/17 06:59 Chloride 110 mmol/L (98-107) H 10/14/17 06:59 Carbon Dioxide 26 mmol/L (21-32) 10/14/17 06:59 Anion Gap 7 (8-16) L 10/14/17 06:59 BUN 19 mg/dL (7-18) H 10/14/17 06:59 Creatinine 0.6 mg/dL (0.55-1.02) 10/14/17 06:59 Creat Clearance w eGFR > 60 (>60) 10/14/17 06:59 Random Glucose 78 mg/dL (74-106) 10/14/17 06:59 Calcium 7.7 mg/dL (8.5-10.1) L 10/14/17 06:59 Total Bilirubin 0.4 mg/dL (0.2-1.0) D 10/14/17 06:59 AST 15 U/L (15-37) 10/14/17 06:59 ALT 43 U/L (12-78) 10/14/17 06:59 Alkaline Phosphatase 169 U/L (45-117) H 10/14/17 06:59 Total Protein 6.2 g/dl (6.4-8.2) L 10/14/17 06:59 Albumin 2.6 g/dl (3.4-5.0) L 10/14/17 06:59 CARDIAC ENZYMES Troponin I < 0.02 ng/ml (0.00-0.05) 10/13/17 11:19 Assessment: This is a 57 year old female with PMHx of paroxysmal a.fib ( diagnosed on prior admission 09/2017), pericarditis, who presented to the ED with epigastric pain and nausea. Plan: 1) Paroxysmal A.fib with RVR - Recurrent a.fib with RVR, which responded to digoxin loading, now back in NSR - Continue amiodarone gtt - On Heparin gtt, consider NOAC upon discharge - Appreciate cardiology consult 2) Pericardial effusion - Treated on last admittion 09/30-10/03 for acute pericarditis and discharged on colchicine and ibuprofen - ECHO 10/12 with increase in pericardial effusion - Serial ECHOs, f/u ESR/CRP - No evidence of cardiac tamponade - Continue to monitor closely 3) Epigastric pain - MRCP 09/30 with cholelithiasis and no evidence of cholecystitis - EGD tomorrow - Protonix - Abdominal ultrasound: thick walled gallbladder, acute cholecystitis cannot be excluded - Discussed with surgery, no evidence of acute cholecystitis, patient is asymptomatic, WBC wnl, afebrile. Will discontinue abx - Appreciate GI consult: EGD tomorrow - Appreciate surgery consult 4) F/E/N: - Monitor electrolytes - Regular diet for dinner - NPO after midnight for EGD tomorrow - IV fluids 5) Prophylaxis: - On Heparin gtt - OOB ambulating 6) Dispo: - Requires continued inpatient care CODE STATUS: FULL CODE
[2017-10-15] MEDS: HEPARIN INFUSION - 25,000 UNITS/500 ML INFUS.BAG IVPB SCH (16:38)
[2017-10-15] MEDS: DEXTROSE 5%-NORMAL SALINE 1,000 ML IV SCH (16:41)
[2017-10-15] MEDS ORDERED: morphine SULFATE 4 MG/ML VIAL IVPUSH PRN (23:20)
[2017-10-16] MEDS: ONDANSETRON 4 MG/2 ML VIAL IVPUSH PRN (03:00)
[2017-10-16] MEDS: AMIODARONE HCL INJECTION 450 MG in DEXTROSE 5%-WATER - 241 ML IV SCH (04:07)
[2017-10-16 07:16] LABS: ALBUMIN 2.6 g/dl (3.4-5.0); ANION GAP 10 (8-16); BLOOD UREA NITROGEN 7 mg/dL (7-18); CALCIUM 7.7 mg/dL (8.5-10.1); CHLORIDE 105 mmol/L (98-107); CO2 26 mmol/L (21-32); CREATININE 0.5 mg/dL (0.55-1.02); GLUCOSE,RANDOM 121 mg/dL (74-106); SGOT/AST 13 U/L (15-37); SGPT/ALT 30 U/L (12-78); SODIUM 141 mmol/L (136-145)
[2017-10-16 07:18] LABS: ALK PHOS 131 U/L (45-117); BILIRUBIN,TOTAL 0.3 mg/dL (0.2-1.0); TOT PROT 6.1 g/dl (6.4-8.2)
[2017-10-16 07:38] LABS: HEMATOCRIT 27.9 % (32.4-45.2); HEMOGLOBIN 9.6 GM/dL (10.7-15.3); MCH 31.8 pg (25.7-33.7); MCHC 34.2 g/dl (32.0-36.0); MEAN CELL VOLUME 92.9 fl (80-96); MEAN PLT VOLUME 8.4 fl (7.5-11.1); PLATELET COUNT 314 K/MM3 (134-434); RBC 3.01 M/mm3 (3.60-5.2); RDW 13.4 % (11.6-15.6); WHITE BLOOD COUNT 7.4 K/mm3 (4.0-10.0)
[2017-10-16] MEDS: PANTOPRAZOLE SODIUM 40 MG VIAL IVPUSH SCH (09:12)
[2017-10-16 09:17] LABS: INR 1.56 (0.82-1.09); PROTHROMBIN TIME (PATIENT) 17.6 SEC (9.98-11.88)
--- NOTE | 2017-10-16 09:17 | PN ---
Physical Exam: SUBJECTIVE: Patient seen and examined at the bedside. Very nauseous, uncomfortable, guarding her abdomen. Unable to get comfortable. Zofran not helping OBJECTIVE: Will give dose of Reglan now and see if it helps, may also try low dose ativan 0.5mg for nausea if reglan ineffective will increase frequency of morphine to 2mg from q6 to q4 Still on heparin drip and amiodorone drip SR on playground monitor currently but rapid heart, afib with RVR overnight K repleted with 2 K riders Vital Signs Period Temp Pulse Resp BP Sys/Rao Pulse Ox Last 24 Hr 98.2 F-98.8 F 60-150 18-18 120-141/57-89 96 GENERAL: The patient is awake, alert, and fully oriented, HEAD: Normal with no signs of trauma. EYES: PERRL, extraocular movements intact, sclera anicteric, conjunctiva clear. No ptosis. ENT: Ears normal, nares patent, oropharynx clear without exudates, moist mucous membranes. NECK: Trachea midline, full range of motion, supple. LUNGS: Breath sounds equal,diminished on left base HEART: SR on playground monitor ABDOMEN: Soft, mildly distended, Pain to light palpation of epigastric area, guarding her abdomen EXTREMITIES: 2+ pulses, warm, well-perfused, no edema. NEUROLOGICAL: Cranial nerves II through XII grossly intact. Normal speech, gait not observed. PSYCH: Normal mood, normal affect. SKIN: Warm, dry, normal turgor, no rashes or lesions noted Laboratory Results - last 24 hr 10/16/17 10/16/17 10/16/17 06:30 06:30 06:30 WBC 7.4 RBC 3.01 L Hgb 9.6 L Hct 27.9 L MCV 92.9 MCH 31.8 MCHC 34.2 RDW 13.4 Plt Count 314 MPV 8.4 PTT (Actin FS) 53.3 H Sodium 141 Potassium 3.0 L Chloride 105 Carbon Dioxide 26 Anion Gap 10 BUN 7 Creatinine 0.5 L Creat Clearance w eGFR > 60 Random Glucose 121 H Calcium 7.7 L Total Bilirubin 0.3 D AST 13 L ALT 30 Alkaline Phosphatase 131 H C-Reactive Protein 6.4 H Total Protein 6.1 L Albumin 2.6 L Active Medications Generic Name Dose Route Start Last Admin Trade Name Freq PRN Reason Stop Dose Admin Heparin Sodium (Porcine) 1,000 unit 10/13/17 15:09 10/14/17 01:00 Heparin - IVPUSH 1,000 unit PRN PRN Administration Heparin Heparin Sodium (Porcine) 5,000 unit 10/13/17 15:09 Heparin - IVPUSH PRN PRN Heparin Heparin Sodium/Dextrose 25,000 units in 500 mls @ 20 mls/hr 10/13/17 15:15 16:38 Heparin Infusion - IVPB 1,100 units/hr TITR GWYN 22 mls/hr Protocol Administration 1,000 UNITS/HR Amiodarone HCl 450 mg/ 250 mls @ 16.66 mls/hr 10/13/17 16:00 10/16/17 04:07 Dextrose IV 0.5 mg/min TITR GWYN 16.66 mls/hr Protocol Administration 0.5 MG/MIN Dextrose/Sodium Chloride 1,000 mls @ 75 mls/hr 10/14/17 09:15 10/15/17 16:41 D5-Ns - IV 75 mls/hr ASDIR GWYN Administration Potassium Chloride 10 meq/ 105 mls @ 105 mls/hr 10/16/17 10:00 Sodium Chloride IVPB 10/16/17 11:59 Q60M GWYN Morphine Sulfate 2 mg 10/15/17 23:20 10/15/17 23:32 Morphine Sulfate IVPUSH 2 mg Q6H PRN Administration PAIN LEVEL 7 - 10 Ondansetron HCl 4 mg 10/12/17 18:22 10/16/17 03:00 Zofran Injection IVPUSH 4 mg Q6H PRN Administration NAUSEA AND/OR VOMITING Pantoprazole Sodium 40 mg 10/14/17 10:00 10/16/17 09:12 Protonix Iv IVPUSH 40 mg DAILY GWYN Administration ASSESSMENT/PLAN: Patient is a 57 year old woman with a significant past medical history of hypertension. She presents to the ED today with epigastric pain and nausea. She states the epigastric pain is constant, pressure type with 10/10 in intensity. She is unable to eat, experiencing nausea. Epigastric pain does not radiate but worsens with eating and is not associated with diaphoresis, chest pain or palpitations. She denies lightheadedness. Denies fever, cough, chills. Patient reports one episode of vomiting in hospital after her blood work was done. Patient was recently here between 09/30/2017 and 10/03/2017 for chest pain and was found to have new onset afib. Patient was placed on a Cardizem drip and discharged on Lopressor for rate control She was not anticoagulated as her CHADSVASC score was low. Her chest pain was thought to be likely secondary to her pericarditis related to small pericardial effusion. Patient was discharged with colchicine and ibuprofen taper per cardiology. Imagin09/30/17 MRCP - cholelithiasis, no evidence of cholecystitis. 10/01/17 CTA - no PE. Mild bibasilar atelectatic changes and probably infiltrates with minimal bhavani pleural effusion. Pericardial effusion of 1.5cm width noted along Left inferior margin 10/02/17 Echo -LVEF 65-70%. Left ventricle normal in size and systolic function. Right ventricle systolic function normal. No regional wall motion abnormalities. Moderate MR/TR. Small pericardial effusion, < 1cm. 10/12/2017: abd u/s cholelithiasis with thick walled gallbladder, acute cholecystitis cannot be excluded 10/12/2017: Echo: larger pericardial effusion compared to last visit Chest xray 10/12: large heart, left base/costrophrenic angle changes Cardiology: Prox. afib with rapid RVR Had episode of afib with RVR yesterday On Amiodorone drip On Heparin drip Heparin to be held at 0200 10/17/17 for EGD CTA on 10/01, negative for PE Pericardial effusion, Echo 10/12 shows increase in pericardial effusion Discussed with amusement machine mechanic this morning GI: Abdominal pain/epigastric pain Ultrasound noted above NPO Hydration Protonix IV Monitor labs, vitals Cardiac monitoring Surgery and GI evaluation EGD tomorrow F.E.N. Fluids: NS @ 75 Electrolytes: hypoK repleted with 2 K riders Nutrition: NPO DVT: heparin drip GI: Protonix IV Incentive spirometer full code
[2017-10-16] MEDS: DEXTROSE 5%-NORMAL SALINE 1,000 ML IV SCH (09:22)
[2017-10-16] MEDS ORDERED: morphine SULFATE 4 MG/ML VIAL IVPUSH PRN ×3 (09:29→09:32)
[2017-10-16] MEDS: POTASSIUM CHLORIDE 10 MEQ in SODIUM CHLORIDE 100 ML IVPB SCH ×4 (10:19→23:40)
[2017-10-16] MEDS ORDERED: METOCLOPRAMIDE HCL INJECTION 10 MG/2 ML VIAL IVPUSH ONE (10:30)
--- NOTE | 2017-10-16 12:25 | PN ---
Progress Note, Physician History of Present Illness: Chart reviewed. Nauseous this am, minimal response to zofran. Preglan is being prescribed On amiodarone, and heparin drips. Cleared by cardiology for EGD - Current Medication List Current Medications: Active Medications Heparin Sodium (Porcine) (Heparin -) 1,000 unit IVPUSH PRN PRN PRN Reason: Heparin Last Admin: 10/14/17 01:00 Dose: 1,000 unit Heparin Sodium (Porcine) (Heparin -) 5,000 unit IVPUSH PRN PRN PRN Reason: Heparin Heparin Sodium/Dextrose (Heparin Infusion -) 25,000 units in 500 mls @ 20 mls/ hr IVPB TITR GWYN; 1,000 UNITS/HR PRN Reason: Protocol Last Admin: 10/15/17 16:38 Dose: 1,100 units/hr, 22 mls/hr Amiodarone HCl 450 mg/ (Dextrose) 250 mls @ 16.66 mls/hr IV TITR GWYN; 0.5 MG/ MIN PRN Reason: Protocol Last Admin: 10/16/17 04:07 Dose: 0.5 mg/min, 16.66 mls/hr Dextrose/Sodium Chloride (D5-Ns -) 1,000 mls @ 75 mls/hr IV ASDIR GWYN Last Admin: 10/16/17 09:22 Dose: 75 mls/hr Morphine Sulfate (Morphine Sulfate) 2 mg IVPUSH Q4H PRN PRN Reason: PAIN LEVEL 7 - 10 Last Admin: 10/16/17 10:12 Dose: 2 mg Ondansetron HCl (Zofran Injection) 4 mg IVPUSH Q6H PRN PRN Reason: NAUSEA AND/OR VOMITING Last Admin: 10/16/17 03:00 Dose: 4 mg Pantoprazole Sodium (Protonix Iv) 40 mg IVPUSH DAILY GWYN Last Admin: 10/16/17 09:12 Dose: 40 mg - Objective Vital Signs: Vital Signs Temperature 98 F 10/16/17 09:00 Pulse Rate 64 10/16/17 09:00 Respiratory Rate 18 10/16/17 09:00 Blood Pressure 140/60 10/16/17 09:00 O2 Sat by Pulse Oximetry (%) 96 10/15/17 21:00 Constitutional: Yes: Anxious, Mild Distress (nausea-related) Gastrointestinal: Yes: Soft, Tenderness, Epigastrium Neurological: Yes: Alert, Oriented Labs: CBC, BMP 10/16/17 06:30 10/16/17 06:30 INR, PTT INR 1.56 (0.82-1.09) H 10/16/17 09:00 CBCD WBC 7.4 K/mm3 (4.0-10.0) 10/16/17 06:30 RBC 3.01 M/mm3 (3.60-5.2) L 10/16/17 06:30 Hgb 9.6 GM/dL (10.7-15.3) L 10/16/17 06:30 Hct 27.9 % (32.4-45.2) L 10/16/17 06:30 MCV 92.9 fl (80-96) 10/16/17 06:30 MCHC 34.2 g/dl (32.0-36.0) 10/16/17 06:30 RDW 13.4 % (11.6-15.6) 10/16/17 06:30 Plt Count 314 K/MM3 (134-434) 10/16/17 06:30 MPV 8.4 fl (7.5-11.1) 10/16/17 06:30 CMP Sodium 141 mmol/L (136-145) 10/16/17 06:30 Potassium 3.0 mmol/L (3.5-5.1) L 10/16/17 06:30 Chloride 105 mmol/L (98-107) 10/16/17 06:30 Carbon Dioxide 26 mmol/L (21-32) 10/16/17 06:30 Anion Gap 10 (8-16) 10/16/17 06:30 BUN 7 mg/dL (7-18) 10/16/17 06:30 Creatinine 0.5 mg/dL (0.55-1.02) L 10/16/17 06:30 Creat Clearance w eGFR > 60 (>60) 10/16/17 06:30 Calcium 7.7 mg/dL (8.5-10.1) L 10/16/17 06:30 Total Bilirubin 0.3 mg/dL (0.2-1.0) D 10/16/17 06:30 AST 13 U/L (15-37) L 10/16/17 06:30 ALT 30 U/L (12-78) 10/16/17 06:30 Alkaline Phosphatase 131 U/L (45-117) H 10/16/17 06:30 Total Protein 6.1 g/dl (6.4-8.2) L 10/16/17 06:30 Albumin 2.6 g/dl (3.4-5.0) L 10/16/17 06:30 Problem List - Problems (1) Cholecystitis Code(s): K81.9 - CHOLECYSTITIS, UNSPECIFIED (2) Atrial fibrillation with rapid ventricular response Code(s): I48.91 - UNSPECIFIED ATRIAL FIBRILLATION (3) Epigastric abdominal pain Code(s): R10.13 - EPIGASTRIC PAIN (4) Afib Code(s): I48.91 - UNSPECIFIED ATRIAL FIBRILLATION (5) Cholelithiasis Code(s): K80.20 - CALCULUS OF GALLBLADDER W/O CHOLECYSTITIS W/O OBSTRUCTION Assessment/Plan Plan EGD in am, if remains stable from cardiology perspective. Hold heparin 4 hrs prior to EGD was discussed with primary team
[2017-10-16 12:27] LABS: MAGNESIUM 1.8 mg/dL (1.8-2.4)
[2017-10-16] MEDS ORDERED: AMIODARONE HCL 200 MG TABLET (FP) PO SCH (15:30)
--- NOTE | 2017-10-16 15:36 | PN ---
Progress Note, Physician Chief Complaint: Cardiology FU Telem PAF rapid HR-converted to NSR. Nausea and abdominal pain improved after Zofran. History of Present Illness: 57 year old woman with a PMHx of paroxysmal atrial fibrillation (not on anticoagulants), and pericarditis with small pericardial effusion admitted 2017 with epigastric pain that began approximately 2 days prior to the admission. The patient was seen by GI. EGD planned. The patient developed recurrent atrial fibrillation, spontaneously cardioverted to sinus and relapsed with initially atrial flutter and changed to atrial fibrillation with rapid VR while receiving IV diltiazem, metoprolol and digoxin. Repeat echocardiogram 10/12/2017 showed normal LV size, wall motion and systolic function. LVEF = 70%. Normal RV. Normal LA and RA. Small and moderate (1-2 cm) pericardial effusion. 10/15/17: she had recurrent atrial fibrillation with rvr responded to dig load with amiodarone. - Current Medication List Current Medications: Active Medications Amiodarone HCl (Cordarone -) 400 mg PO TID [facility] Heparin Sodium (Porcine) (Heparin -) 1,000 unit IVPUSH PRN PRN PRN Reason: Heparin Last Admin: 10/14/17 01:00 Dose: 1,000 unit Heparin Sodium (Porcine) (Heparin -) 5,000 unit IVPUSH PRN PRN PRN Reason: Heparin Heparin Sodium/Dextrose (Heparin Infusion -) 25,000 units in 500 mls @ 20 mls/ hr IVPB TITR GWYN; 1,000 UNITS/HR PRN Reason: Protocol Stop: 10/17/17 02:00 Last Admin: 10/15/17 16:38 Dose: 1,100 units/hr, 22 mls/hr Dextrose/Sodium Chloride (D5-Ns -) 1,000 mls @ 75 mls/hr IV ASDIR GWYN Last Admin: 10/16/17 09:22 Dose: 75 mls/hr Morphine Sulfate (Morphine Sulfate) 2 mg IVPUSH Q4H PRN PRN Reason: PAIN LEVEL 7 - 10 Last Admin: 10/16/17 10:12 Dose: 2 mg Ondansetron HCl (Zofran Injection) 4 mg IVPUSH Q6H PRN PRN Reason: NAUSEA AND/OR VOMITING Last Admin: 10/16/17 03:00 Dose: 4 mg Pantoprazole Sodium (Protonix Iv) 40 mg IVPUSH DAILY GWYN Last Admin: 10/16/17 09:12 Dose: 40 mg - Objective Vital Signs: Vital Signs Temperature 98.5 F 10/16/17 14:00 Pulse Rate 58 L 10/16/17 14:00 Respiratory Rate 20 10/16/17 14:00 Blood Pressure 137/85 10/16/17 14:00 O2 Sat by Pulse Oximetry (%) 96 10/15/17 21:00 Constitutional: Yes: Well Nourished, No Distress, Calm Eyes: Yes: Conjunctiva Clear HENT: Yes: Atraumatic, Normocephalic Neck: Yes: Supple, Trachea Midline Cardiovascular: Yes: Regular Rate and Rhythm Respiratory: Yes: Regular, CTA Bilaterally Gastrointestinal: Yes: Normal Bowel Sounds, Soft Extremities: Yes: WNL Edema: No Labs: CBC, BMP 10/16/17 06:30 10/16/17 06:30 INR, PTT INR 1.56 (0.82-1.09) H 10/16/17 09:00 Laboratory Tests 10/16/17 10/16/17 06:30 06:30 PTT (Actin FS) 53.3 H C-Reactive Protein 6.4 H Albumin 2.6 L Problem List - Problems (1) Atrial fibrillation with rapid ventricular response Code(s): I48.91 - UNSPECIFIED ATRIAL FIBRILLATION (2) Pericardial effusion Code(s): I31.3 - PERICARDIAL EFFUSION (NONINFLAMMATORY) (3) Afib Code(s): I48.91 - UNSPECIFIED ATRIAL FIBRILLATION Assessment/Plan 57 F PAF and persistent epigastric abdominal pain with nausea. Treated for pericarditis with NSAID and colchicine. 1. Place on Amiodarone 400mg TID. * Telemetry * IV heparin OK to hold pre EGD. * She has no cardiac contraindications to EGD. This is a low risk procedure. 2) Pericarditis with small to moderate pericardial effusion. * Will consider prednisone for pericardial effusion after GI evaluation, but would rather treat with colchicine and indomethacin. Will reassess regimen post EGD. * will follow serial echoes as well as esr and crp. * would also consider rheumatology evaluation for serologies and workup.
[2017-10-16] MEDS: HEPARIN INFUSION - 25,000 UNITS/500 ML INFUS.BAG IVPB SCH (15:37)
[2017-10-16] MEDS ORDERED: METOCLOPRAMIDE HCL INJECTION 10 MG/2 ML VIAL IVPUSH PRN (16:05)
[2017-10-16] MEDS ORDERED: SODIUM CHLORIDE 1,000 ML IV SCH (16:15)
[2017-10-16] MEDS: AMIODARONE HCL 200 MG TABLET (FP) PO SCH (21:56)
[2017-10-17] MEDS: AMIODARONE HCL 200 MG TABLET (FP) PO SCH ×3 (06:02→21:49)
[2017-10-17 07:15] LABS: HEMATOCRIT 28.8 % (32.4-45.2); MCH 31.9 pg (25.7-33.7); MCHC 34.7 g/dl (32.0-36.0); MEAN CELL VOLUME 91.9 fl (80-96); MEAN PLT VOLUME 8.3 fl (7.5-11.1); PLATELET COUNT 338 K/MM3 (134-434); RBC 3.13 M/mm3 (3.60-5.2); RDW 13.5 % (11.6-15.6); WHITE BLOOD COUNT 7.1 K/mm3 (4.0-10.0)
[2017-10-17] MEDS ORDERED: PROPOFOL 20 ML ONE ×4 (07:53)
[2017-10-17] MEDS ORDERED: LIDOCAINE HCL/PF 2% SDV 5ML VIAL ONE (07:53)
--- NOTE | 2017-10-17 08:18 | PROC ---
Endoscopy Procedure Endoscopy procedure completed. Please see scanned procedure report. Normal EGD, random biopsies taken. Follow result in 1 week in office.
[2017-10-17] MEDS ORDERED: HEPARIN NA (PORCINE) 5,000 UNITS/ML 1ML VIAL IVPUSH PRN ×2 (08:22)
[2017-10-17] MEDS ORDERED: HEPARIN - 25,000 UNIT in SODIUM CHLORIDE 495 ML IV SCH (08:30)
[2017-10-17] MEDS: PANTOPRAZOLE SODIUM 40 MG VIAL IVPUSH SCH (09:14)
--- NOTE | 2017-10-17 09:27 | PN ---
Physical Exam: SUBJECTIVE: Patient seen and examined at the bedside. OBJECTIVE: Cost for Coumadin 5mg x 30 pills is $15.00 at [facility] Vital Signs Period Temp Pulse Resp BP Sys/Rao Pulse Ox Last 24 Hr 98 F-99.3 F 58-110 16-20 115-150/70-94 96-100 GENERAL: The patient is awake, alert, and fully oriented, HEAD: Normal with no signs of trauma. EYES: PERRL, extraocular movements intact, sclera anicteric, conjunctiva clear. No ptosis. ENT: Ears normal, nares patent, oropharynx clear without exudates, moist mucous membranes. NECK: Trachea midline, full range of motion, supple. LUNGS: Breath sounds equal,diminished on left base HEART: SR on monitoring and evaluation advisor ABDOMEN: Soft, mildly distended, Pain to light palpation of epigastric area, guarding her abdomen EXTREMITIES: 2+ pulses, warm, well-perfused, no edema. NEUROLOGICAL: Cranial nerves II through XII grossly intact. Normal speech, gait not observed. PSYCH: Normal mood, normal affect. SKIN: Warm, dry, normal turgor, no rashes or lesions noted Laboratory Results - last 24 hr 10/16/17 10/16/17 10/16/17 06:30 06:30 06:30 WBC RBC Hgb Hct MCV MCH MCHC RDW Plt Count MPV ESR 47 H PTT (Actin FS) Sodium 141 Potassium 3.0 L Chloride 105 Carbon Dioxide 26 Anion Gap 10 BUN 7 Creatinine 0.5 L Creat Clearance w eGFR > 60 Random Glucose 121 H Calcium 7.7 L Magnesium 1.8 Cancelled Total Bilirubin 0.3 D AST 13 L ALT 30 Alkaline Phosphatase 131 H C-Reactive Protein 6.4 H Total Protein 6.1 L Albumin 2.6 L 10/16/17 10/17/17 10/17/17 17:00 06:45 06:45 WBC 7.1 RBC 3.13 L Hgb 10.0 L Hct 28.8 L MCV 91.9 MCH 31.9 MCHC 34.7 RDW 13.5 Plt Count 338 MPV 8.3 ESR PTT (Actin FS) 40.2 H Sodium Potassium 3.3 L Chloride Carbon Dioxide Anion Gap BUN Creatinine Creat Clearance w eGFR Random Glucose Calcium Magnesium Total Bilirubin AST ALT Alkaline Phosphatase C-Reactive Protein Total Protein Albumin Active Medications Generic Name Dose Route Start Last Admin Trade Name Freq PRN Reason Stop Dose Admin Amiodarone HCl 400 mg 10/16/17 15:40 10/17/17 06:02 Cordarone - PO 400 mg TID [facility] Administration Heparin Sodium (Porcine) 1,000 unit 10/17/17 08:22 Heparin - IVPUSH PRN PRN Heparin Heparin Sodium (Porcine) 5,000 unit 10/17/17 08:22 Heparin - IVPUSH PRN PRN Heparin Heparin Sodium (Porcine) 25, 500 mls @ 16 mls/hr 10/17/17 08:30 000 unit/ Sodium Chloride IV TITR GWYN Protocol 800 UNIT/HR Metoclopramide HCl 10 mg 10/16/17 16:05 Reglan Injection - IVPUSH Q8H PRN NAUSEA AND/OR VOMITING Morphine Sulfate 2 mg 10/16/17 09:32 10/16/17 10:12 Morphine Sulfate IVPUSH 2 mg Q4H PRN Administration PAIN LEVEL 7 - 10 Pantoprazole Sodium 40 mg 10/14/17 10:00 10/17/17 09:14 Protonix Iv IVPUSH 40 mg DAILY GWYN Administration ASSESSMENT/PLAN: Patient is a 57 year old woman with a significant past medical history of hypertension. She presents to the ED with epigastric pain and nausea. She is unable to eat, experiencing nausea. Epigastric pain does not radiate but worsens with eating and is not associated with diaphoresis, chest pain or palpitations. She denies lightheadedness. Patient was recently here between 09/30/2017 and 10/03/2017 for chest pain and was found to have new onset afib. Patient was placed on a Cardizem drip and discharged on Lopressor for rate control She was not anticoagulated as her CHADSVASC score was low. Her chest pain was thought to be likely secondary to her pericarditis related to small pericardial effusion. On last admission, patient was discharged with colchicine and ibuprofen taper per her mail rider Imagin09/30/17 MRCP - cholelithiasis, no evidence of cholecystitis. 10/01/17 CTA - no PE. Mild bibasilar atelectatic changes and probably infiltrates with minimal bhavani pleural effusion. Pericardial effusion of 1.5cm width noted along Left inferior margin 10/02/17 Echo -LVEF 65-70%. Left ventricle normal in size and systolic function. Right ventricle systolic function normal. No regional wall motion abnormalities. Moderate MR/TR. Small pericardial effusion, < 1cm. 10/12/2017: abd u/s cholelithiasis with thick walled gallbladder, acute cholecystitis cannot be excluded 10/12/2017: Echo: larger pericardial effusion compared to last visit Chest xray 10/12: large heart, left base/costrophrenic angle changes Cardiology: Prox. afib with rapid RVR Currently rate controlled on Amiodorone 400mg TID Heparin drip stopped and patient now on Coumadin 5mg As per mail rider, pt does not need to be bridged to Coumadin, goal INR is 2-3 CTA on 10/01/17, negative for PE monitoring and evaluation advisor x 24 more hours Pericardial effusion, Echo 10/12 shows increase in pericardial effusion Discussed with mail rider, will need repeat echocardiogram in [address] Tabor GI: Abdominal pain/epigastric pain EGD negative Start on clears and advance as tolerated On Reglan PRN Monitor labs, vitals Surgical evaluation once patient has repeat echo and cleared by cardiology Dr. Conte following F.E.N. Fluids: tolerating PO Electrolytes: hypoK repleted Nutrition: clears Prophylaxis: DVT: Coumadin 5mg daily GI: Protonix IV Incentive spirometer full code Visit type - Emergency Visit Emergency Visit: Yes ED Registration Date: 10/12/17 Care time: The patient presented to the Emergency Department on the above date and was hospitalized for further evaluation of their emergent condition. - New Patient This patient is new to me today: No - Critical Care Critical Care patient: No - Discharge Referral Referred to [facility] No
--- NOTE | 2017-10-17 10:12 | PN ---
Progress Note, Physician Chief Complaint: Cardiology FU Breif PAF rapid HR-converted to NSR. No abdominal pain or nausea. EGD negative. History of Present Illness: 57 year old woman with a PMHx of paroxysmal atrial fibrillation (not on anticoagulants), and presumed pericarditis with small pericardial effusion admitted 10/12/2017 with epigastric pain that began approximately 2 days prior to the admission. The patient was seen by GI. EGD planned. The patient developed recurrent atrial fibrillation, spontaneously cardioverted to sinus and relapsed with initially atrial flutter and changed to atrial fibrillation with rapid VR while receiving IV diltiazem, metoprolol and digoxin. Repeat echocardiogram 10/12/2017 showed normal LV size, wall motion and systolic function. LVEF = 70%. Normal RV. Normal LA and RA. Small and moderate (1-2 cm) pericardial effusion. - Current Medication List Current Medications: Active Medications Amiodarone HCl (Cordarone -) 400 mg PO TID [facility] Last Admin: 10/17/17 06:02 Dose: 400 mg Heparin Sodium (Porcine) (Heparin -) 1,000 unit IVPUSH PRN PRN PRN Reason: Heparin Heparin Sodium (Porcine) (Heparin -) 5,000 unit IVPUSH PRN PRN PRN Reason: Heparin Heparin Sodium (Porcine) 25, (000 unit/ Sodium Chloride) 500 mls @ 16 mls/hr IV TITR GWYN; 800 UNIT/HR PRN Reason: Protocol Metoclopramide HCl (Reglan Injection -) 10 mg IVPUSH Q8H PRN PRN Reason: NAUSEA AND/OR VOMITING Morphine Sulfate (Morphine Sulfate) 2 mg IVPUSH Q4H PRN PRN Reason: PAIN LEVEL 7 - 10 Last Admin: 10/16/17 10:12 Dose: 2 mg Pantoprazole Sodium (Protonix Iv) 40 mg IVPUSH DAILY [facility] Last Admin: 10/17/17 09:14 Dose: 40 mg - Objective Vital Signs: Vital Signs Temperature 98.8 F 10/17/17 08:13 Pulse Rate 61 10/17/17 08:48 Respiratory Rate 16 10/17/17 08:48 Blood Pressure 124/83 10/17/17 08:48 O2 Sat by Pulse Oximetry (%) 96 10/17/17 08:48 Constitutional: Yes: Well Nourished, No Distress, Calm Eyes: Yes: Conjunctiva Clear HENT: Yes: Atraumatic, Normocephalic Neck: Yes: Supple, Trachea Midline Cardiovascular: Yes: Regular Rate and Rhythm. No: JVD, Murmur, Rub Respiratory: Yes: Regular, CTA Bilaterally Gastrointestinal: Yes: Normal Bowel Sounds, Soft. No: Distention, Hyperactive Bowel Sounds, Palpable Mass, Tenderness Extremities: Yes: WNL Edema: No Labs: CBC, BMP 10/17/17 06:45 10/16/17 17:00 INR, PTT INR 1.56 (0.82-1.09) H 10/16/17 09:00 Problem List - Problems (1) Atrial fibrillation with rapid ventricular response Code(s): I48.91 - UNSPECIFIED ATRIAL FIBRILLATION (2) Pericardial effusion Code(s): I31.3 - PERICARDIAL EFFUSION (NONINFLAMMATORY) (3) Afib Code(s): I48.91 - UNSPECIFIED ATRIAL FIBRILLATION Assessment/Plan 57 F PAF and persistent epigastric abdominal pain with nausea. Treated for pericarditis with NSAID and colchicine. 1. Afib frequency has improved with Amiodarone 400mg TID. * Follow LFT * ECG today * Place on coumadin if unable to secure NOAC as an out patient. Follow INR as out patient with a goal of 2-3 on coumadin. * Continue telemetry for 24 hours. 2) possible Pericarditis with small to moderate pericardial effusion. * Given improvement in symptoms, and resolution of pain off NSAID/colchesine, will hold off on further medication at this time. No ECG changes to suggest pericardial inflammation. * Repeat echocardiogram in 2 weeks
[2017-10-17 10:24] LABS: BASO % 0.7 % (0-2.0); HEMATOCRIT 31.5 % (32.4-45.2); HEMOGLOBIN 10.8 GM/dL (10.7-15.3); LYMPH % 14.1 % (8-40); MCH 31.6 pg (25.7-33.7); MCHC 34.3 g/dl (32.0-36.0); MEAN CELL VOLUME 92.1 fl (80-96); MEAN PLT VOLUME 7.7 fl (7.5-11.1); MONO % 10.3 % (3.8-10.2); NEUT % 73.9 % (42.8-82.8); PLATELET COUNT 357 K/MM3 (134-434); RBC 3.42 M/mm3 (3.60-5.2); RDW 13.8 % (11.6-15.6)
[2017-10-17 10:46] LABS: ALK PHOS 140 U/L (45-117); ANION GAP 5 (8-16); BILIRUBIN,TOTAL 0.3 mg/dL (0.2-1.0); BLOOD UREA NITROGEN 4 mg/dL (7-18); CHLORIDE 106 mmol/L (98-107); CO2 29 mmol/L (21-32); CREATININE 0.5 mg/dL (0.55-1.02); GLUCOSE,RANDOM 85 mg/dL (74-106); MAGNESIUM 1.9 mg/dL (1.8-2.4); POTASSIUM 3.2 mmol/L (3.5-5.1); SGOT/AST 31 U/L (15-37); SGPT/ALT 40 U/L (12-78); SODIUM 140 mmol/L (136-145); TOT PROT 6.7 g/dl (6.4-8.2)
[2017-10-17 10:53] LABS: CALCIUM 7.1 mg/dL (8.5-10.1)
[2017-10-17 11:18] LABS: INR 1.58 (0.82-1.09); PROTHROMBIN TIME (PATIENT) 17.8 SEC (9.98-11.88)
[2017-10-17] MEDS ORDERED: ACETAMINOPHEN 325 MG TABLET (FP) PO PRN (11:26)
[2017-10-17] MEDS ORDERED: WARFARIN NA 5 MG TABLET (UD) PO ONE (11:27)
[2017-10-17] MEDS: POTASSIUM CHLORIDE TABS 20 MEQ TABLET.ER (FP) PO ONE (11:59)
[2017-10-18] MEDS: AMIODARONE HCL 200 MG TABLET (FP) PO SCH (05:47)
[2017-10-18 06:32] VITALS: PULSE 74; TEMP 98.2
[2017-10-18 07:10] LABS: HEMATOCRIT 31.3 % (32.4-45.2); HEMOGLOBIN 10.9 GM/dL (10.7-15.3); MCH 31.9 pg (25.7-33.7); MCHC 34.9 g/dl (32.0-36.0); MEAN CELL VOLUME 91.6 fl (80-96); MEAN PLT VOLUME 8.1 fl (7.5-11.1); PLATELET COUNT 439 K/MM3 (134-434); RBC 3.42 M/mm3 (3.60-5.2); RDW 13.9 % (11.6-15.6)
[2017-10-18 08:16] VITALS: BP 123/78
--- NOTE | 2017-10-18 08:59 | DS ---
Physical Exam: SUBJECTIVE: Patient seen and examined OBJECTIVE: Vital Signs Period Temp Pulse Resp BP Sys/Rao Pulse Ox Last 24 Hr 98.2 F-99 F 61-74 20-20 114-132/65-85 95-95 PHYSICAL EXAM GENERAL: The patient is awake, alert, and fully oriented, in no acute distress. HEAD: Normal with no signs of trauma. EYES: PERRL, extraocular movements intact, sclera anicteric, conjunctiva clear. ENT: Ears normal, nares patent, oropharynx clear without exudates, moist mucous membranes. NECK: Trachea midline, full range of motion, supple. LUNGS: Breath sounds equal, clear to auscultation bilaterally, no wheezes, no crackles, no accessory muscle use. HEART: Regular rate and rhythm, S1, S2 without murmur, rub or gallop. ABDOMEN: Soft, nontender, nondistended, normoactive bowel sounds, no guarding, no rebound, no hepatosplenomegaly, no masses. EXTREMITIES: 2+ pulses, warm, well-perfused, no edema. NEUROLOGICAL: Cranial nerves II through XII grossly intact. Normal speech, gait not observed. PSYCH: Normal mood, normal affect. SKIN: Warm, dry, normal turgor, no rashes or lesions noted. LABS Laboratory Results - last 24 hr 10/17/17 10/17/17 10/17/17 10:05 10:05 10:05 WBC 7.0 RBC 3.42 L Hgb 10.8 Hct 31.5 L MCV 92.1 MCH 31.6 MCHC 34.3 RDW 13.8 Plt Count 357 MPV 7.7 Neutrophils % 73.9 Lymphocytes % 14.1 Monocytes % 10.3 H Eosinophils % 1.0 Basophils % 0.7 PT with INR 17.80 H INR 1.58 H PTT (Actin FS) Sodium 140 Potassium 3.2 L Chloride 106 Carbon Dioxide 29 Anion Gap 5 L BUN 4 L Creatinine 0.5 L Creat Clearance w eGFR > 60 Random Glucose 85 Calcium 7.1 L Magnesium 1.9 Total Bilirubin 0.3 AST 31 ALT 40 Alkaline Phosphatase 140 H Total Protein 6.7 Albumin 3.0 L 10/18/17 10/18/17 05:00 05:00 WBC 7.0 RBC 3.42 L Hgb 10.9 Hct 31.3 L MCV 91.6 MCH 31.9 MCHC 34.9 RDW 13.9 Plt Count 439 H D MPV 8.1 Neutrophils % Lymphocytes % Monocytes % Eosinophils % Basophils % PT with INR INR PTT (Actin FS) 37.1 H Sodium Potassium Chloride Carbon Dioxide Anion Gap BUN Creatinine Creat Clearance w eGFR Random Glucose Calcium Magnesium Total Bilirubin AST ALT Alkaline Phosphatase Total Protein Albumin HOSPITAL COURSE: Date of Admission:10/12/17 Date of Discharge: 10/18/17 Assessment: This is a 57 year old female with PMHx of paroxysmal a.fib ( diagnosed on prior admission 09/2017), pericarditis, who presented to the ED with epigastric pain and nausea. 1) Paroxysmal A.fib with RVR - Recurrent a.fib with RVR, which responded to digoxin loading and converted to SR - Treated with amiodarone gtt, then transitioned to PO 400mg TID, presently rate -controlled - No insurance coverage for NOAC, started on warfarin - Outpatient followup with Dr. Moreland at [facility] for INR checks 2) Pericarditis with pericardial effusion - Treated on last admission 09/30-10/03 for acute pericarditis - Echo 10/12/2017 showed normal LV size, wall motion and systolic function; LVEF 70%; small to moderate (1-2 cm) pericardial effusion (increase from previous) - No evidence of cardiac tamponade - Per cardiology, will need repeat echo in [address] Tabor's office - no anti-inflammatories on discharge as symptoms have resolved 3) Epigastric pain - MRCP 09/30 with cholelithiasis and no evidence of cholecystitis - 10/12/2017: abd u/s cholelithiasis with thick walled gallbladder, acute cholecystitis cannot be excluded - EGD 10/17/17: unremarkable study - seen and evaluated by surgeon Dr. Conte; patient will need repeat echo and clearance by cardiology prior to possible surgical intervention for cholecystitis Minutes to complete discharge: 35 Discharge Summary Reason For Visit: PERICARDIAL EFFUSION Current Active Problems Atrial fibrillation with rapid ventricular response (Acute) Cholecystitis (Acute) Epigastric abdominal pain (Acute) Pericardial effusion (Acute) Condition: Improved - Instructions Referrals: Amadou Tabor MD [Staff Physician] - 2 Weeks (repeat echocardiogram in two weeks to follow up on pericardial effusion) Robinson Moreland MD [Staff Physician] - 10/20/17 1:30 pm (INR check) Anish Conte MD [Staff Physician] - 1 Month Disposition: HOME - Home Medications Comprehensive Discharge Medication List: Ambulatory Orders Colchicine [Colcrys -] 0.6 mg PO DAILY #30 tablet 10/03/17 Ibuprofen [Motrin -] 600 mg PO TID #60 tablet 10/03/17 Metoprolol Tartrate [Lopressor -] 25 mg PO BID #60 tablet 10/03/17 Omeprazole 40 mg PO DAILY 10/12/17 This patient is new to me today: Yes Date on this admission: 10/18/17 Emergency Visit: Yes ED Registration Date: 10/12/17 Care time: The patient presented to the Emergency Department on the above date and was hospitalized for further evaluation of their emergent condition. Critical Care patient: No - Discharge Referral Referred to [facility] No
[2017-10-18] MEDS: PANTOPRAZOLE SODIUM 40 MG VIAL IVPUSH SCH (10:04)
[2017-10-18 10:11] LABS: INR 2.92 (0.82-1.09)
[2017-10-18 10:22] LABS: BASO % 0.5 % (0-2.0); EOS % 1.7 % (0-4.5); HEMATOCRIT 31.9 % (32.4-45.2); HEMOGLOBIN 10.9 GM/dL (10.7-15.3); LYMPH % 16.1 % (8-40); MCH 31.5 pg (25.7-33.7); MCHC 34.1 g/dl (32.0-36.0); MEAN CELL VOLUME 92.3 fl (80-96); MONO % 10.7 % (3.8-10.2); PLATELET COUNT 408 K/MM3 (134-434); RBC 3.46 M/mm3 (3.60-5.2); RDW 13.8 % (11.6-15.6); WHITE BLOOD COUNT 7.2 K/mm3 (4.0-10.0)
[2017-10-18 10:38] LABS: ANION GAP 11 (8-16); BLOOD UREA NITROGEN 5 mg/dL (7-18); CALCIUM 8.4 mg/dL (8.5-10.1); CHLORIDE 103 mmol/L (98-107); CO2 26 mmol/L (21-32); GLUCOSE,RANDOM 71 mg/dL (74-106); MAGNESIUM 2.3 mg/dL (1.8-2.4); POTASSIUM 3.5 mmol/L (3.5-5.1); SODIUM 140 mmol/L (136-145)
[2017-10-18 10:45] LABS: ALK PHOS 137 U/L (45-117); BILIRUBIN,TOTAL 0.5 mg/dL (0.2-1.0); CREATININE 0.5 mg/dL (0.55-1.02); SGOT/AST 28 U/L (15-37); SGPT/ALT 41 U/L (12-78); TOT PROT 6.7 g/dl (6.4-8.2)
[2017-10-18] MEDS ORDERED: WARFARIN NA 5 MG TABLET (UD) PO ONE (11:15)
--- NOTE | 2017-10-18 11:16 | PATH ---
Surgical Pathology Report Patient Name: ARTURO DAVILA [facility]. Rec. #: [id number] /Age/Gender: 1960 (Age: 57) / F Account: [id number] Location: 4 TELEMETRY U Taken: 10/17/2017 Received: 10/17/2017 Reported: 10/18/2017 Physicians: Sylvester Teresa F.N.P. Specimen(s) Received A: BX 2ND PORTION OF DUODENUM B: BX ANTRUM Clinical History Preoperative diagnosis: Abdominal pain Postoperative diagnosis: Normal upper endoscopy Final Diagnosis A. DUODENUM, SECOND PORTION, BIOPSY: DUODENAL MUCOSA WITHOUT SIGNIFICANT PATHOLOGIC FINDINGS. B. STOMACH, ANTRUM, BIOPSY: GASTRIC ANTRAL MUCOSA WITH MODERATE CHRONIC GASTRITIS. IMMUNOHISTOCHEMICAL STAIN FOR H. PYLORI IS NEGATIVE. Electronically Signed Shelia Chilel M.D. Gross Description A. Received in formalin, labeled "biopsy second portion of duodenum" is a avila, irregular portion of soft tissue measuring 0.3 cm. in greatest dimension. The specimen is submitted in toto in one cassette. B. Received in formalin, labeled "biopsy antrum" are 2 avila, irregular portions of soft tissue measuring 0.3 and 0.4 cm. in greatest dimension. The specimens are submitted in toto in one cassette. 10/17/2017 saudi10/17/2017
== END 2017-10-18 12:59 | disposition home or self-care (01) ==
LOC: JER 09:40 → JERBED 14:33 → J4W 19:15
PROVIDERS: ADMIT Internal Medicine; ATTEND Nurse Practitioner Acute Care
PROC: 0DD68ZX Extraction of Stomach, Via Natural or Artificial Opening Endoscopic, Diagnostic (ICD-10-PCS; 2017-10-17)
PROC: 0DD98ZX Extraction of Duodenum, Via Natural or Artificial Opening Endoscopic, Diagnostic (ICD-10-PCS; principal; 2017-10-17 08:06)
DX: K80.20 Calculus of gallbladder without cholecystitis without obstruction (principal); I31.3 Pericardial effusion (noninflammatory); I10 Essential (primary) hypertension; I48.0 Paroxysmal atrial fibrillation; I48.92 Unspecified atrial flutter; K29.50 Unspecified chronic gastritis without bleeding; I31.9 Disease of pericardium, unspecified
CPT/HCPCS: 36415; 71045-TC-FY; 76705-TC; 80053; 80061; 82248; 83690; 83721; 83735; 84132; 84484; 85025; 85027; 85610; 85651; 85730; 86140; 86850; 86900; 86901; 88305-TC; 93005; 93010; 93306-TC; 94010; 99283-25; J0131; J1644; J7030